=== PATIENT | male | born 1940 | race Caucasian/White ===

== ENCOUNTER → 2017-11-10 06:58 | Outpatient (CLI) | payer OTHER, SELFPAY ==
[2017-11-10 08:35] LABS: Add Manual Diff / Slide Review NO; Basophils Percent Auto 0.8 % (0-2); Eosinophils Percent Auto 2.3 % (2-4); Hematocrit 43.4 % (41-53); Hemoglobin 15.4 g/dL (13.5-17.5); Lymphocytes Percent Auto 26.2 % (25-40); Mean Corpuscular HGB Conc 35.4 % (30-36); Mean Corpuscular Hemoglobin 32.1 PG (26-34); Mean Corpuscular Volume 90.5 fL (80-100); Neutrophils Absolute Auto 2500 /uL (3000-5900); Neutrophils Percent Auto 57.7 % (50-75); Platelet Count 194 X10^3/uL (150-400); Red Cell Distribution Width 13.1 % (11.6-14.8); White Blood Cell Count 4.3 X10^3/uL (4.5-11.0)
[2017-11-10 12:23] LABS: Alanine Aminotransferase 21 IU/L (21-72); Albumin 4.2 g/dL (3.5-5.0); Albumin Globulin Ratio 1.6 (1.0-2.8); Alkaline Phosphatase 96 U/L (38-126); Aspartate Aminotransferase 25 IU/L (17-59); BUN Creatinine Ratio 25.6 (6-22); Bilirubin Total 1.6 mg/dL (0.2-1.3); Blood Urea Nitrogen 23 mg/dL (9-20); Carbon Dioxide 26 mmol/L (22-32); Chloride 105 mmol/L (98-107); Estimated Glomerular Filt Rate > 60.0 mL/min (>60); Globulin 2.7 g/dL (1.7-4.1); Glucose 97 mg/dL (80-110); HEMOLYSIS < 15 (0-50); Potassium 3.9 mmol/L (3.4-5.1); Sodium 142 mmol/L (137-145); Total Protein 6.9 g/dL (6.3-8.2)
== END ==
PROVIDERS: Family Provider Physician Assistant; PCP Physician Assistant; Visit Provider Psychiatry & Neurology Neurology
DX: T88.7XXA Unspecified adverse effect of drug or medicament, initial encounter (principal)
CPT/HCPCS: 36415; 80053; 85025

== ENCOUNTER → 2017-12-29 07:59 | Outpatient (CLI) | payer OTHER, SELFPAY ==
[2017-12-29 08:54] LABS: Add Manual Diff / Slide Review NO; Basophils Percent Auto 0.6 % (0-2); Eosinophils Percent Auto 2.4 % (2-4); Hematocrit 43.4 % (41-53); Hemoglobin 15.5 g/dL (13.5-17.5); Lymphocytes Percent Auto 24.2 % (25-40); Mean Corpuscular HGB Conc 35.7 % (30-36); Mean Corpuscular Volume 89.6 fL (80-100); Neutrophils Absolute Auto 3100 /uL (3000-5900); Neutrophils Percent Auto 58.8 % (50-75); Red Blood Cell Count 4.85 X10^6/uL (4.5-5.9); Red Cell Distribution Width 12.5 % (11.6-14.8); White Blood Cell Count 5.3 X10^3/uL (4.5-11.0)
[2017-12-29 09:40] LABS: Platelet Count 224 X10^3/uL (150-400)
== END ==
PROVIDERS: Family Provider Physician Assistant; PCP Physician Assistant; Visit Provider Physician Assistant
DX: D72.819 Decreased white blood cell count, unspecified (principal)
CPT/HCPCS: 36415; 85025

== ENCOUNTER → 2018-05-24 08:39 | Outpatient (CLI) | payer OTHER, SELFPAY ==
[2018-05-24 09:45] LABS: Alanine Aminotransferase 16 IU/L (21-72); Albumin 4.3 g/dL (3.5-5.0); Albumin Globulin Ratio 1.5 (1.0-2.8); Alkaline Phosphatase 90 U/L (38-126); Aspartate Aminotransferase 28 IU/L (17-59); BUN Creatinine Ratio 19.1 (6-22); Bilirubin Total 1.6 mg/dL (0.2-1.3); Blood Urea Nitrogen 21 mg/dL (9-20); Calcium 9.3 mg/dL (8.4-10.2); Carbon Dioxide 29 mmol/L (22-32); Chloride 102 mmol/L (98-107); Cholesterol 94 mg/dL (140-199); Estimated Glomerular Filt Rate > 60.0 mL/min (>60); Globulin 2.9 g/dL (1.7-4.1); Glucose 104 mg/dL (80-110); HDL Cholesterol 37 mg/dL (40-60); HEMOLYSIS < 15 (0-50); LDL Cholesterol Calculated 47 mg/dL (<100); Sodium 141 mmol/L (137-145); Total Protein 7.2 g/dL (6.3-8.2); Triglycerides 48 mg/dL (35-150)
== END ==
PROVIDERS: Family Provider Physician Assistant; PCP Physician Assistant; Visit Provider Internal Medicine Cardiovascular Disease
DX: E78.5 Hyperlipidemia, unspecified (principal); I10 Essential (primary) hypertension
CPT/HCPCS: 36415; 80053; 80061

== ENCOUNTER → 2018-09-30 16:35 | Outpatient (CLI) | payer OTHER, SELFPAY ==
[2018-09-30 19:53] LABS: Vitamin B12 601 pg/mL (239-931)
== END ==
PROVIDERS: PCP Physician Assistant; Visit Provider Physician Assistant
DX: E53.8 Deficiency of other specified B group vitamins (principal)
CPT/HCPCS: 36415; 82607

== ENCOUNTER 2019-05-18 14:30 | Outpatient (RCR) | payer OTHER, SELFPAY ==
--- NOTE | 2018-10-12 14:01 | ST.OPIE ---
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 Natalia Awad, [facility] Reason for Referral Parkinson's disease, hoarse voice Setting Setting Outpatient Care Patient History General Information This 78-yr-old male was diagnosed with Parkinson's disease ~2 yrs ago. He developed shuffling gait ~5 yrs ago and has experienced cognitive changes since diagnosis. He was seen for neuropsychomitric testing in March 2018 and diagnosed with mild neuro cognitive disorder. The pt continues with occasional balance and visuospatial processing problems and recently completed LSVT-Big with Physical Therapy 1 yr ago and continues with PT 1x/wk. He is interested in LSVT-Loud to improve voice/vocal loudness, as his voice has gotten softer , which is of particular impact on his . Pt denied tremor and swallow difficulties, although he reported a loss of smell and taste, which impacts his interest in food and has lessened his consumption. He does still drive limited distances and not on freeway. The pt has an extended family history of Parkinson's disease , including a brother who developed PD in his 40s and in his 60s; a sister with PD and significant dementia; a sister who was told she had PD and is now in a wheelchair, although the diagnosis is not certain. This obviously increases the pt's concern about his own developing symptoms. He also reported a brother, sister and 2 cousins who have been diagnosed with [place] Syndrome, which may be related to toxic environmental exposures. Finally, the pt has a pacemaker and is on blood thinners. He has concerns of falling, secondary to balance issues, and of potentially hitting his head and developing bleeding in his brain. He wears a helmet when engaged in any physical activity in which he may experience a fall (e.g., bike riding, walking outdoors, etc. ). His concern is exaccerbated by having had a sister who fell and from a brain hemorrhage. 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 Voice evaluation was initiated and will be completed in treatment. Pt was educated RE LSVT-Loud, as well as potential impact of Parkinson's disease on speech intelligibility, language skills, cognitive communication skills, swallow function/safety, and respiratory control and support for speech, swallow, cough, and general wellness. - Laryngeal Performance Voice Handicap Index Function Subtotal 24/40 Severe impact Physical Subtotal 17/40 Moderate impact Emotional Subtotal 15/40 Moderate-Severe impact Total Score 56/120 Moderate-Severe impact Severity Moderate (31-60) CAPE-V Overall Severity 55% Moderate Roughness 50% Moderate Loudness 39% Moderate Normal Resonance? Yes Maximum Phonation Time MPT Norms: Women (15-25) Men (25-35) Loudness (50-60 dB); Speaking Rate: Oral Reading of Sentences (190 Words Per Minute); Oral Reading of Paragraphs (160-170 WPM); Speaking Rate in Conversation (150-250 WPM) Maximum Phonation Time 42.48 sec @ avg 68 dB Maximum Phonation Time Adequate for Speech Maximum Phonation Time Comments Excellent respiratory control Pitch [place] Pitch [place] WNL Pitch [place] Comments 106-294 Hz @ avg 76 dB Breath Support Speaks on Room Air Yes Voice Pitch Range Norms: Women (100-300 Hz) Men (70-250 Hz) Fundamental Frequency Norms: Women (Mean: 225 Hz; Range: 155-334 Hz) Men ( Mean: 128 Hz; Range: 85-196 Hz) Voice Pitch Normal Limited Variation Voice Loudness Mildly Soft/Quiet Voice Phonatory-based Quality Hoarse Weak Intensity 59 dB in conversation Paradoxical Vocal Fold Movement No Indications Resonance Nasal Resonance Normal Oral Resonance Normal Therapeutic Techniques Therapy Tactics Breath Support Increase Loudness Findings Findings Moderate Impairment Observations Pt presents with 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 Pitch range is WNL; however, mild monotone voice is perceived during conversation. The pt is able to maintain phonation on single breath greater than normal limits, indicating excellent potential for using breath support and control to increase loudness and improve vocal quality. Speech is 100% intelligible. Facial expression appeared limited in today's conversation but will be further assessed with topics more conducive to facial expression use. Prognosis Rehabilitation Potential Excellent - Recommendations Treatment Recommended Yes: LSVT-Loud with use of cognitive tasks Treatment Frequency/Duration 16 visits in 4 wks Placement Recommendation Home Therapy Recommendations LSVT-Loud treatment with inclusion of cognitive exercises that require use of voice to target both vocal loudness in demanding situations and improve cognitive communication skills . Short Term Goals 1. Pt will sustain vowel phonation for 30 sec at 75 dB or greater across 3 trials to demonstrate consistent breath support for speech and improve vocal quality/stability. 2. Pt perform pitch glide exercises at avg of 65 dB or greater with min cues to increase pitch range and vocal stability at various pitches. 3. Pt will read Functional Phrases at avg of 70 dB or greater across 10 trials to increase speech intelligibility and promote carryover of vocal loudness into her functional environment. 4. Pt will read words/phrases with avg of 70 dB or greater with 90% accuracy and min cues to increase speech intelligibility. 5. Pt will maintain loudness levels between 60-65 dB in off -the-cuff remarks between structured tasks with min cues to increase speech intelligibility and promote carryover of adequate loudness in spontaneous conversation. Mechanical Shovel Operator Goals 1. Pt will produce prosodic features WFL in spontaneous conversation in 80% of opportunities to increase his ability to communicate ideas, opinions, and wants/needs. 2. Pt will produce vocal loudness in conversation WNL ( 65-75 dB) in 80% of opportunities to increase speech intelligibility in a variety of settings and with a variety of conversation partners. 3. Pt will report no more than mild impact of voice as measured by VHI (total score if patient perceptual rating). 4. Pt will exhibit vocal quality WNL as measured by CAPE-V (clinician perceptual rating). Patient/Caregiver Education Patient/Family Education Described results of evaluation Patient Understanding
--- NOTE | 2018-10-18 14:57 | ST.OPTN ---
Care Team Visit Care Team Role Provider Type Carisa Hoffmann PA-C Primary Care Provider Advanced Test Carrier Address: [address] [place] [address], [id number] Attending Provider Address: Phone: Fax: RESEARCH TECHNICIAN Treatment Note RESEARCH TECHNICIAN Treatment Note Start: 10/04/18 16:57 Freq: Status: Active Protocol: Document 10/18/18 11:14 ALEXANDRA (Rec: 10/18/18 11:30 ALEXANDRA [email or web address]) Speech Pathology Treatment Note Session Time Visit Start Time 08:30 Visit Stop Time 09:30 Total Visit Minutes 60 Visit Information Visit Number 04/01 Plan of Care Dates 10/04/18 - 12/22/18 [facility] Treatment Setting Outpatient Care Visit Type Note Type Treatment Note Next Note Type Next Note Type Treatment Note General Information General Information This 78-yr-old male was diagnosed with Parkinson's disease ~2 yrs ago. He developed shuffling gait ~5 yrs ago and has experienced cognitive changes since diagnosis. He was seen for neuropsychomitric testing in March 2018 and diagnosed with mild neuro cognitive disorder. The pt continues with occasional balance and visuospatial processing problems and recently completed LSVT-Big with Physical Therapy 1 yr ago and continues with PT 1x/wk. He is interested in LSVT-Loud to improve voice/vocal loudess, as his voice has gotten softer , which is of particular impact on his . Pt denied tremor and swallow difficulties, although he reported a loss of smell and taste, which impacts his interest in food and has lessened his consumption. He does still drive limited distances and not on freeway. The pt has an extended family history of Parkinson's disease , including a brother who developed PD in his 40s and in his 60s; a sister with PD and significant dementia; a sister who was told she had PD and is now in a wheelchair, although the diagnosis is not certain. This obviously increases the pt's concern about his own developing symptoms. He also reported a brother, sister and 2 cousins who have been diagnosed with [place] Syndrome, which may be related to toxic environmental exposures. Finally, the pt has a pacemaker and is on blood thinners. He has concerns of falling, secondary to balance issues, and of potentially hitting his head and developing bleeding in his brain. He wears a helmet when engaged in any physical activity in which he may experience a fall (e.g., bike riding, walking outdoors, etc. ). His concern is exaccerbated by having had a sister who fell and from a brain hemorrhage. Subjective Observations/Patient Presentation The pt arrived on time. He expressed concern that he may not be able to keep up with the home practice required for LSVT-Loud treatment. He requested and was provided the LSVT-Loud Homework Clinical Research Director to assist with compliance. He stated he still wished to initiate the treatment. Chief Complaint(s) Voice Additional Areas of Concern Cognition - STM Rehab Expectation/Goals: Patient Goals Increase vocal loudness to be heard by others, sandra Objective Short Term Goals 1. Pt will sustain vowel phonation for 30 sec at 75 dB or greater across 3 trials to demonstrate consistent breath support for speech and improve vocal quality/stability. 2. Pt perform pitch glide exercises at avg of 65 dB or greater with min cues to increase pitch range and vocal stability at various pitches. 3. Pt will read Functional Phrases at avg of 70 dB or greater across 10 trials to increase speech intelligibility and promote carryover of vocal loudness into her functional environment. 4. Pt will read words/phrases with avg of 70 dB or greater with 90% accuracy and min cues to increase speech intelligibility. 5. Pt will maintain loudness levels between 60-65 dB in off -the-cuff remarks between structured tasks with min cues to increase speech intelligibility and promote carryover of adequate loudness in spontaneous conversation. Manager Of Housekeeping Goals 1. Pt will produce prosodic features WFL in spontaneous conversation in 80% of opportunities to increase his ability to communicate ideas, opinions, and wants/needs. 2. Pt will produce vocal loudness in conversation WNL ( 65-75 dB) in 80% of opportunities to increase speech intelligibility in a variety of settings and with a variety of conversation partners. 3. Pt will report no more than mild impact of voice as measured by VHI (total score if patient perceptual rating). 4. Pt will exhibit vocal quality WNL as measured by CAPE-V (clinician perceptual rating). Treatment Activities Skilled education provided RE LSVT-Loud protocol and HEP. Initiated training in diaphragmatic breathing orally and with demonstration. Pt returned demonstration, exhibiting mixed diaphragmatic and clavicular breathing, resulting in increased shoulder and laryngeal tension . With guidance, he was able to increase toward diaphragmatic. Needs reinforcement. Collaborated with pt to establish Functional Phrases list. 8 statements were generated by the pt. Instructed pt to continue to build list of 10 over the next 1-2 days. Pt agreed. Initiated training of LSVT- Loud exercises: Sustained Phonation: MPT = 28. 41, dB not recorded in order to provide verbal feedback. Pt initially achieved 27.92 with avg loudness, mod-severe vocal hoarseness improved moderately with increased loudness. Pitch Range: 108-333 Hz. Avg loudness of Lows 74 dB; Highs 83 dB. Functional Phrases: Read with avg loudess of 69 dB Words & Phrases: Not targeted in this session. Will introduce in next. Conversation: Avg loudness across 7 trials: 61.6 dB; Range = 57-66 dB Assessment Patient Response to Treatment Good Rehab Potential Good Impairments Identified Cognitive-Linguistic Skills Memory - Short Term Parkinson's Disease Vocal Quality Assessment of Improvement The pt verbalized good understanding of LSVT-Loud protocol and desire to participate. He expressed some concern with HEP compliance and was appreciative of Homework Clinical Research Director to assist. He was responsive to training in diaphragmatic breathing and demonstrated initial shift from mixed (clavicular & diaphragmatic breathing) to diaphragmatic; needs reinforcement. He exhibited excellent duration of sustained phonation with moderate-severe vocal quality (hoarseness) pervasive throughout trial with loudness levels <70 dB. Vocal quality improved to intermittent hoarseness with increased loudness. The pt perceived the changed in quality with loudness levels. Loudness during reading task ( functional phrases) was near but below target levels, and loudness in conversation without prompting from Clinician often was significantly below normal/ target levels. The pt is an excellent candidate for LSVT-Loud, and prognosis is excellent if he complies with HEP. The pt did comment 2-3x over course of session on STM deficits, which will be screened and treated indirectly via speech tasks that require recall and/or other cognitive demands. Reviewed with Patient Goals Progress Being Made Home Exercise Program Patient/Caregiver Understanding Excellent Plan Therapeutic Contents Client Education Cognitive-Linguistic Training Home Exercise Program Voice Training Provided Patient/Caregiver Instruction Home Exercise Program Plan of Care Questions/Concerns Therapy Recommendations Continue with Current Program
--- NOTE | 2018-10-19 11:11 | ST.OPTN ---
Care Team Visit Care Team Role Provider Type Carisa Hoffmann PA-C Primary Care Provider Advanced Senior Designer Address: [address] [place] [address], [id number] Attending Provider Address: Phone: Fax: UPPER AND BOTTOM LACER HAND Treatment Note UPPER AND BOTTOM LACER HAND Treatment Note Start: 10/04/18 16:57 Freq: Status: Active Protocol: Document 10/19/18 10:59 ALEXANDRA (Rec: 10/19/18 11:11 ALEXANDRA [email or web address]) Speech Pathology Treatment Note Session Time Visit Start Time 08:30 Visit Stop Time 09:30 Total Visit Minutes 60 Visit Information Visit Number 05/02 Plan of Care Dates 10/04/18 - 12/22/18 [facility] Treatment Setting Outpatient Care Visit Type Note Type Treatment Note Next Note Type Next Note Type Treatment Note General Information General Information This 78-yr-old male was diagnosed with Parkinson's disease ~2 yrs ago. He developed shuffling gait ~5 yrs ago and has experienced cognitive changes since diagnosis. He was seen for neuropsychomitric testing in March 2018 and diagnosed with mild neuro cognitive disorder. The pt continues with occasional balance and visuospatial processing problems and recently completed LSVT-Big with Physical Therapy 1 yr ago and continues with PT 1x/wk. He is interested in LSVT-Loud to improve voice/vocal loudess, as his voice has gotten softer , which is of particular impact on his . Pt denied tremor and swallow difficulties, although he reported a loss of smell and taste, which impacts his interest in food and has lessened his consumption. He does still drive limited distances and not on freeway. The pt has an extended family history of Parkinson's disease , including a brother who developed PD in his 40s and in his 60s; a sister with PD and significant dementia; a sister who was told she had PD and is now in a wheelchair, although the diagnosis is not certain. This obviously increases the pt's concern about his own developing symptoms. He also reported a brother, sister and 2 cousins who have been diagnosed with [place] Syndrome, which may be related to toxic environmental exposures. Finally, the pt has a pacemaker and is on blood thinners. He has concerns of falling, secondary to balance issues, and of potentially hitting his head and developing bleeding in his brain. He wears a helmet when engaged in any physical activity in which he may experience a fall (e.g., bike riding, walking outdoors, etc. ). His concern is exaccerbated by having had a sister who fell and from a brain hemorrhage. Subjective Observations/Patient Presentation The pt arrived on time. He returned a completed homework sheet. Chief Complaint(s) Voice Additional Areas of Concern Cognition - STM Rehab Expectation/Goals: Patient Goals Increase vocal loudness to be heard by others, sandra Objective Short Term Goals 1. Pt will sustain vowel phonation for 30 sec at 75 dB or greater across 3 trials to demonstrate consistent breath support for speech and improve vocal quality/stability. 2. Pt perform pitch glide exercises at avg of 65 dB or greater with min cues to increase pitch range and vocal stability at various pitches. 3. Pt will read Functional Phrases at avg of 70 dB or greater across 10 trials to increase speech intelligibility and promote carryover of vocal loudness into her functional environment. 4. Pt will read words/phrases with avg of 70 dB or greater with 90% accuracy and min cues to increase speech intelligibility. 5. Pt will maintain loudness levels between 60-65 dB in off -the-cuff remarks between structured tasks with min cues to increase speech intelligibility and promote carryover of adequate loudness in spontaneous conversation. Director Asset Goals 1. Pt will produce prosodic features WFL in spontaneous conversation in 80% of opportunities to increase his ability to communicate ideas, opinions, and wants/needs. 2. Pt will produce vocal loudness in conversation WNL ( 65-75 dB) in 80% of opportunities to increase speech intelligibility in a variety of settings and with a variety of conversation partners. 3. Pt will report no more than mild impact of voice as measured by VHI (total score if patient perceptual rating). 4. Pt will exhibit vocal quality WNL as measured by CAPE-V (clinician perceptual rating). Treatment Activities Continued skilled education provided RE effects of PD on vocal loudness, breath support for speech, and associated goals of LSVT-Loud tx. All questions were answered. Continued collaboration with pt to establish Functional Phrases list. Pt completed LSVT-Loud exercises: Sustained Phonation: MPT = 31. 55, avg loundess 78.25 dB, mod verbal prompts, improved vocal quality with increased loudness, models and instructions to open throat and use expiratory muscles to power the voice. Excellent consistency of loudness levels over duration of each trial. Pitch Range: 83-331 Hz. Avg loudness of Lows 77.5 dB; Highs 81.5 dB. Functional Phrases: Read with avg loudness of 73.3 dB Words & Phrases: Read with avg loudness of 76.3 dB. Pt demonstrated increased self- perception of vocal loudness levels and ability to match target loudness (76 dB). Conversation: Avg loudness across 7 trials: 64 dB; Range = 60-69 dB Carryover Assignment: Conversation with Physical Therapist today. Assessment Patient Response to Treatment Good Rehab Potential Good Impairments Identified Cognitive-Linguistic Skills Memory - Short Term Parkinson's Disease Vocal Quality Assessment of Improvement The pt demonstrated and verbalized understanding of effects of PD on vocal loudness. Also demonstrated ability to increase loudness to meet target levels and to match a target x3 over reading of words and phrases tasks, indicating initial awareness of physical effort and auditory perception to meet targets. Loudness levels between tasks and in conversation tend to reduce significantly, as compared to levels in structured tasks. With verbal prompts, the pt did increase conversational loudness from low 60s dB to mid-upper 60s dB, improved from upper 50s dB yesterday. Reviewed with Patient Goals Progress Being Made Home Exercise Program Patient/Caregiver Understanding Excellent Plan Therapeutic Contents Client Education Cognitive-Linguistic Training Home Exercise Program Voice Training Provided Patient/Caregiver Instruction Home Exercise Program Plan of Care Questions/Concerns Therapy Recommendations Continue with Current Program
--- NOTE | 2018-10-20 13:03 | ST.OPTN ---
Care Team Visit Care Team Role Provider Type Carisa Hoffmann PA-C Primary Care Provider Advanced Combination Operator Address: [address] [place] [address], [id number] Attending Provider Address: Phone: Fax: INTERVENTIONAL CARDIOLOGIST Treatment Note INTERVENTIONAL CARDIOLOGIST Treatment Note Start: 10/04/18 16:57 Freq: Status: Active Protocol: Document 10/20/18 12:57 ALEXANDRA (Rec: 10/20/18 13:03 ALEXANDRA [email or web address]) Speech Pathology Treatment Note Session Time Visit Start Time 08:30 Visit Stop Time 09:30 Total Visit Minutes 60 Visit Information Visit Number 05/30 Plan of Care Dates 10/04/18 - 12/22/18 [facility] Treatment Setting Outpatient Care Visit Type Note Type Treatment Note Next Note Type Next Note Type Treatment Note General Information General Information This 78-yr-old male was diagnosed with Parkinson's disease ~2 yrs ago. He developed shuffling gait ~5 yrs ago and has experienced cognitive changes since diagnosis. He was seen for neuropsychomitric testing in March 2018 and diagnosed with mild neuro cognitive disorder. The pt continues with occasional balance and visuospatial processing problems and recently completed LSVT-Big with Physical Therapy 1 yr ago and continues with PT 1x/wk. He is interested in LSVT-Loud to improve voice/vocal loudess, as his voice has gotten softer , which is of particular impact on his . Pt denied tremor and swallow difficulties, although he reported a loss of smell and taste, which impacts his interest in food and has lessened his consumption. He does still drive limited distances and not on freeway. The pt has an extended family history of Parkinson's disease , including a brother who developed PD in his 40s and in his 60s; a sister with PD and significant dementia; a sister who was told she had PD and is now in a wheelchair, although the diagnosis is not certain. This obviously increases the pt's concern about his own developing symptoms. He also reported a brother, sister and 2 cousins who have been diagnosed with [place] Syndrome, which may be related to toxic environmental exposures. Finally, the pt has a pacemaker and is on blood thinners. He has concerns of falling, secondary to balance issues, and of potentially hitting his head and developing bleeding in his brain. He wears a helmet when engaged in any physical activity in which he may experience a fall (e.g., bike riding, walking outdoors, etc. ). His concern is exaccerbated by having had a sister who fell and from a brain hemorrhage. Subjective Observations/Patient Presentation The pt arrived on time. He returned a completed homework sheet. Chief Complaint(s) Voice Additional Areas of Concern Cognition - STM Rehab Expectation/Goals: Patient Goals Increase vocal loudness to be heard by others, sandra Objective Short Term Goals 1. Pt will sustain vowel phonation for 30 sec at 75 dB or greater across 3 trials to demonstrate consistent breath support for speech and improve vocal quality/stability. 2. Pt perform pitch glide exercises at avg of 65 dB or greater with min cues to increase pitch range and vocal stability at various pitches. 3. Pt will read Functional Phrases at avg of 70 dB or greater across 10 trials to increase speech intelligibility and promote carryover of vocal loudness into her functional environment. 4. Pt will read words/phrases with avg of 70 dB or greater with 90% accuracy and min cues to increase speech intelligibility. 5. Pt will maintain loudness levels between 60-65 dB in off -the-cuff remarks between structured tasks with min cues to increase speech intelligibility and promote carryover of adequate loudness in spontaneous conversation. Reduction Furnace Operator Goals 1. Pt will produce prosodic features WFL in spontaneous conversation in 80% of opportunities to increase his ability to communicate ideas, opinions, and wants/needs. 2. Pt will produce vocal loudness in conversation WNL ( 65-75 dB) in 80% of opportunities to increase speech intelligibility in a variety of settings and with a variety of conversation partners. 3. Pt will report no more than mild impact of voice as measured by VHI (total score if patient perceptual rating). 4. Pt will exhibit vocal quality WNL as measured by CAPE-V (clinician perceptual rating). Treatment Activities Continued skilled education provided RE effects of PD on vocal loudness, breath support for speech, and associated goals of LSVT-Loud tx. All questions were answered. Completed collaboration with pt to establish Functional Phrases list. Pt completed LSVT-Loud exercises: Sustained Phonation: MPT = 42 sec, avg loundess 83 dB, min verbal prompts, improved vocal quality with increased loudness, models and instructions to open throat and use expiratory muscles to power the voice. Excellent consistency of loudness levels over duration of each trial. Pitch Range: 88-319 Hz. Avg loudness of Lows 77.3 dB; Highs 82.7 dB. Functional Phrases: Read with avg loudness of 75.6 dB Words & Phrases: Read with avg loudness of 76 dB. Pt demonstrated increased self- perception of vocal loudness levels and ability to match target loudness (76 dB). Pt read a Bible passage (Psalm 26) with avg loudness 69 dB Conversation: Avg loudness across 7 trials: 67.8 dB; Range = 64-70 dB Carryover Assignment: Conversation with while gardening. Assessment Patient Response to Treatment Good Rehab Potential Good Impairments Identified Cognitive-Linguistic Skills Memory - Short Term Parkinson's Disease Vocal Quality Assessment of Improvement The pt demonstrated excellent improvement today in meeting target loudness levels in structured tasks and carrying over loudness into conversation with less frequent or extensive prompts required. He is demonstrating excellent understanding of tx targets, goals and purposes and is beginning to exhibit ability to estimate loudness levels. Continue tx per LSVT-Loud protocol. Reviewed with Patient Goals Progress Being Made Home Exercise Program Patient/Caregiver Understanding Excellent Plan Therapeutic Contents Client Education Cognitive-Linguistic Training Home Exercise Program Voice Training Provided Patient/Caregiver Instruction Home Exercise Program Plan of Care Questions/Concerns Therapy Recommendations Continue with Current Program
--- NOTE | 2018-10-25 16:54 | ST.OPTN ---
Care Team Visit Care Team Role Provider Type Carisa Hoffmann PA-C Primary Care Provider Advanced Gastroenterology Physician Address: [address] [place] [address], [id number] Attending Provider Address: Phone: Fax: NATURAL RESOURCES INSTRUCTOR Treatment Note NATURAL RESOURCES INSTRUCTOR Treatment Note Start: 10/04/18 16:57 Freq: Status: Active Protocol: Document 10/25/18 16:41 ALEXANDRA (Rec: 10/25/18 16:54 ALEXANDRA [email or web address]) Speech Pathology Treatment Note Session Time Visit Start Time 12:30 Visit Stop Time 13:30 Total Visit Minutes 60 Visit Information Visit Number 07/30 Plan of Care Dates 10/04/18 - 12/22/18 [facility] Treatment Setting Outpatient Care Visit Type Note Type Treatment Note Next Note Type Next Note Type Treatment Note General Information General Information This 78-yr-old male was diagnosed with Parkinson's disease ~2 yrs ago. He developed shuffling gait ~5 yrs ago and has experienced cognitive changes since diagnosis. He was seen for neuropsychomitric testing in March 2018 and diagnosed with mild neuro cognitive disorder. The pt continues with occasional balance and visuospatial processing problems and recently completed LSVT-Big with Physical Therapy 1 yr ago and continues with PT 1x/wk. He is interested in LSVT-Loud to improve voice/vocal loudess, as his voice has gotten softer , which is of particular impact on his . Pt denied tremor and swallow difficulties, although he reported a loss of smell and taste, which impacts his interest in food and has lessened his consumption. He does still drive limited distances and not on freeway. The pt has an extended family history of Parkinson's disease , including a brother who developed PD in his 40s and in his 60s; a sister with PD and significant dementia; a sister who was told she had PD and is now in a wheelchair, although the diagnosis is not certain. This obviously increases the pt's concern about his own developing symptoms. He also reported a brother, sister and 2 cousins who have been diagnosed with [place] Syndrome, which may be related to toxic environmental exposures. Finally, the pt has a pacemaker and is on blood thinners. He has concerns of falling, secondary to balance issues, and of potentially hitting his head and developing bleeding in his brain. He wears a helmet when engaged in any physical activity in which he may experience a fall (e.g., bike riding, walking outdoors, etc. ). His concern is exaccerbated by having had a sister who fell and from a brain hemorrhage. Subjective Observations/Patient Presentation The pt arrived on time. He reported not completing HEP tasks on Thursday and completing 1 set only on Sat and Sun. He verbalized understanding of protocol calling for practice x2/day but stated his schedule was too busy and/or he was too tired to complete them as recommended. Chief Complaint(s) Voice Additional Areas of Concern Cognition - STM Rehab Expectation/Goals: Patient Goals Increase vocal loudness to be heard by others, sandra Objective Short Term Goals 1. Pt will sustain vowel phonation for 30 sec at 75 dB or greater across 3 trials to demonstrate consistent breath support for speech and improve vocal quality/stability. 2. Pt perform pitch glide exercises at avg of 65 dB or greater with min cues to increase pitch range and vocal stability at various pitches. 3. Pt will read Functional Phrases at avg of 70 dB or greater across 10 trials to increase speech intelligibility and promote carryover of vocal loudness into her functional environment. 4. Pt will read words/phrases with avg of 70 dB or greater with 90% accuracy and min cues to increase speech intelligibility. 5. Pt will maintain loudness levels between 60-65 dB in off -the-cuff remarks between structured tasks with min cues to increase speech intelligibility and promote carryover of adequate loudness in spontaneous conversation. Education Technician Goals 1. Pt will produce prosodic features WFL in spontaneous conversation in 80% of opportunities to increase his ability to communicate ideas, opinions, and wants/needs. 2. Pt will produce vocal loudness in conversation WNL ( 65-75 dB) in 80% of opportunities to increase speech intelligibility in a variety of settings and with a variety of conversation partners. 3. Pt will report no more than mild impact of voice as measured by VHI (total score if patient perceptual rating). 4. Pt will exhibit vocal quality WNL as measured by CAPE-V (clinician perceptual rating). Treatment Activities Skilled education/feedback provided RE HEP tasks and schedule. Pt verbalized understanding. Instructed pt to reduce vocal loudness during structured tasks to 75- 80 dB during sustained phonation and pitch range exercises and to 70-75 dB during speech tasks in order to maintain best quality of voice and target functional levels to promote carryover. Pt completed LSVT-Loud exercises: Sustained Phonation: MPT = 37 sec, avg loundess 77.1 dB, min verbal prompts, improved vocal quality with increased loudness, models and instructions to open throat and use expiratory muscles to power the voice. Excellent consistency of loudness levels over duration of each trial. Pitch Range: 106-355 Hz. Avg loudness of Lows 78.8 dB; Highs 79.6 dB. Functional Phrases: Read with avg loudness of 75.3 dB Sentences: Read with avg loudness of 73.8 dB and generated novel sentences in picture description tasks with avg 71.3 dB. Conversation: Avg 63.9 dB; initially 59-64 at start of session, improving over course of session in response to mod -max verbal prompts. Carryover Assignment: Conversation with while working on house projects. Assessment Patient Response to Treatment Good Rehab Potential Good Impairments Identified Cognitive-Linguistic Skills Memory - Short Term Parkinson's Disease Vocal Quality Assessment of Improvement Pt continues to make progress toward goals. Reduced conversational loudness levels and increased need for verbal prompts required today vs last session, likely impact of reduced compliance with HEP recommendations over 3 days without tx sessions. The pt exhibits improving awarenss of loudness levels and excellent consistency in loudness over structured tasks; decreasing in [id number] remarks and conversation. Continue tx per LSVT-Loud protocol. Reviewed with Patient Goals Progress Being Made Home Exercise Program Patient/Caregiver Understanding Excellent Plan Therapeutic Contents Client Education Cognitive-Linguistic Training Home Exercise Program Voice Training Provided Patient/Caregiver Instruction Home Exercise Program Plan of Care Questions/Concerns Therapy Recommendations Continue with Current Program
--- NOTE | 2018-10-27 13:24 | ST.OPTN ---
Care Team Visit Care Team Role Provider Type Carisa Hoffmann PA-C Primary Care Provider Advanced Vascular Nurse Address: [address] [place] [address], [id number] Natalia Awad Attending Provider Non-Staff Address: [address] [place] [address], [id number] SUPERVISOR INSTRUMENT REPAIR Treatment Note SUPERVISOR INSTRUMENT REPAIR Treatment Note Start: 10/04/18 16:57 Freq: Status: Active Protocol: Document 10/26/18 13:14 ALEXANDRA (Rec: 10/27/18 13:23 ALEXANDRA [email or web address]) Speech Pathology Treatment Note Session Time Visit Start Time 08:30 Visit Stop Time 09:30 Total Visit Minutes 60 Visit Information Visit Number 08/30 Plan of Care Dates 10/04/18 - 12/22/18 [facility] Setting Treatment Setting Outpatient Care Visit Type Note Type Treatment Note Next Note Type Next Note Type Treatment Note General Information General Information This 78-yr-old male was diagnosed with Parkinson's disease ~2 yrs ago. He developed shuffling gait ~5 yrs ago and has experienced cognitive changes since diagnosis. He was seen for neuropsychomitric testing in March 2018 and diagnosed with mild neuro cognitive disorder. The pt continues with occasional balance and visuospatial processing problems and recently completed LSVT-Big with Physical Therapy 1 yr ago and continues with PT 1x/wk. He is interested in LSVT-Loud to improve voice/vocal loudess, as his voice has gotten softer , which is of particular impact on his . Pt denied tremor and swallow difficulties, although he reported a loss of smell and taste, which impacts his interest in food and has lessened his consumption. He does still drive limited distances and not on freeway. The pt has an extended family history of Parkinson's disease , including a brother who developed PD in his 40s and in his 60s; a sister with PD and significant dementia; a sister who was told she had PD and is now in a wheelchair, although the diagnosis is not certain. This obviously increases the pt's concern about his own developing symptoms. He also reported a brother, sister and 2 cousins who have been diagnosed with [place] Syndrome, which may be related to toxic environmental exposures. Finally, the pt has a pacemaker and is on blood thinners. He has concerns of falling, secondary to balance issues, and of potentially hitting his head and developing bleeding in his brain. He wears a helmet when engaged in any physical activity in which he may experience a fall (e.g., bike riding, walking outdoors, etc. ). His concern is exaccerbated by having had a sister who fell and from a brain hemorrhage. Subjective Observations/Patient Presentation The pt arrived on time. He completed HEP tasks last night . He had questions RE breath support for voice and strategies to reduce laryngeal tension. Chief Complaint(s) Voice Additional Areas of Concern Cognition - STM Rehab Expectation/Goals: Patient Goals Increase vocal loudness to be heard by others, sandra Objective Short Term Goals 1. Pt will sustain vowel phonation for 30 sec at 75 dB or greater across 3 trials to demonstrate consistent breath support for speech and improve vocal quality/stability. 2. Pt perform pitch glide exercises at avg of 65 dB or greater with min cues to increase pitch range and vocal stability at various pitches. 3. Pt will read Functional Phrases at avg of 70 dB or greater across 10 trials to increase speech intelligibility and promote carryover of vocal loudness into her functional environment. 4. Pt will read words/phrases with avg of 70 dB or greater with 90% accuracy and min cues to increase speech intelligibility. 5. Pt will maintain loudness levels between 60-65 dB in off -the-cuff remarks between structured tasks with min cues to increase speech intelligibility and promote carryover of adequate loudness in spontaneous conversation. Front Sight Attacher Goals 1. Pt will produce prosodic features WFL in spontaneous conversation in 80% of opportunities to increase his ability to communicate ideas, opinions, and wants/needs. 2. Pt will produce vocal loudness in conversation WNL ( 65-75 dB) in 80% of opportunities to increase speech intelligibility in a variety of settings and with a variety of conversation partners. 3. Pt will report no more than mild impact of voice as measured by VHI (total score if patient perceptual rating). 4. Pt will exhibit vocal quality WNL as measured by CAPE-V (clinician perceptual rating). Treatment Activities Skilled education/feedback provided RE pt's questions about breath support and laryngeal tension. Training provided in diaphragmatic breathing and forward resonance tasks to warm up the voice and reduce laryngeal tension. Pt returned demonstrations with improved vocal quality. Pt completed LSVT-Loud exercises: Sustained Phonation: MPT = 28. 9 sec, avg loundess 77.4 dB, min verbal prompts. Excellent consistency of loudness levels over duration of each trial. Pitch Range: 108-277 Hz. Avg loudness of Lows 77.3 dB; Highs 80.8 dB. Functional Phrases: Read with avg loudness of 73 dB Sentences: Read with avg loudness of 73 dB (task = completing verbal analogies). Conversation: Avg 60 dB mod prompts Monologue: Avg 69.3 dB min prompts Skilled feedback provided. Carryover Assignment: Conversation with while working on house projects. Assessment Patient Response to Treatment Good Rehab Potential Good Impairments Identified Cognitive-Linguistic Skills Memory - Short Term Parkinson's Disease Vocal Quality Assessment of Improvement Pt continues to make progress toward goals and demonstrating reduced conversational loudness levels, increasing with verbal prompts. The pt was responsive to education/ training RE breath support and techniques to reduce vocal strain. Vocal quality improving as pt increases ability to control and monitor voicing. Continue tx per LSVT-Loud protocol. Reviewed with Patient Goals Progress Being Made Home Exercise Program Patient/Caregiver Understanding Excellent Plan Therapeutic Contents Client Education Cognitive-Linguistic Training Home Exercise Program Voice Training Provided Patient/Caregiver Instruction Home Exercise Program Plan of Care Questions/Concerns Therapy Recommendations Continue with Current Program
--- NOTE | 2018-10-27 13:32 | ST.OPTN ---
Care Team Visit Care Team Role Provider Type Carisa Hoffmann PA-C Primary Care Provider Advanced Station Cashier Address: [address] [place] [address], [id number] Natalia Awad Attending Provider Non-Staff Address: [address] [place] [address], [id number] WASHERY ENGINEER Treatment Note WASHERY ENGINEER Treatment Note Start: 10/04/18 16:57 Freq: Status: Active Protocol: Document 10/27/18 13:24 ALEXANDRA (Rec: 10/27/18 13:32 ALEXANDRA [id number]) Speech Pathology Treatment Note Session Time Visit Start Time 08:30 Visit Stop Time 09:30 Total Visit Minutes 60 Visit Information Visit Number 09/29 Plan of Care Dates 10/04/18 - 12/22/18 Insurance Information [employer] $40 co-pay Setting Treatment Setting Outpatient Care Visit Type Note Type Treatment Note Next Note Type Next Note Type Treatment Note General Information General Information This 78-yr-old male was diagnosed with Parkinson's disease ~2 yrs ago. He developed shuffling gait ~5 yrs ago and has experienced cognitive changes since diagnosis. He was seen for neuropsychomitric testing in March 2018 and diagnosed with mild neuro cognitive disorder. The pt continues with occasional balance and visuospatial processing problems and recently completed LSVT-Big with Physical Therapy 1 yr ago and continues with PT 1x/wk. He is interested in LSVT-Loud to improve voice/vocal loudess, as his voice has gotten softer , which is of particular impact on his . Pt denied tremor and swallow difficulties, although he reported a loss of smell and taste, which impacts his interest in food and has lessened his consumption. He does still drive limited distances and not on freeway. The pt has an extended family history of Parkinson's disease , including a brother who developed PD in his 40s and in his 60s; a sister with PD and significant dementia; a sister who was told she had PD and is now in a wheelchair, although the diagnosis is not certain. This obviously increases the pt's concern about his own developing symptoms. He also reported a brother, sister and 2 cousins who have been diagnosed with [place] Syndrome, which may be related to toxic environmental exposures. Finally, the pt has a pacemaker and is on blood thinners. He has concerns of falling, secondary to balance issues, and of potentially hitting his head and developing bleeding in his brain. He wears a helmet when engaged in any physical activity in which he may experience a fall (e.g., bike riding, walking outdoors, etc. ). His concern is exaccerbated by having had a sister who fell and from a brain hemorrhage. Subjective Observations/Patient Presentation The pt arrived on time. He completed HEP tasks yesterday afternoon rather than putting it off until the last thing at night. Reported improved results with this timing. Chief Complaint(s) Voice Additional Areas of Concern Cognition - STM Rehab Expectation/Goals: Patient Goals Increase vocal loudness to be heard by others, sandra Objective Short Term Goals 1. Pt will sustain vowel phonation for 30 sec at 75 dB or greater across 3 trials to demonstrate consistent breath support for speech and improve vocal quality/stability. 2. Pt perform pitch glide exercises at avg of 65 dB or greater with min cues to increase pitch range and vocal stability at various pitches. 3. Pt will read Functional Phrases at avg of 70 dB or greater across 10 trials to increase speech intelligibility and promote carryover of vocal loudness into her functional environment. 4. Pt will read words/phrases with avg of 70 dB or greater with 90% accuracy and min cues to increase speech intelligibility. 5. Pt will maintain loudness levels between 60-65 dB in off -the-cuff remarks between structured tasks with min cues to increase speech intelligibility and promote carryover of adequate loudness in spontaneous conversation. [employer] Claims Adjuster Goals 1. Pt will produce prosodic features WFL in spontaneous conversation in 80% of opportunities to increase his ability to communicate ideas, opinions, and wants/needs. 2. Pt will produce vocal loudness in conversation WNL ( 65-75 dB) in 80% of opportunities to increase speech intelligibility in a variety of settings and with a variety of conversation partners. 3. Pt will report no more than mild impact of voice as measured by VHI (total score if patient perceptual rating). 4. Pt will exhibit vocal quality WNL as measured by CAPE-V (clinician perceptual rating). Treatment Activities Pt completed LSVT-Loud exercises: Sustained Phonation: MPT = 36. 9 sec, avg loundess 77 dB, min verbal prompts. Each trial completed at different pitch. Pt maintained consistent vocal quality and loudness across all trials and pitches. Pitch Range: 92-284 Hz. Avg loudness of Lows 80.9 dB; Highs 80.1 dB. Functional Phrases: Read with avg loudness of 73 dB Sentences: Read with avg loudness of 71.4 dB (task = stating similarities & differences) Conversation: Avg 66.3 dB mod prompts Skilled feedback provided. Carryover Assignment: Conversation with while working on house projects. Assessment Patient Response to Treatment Good Rehab Potential Good Impairments Identified Cognitive-Linguistic Skills Memory - Short Term Parkinson's Disease Vocal Quality Assessment of Improvement Pt continues to make progress toward goals and demonstrating reduced conversational loudness levels, increasing with verbal prompts. Increased frequency of cuing required with tasks of increased cognitive demand (stating similarities/differences, conversation). Pt was responsive to skilled feedback and acknowledged increased challenge of monitoring loudness while thinking about speech topics. He did, however , demonstrate self-cuing and correction of low vocal loudness for the first time, indicating increased awareness . Continue tx per LSVT-Loud protocol. Reviewed with Patient Goals Progress Being Made Home Exercise Program Patient/Caregiver Understanding Excellent Plan Therapeutic Contents Client Education Cognitive-Linguistic Training Home Exercise Program Voice Training Provided Patient/Caregiver Instruction Home Exercise Program Plan of Care Questions/Concerns Therapy Recommendations Continue with Current Program
--- NOTE | 2018-10-28 09:50 | ST.OPTN ---
Care Team Visit Care Team Role Provider Type Carisa Hoffmann PA-C Primary Care Provider Advanced Slack Cooper Address: [address] [place] [address], [id number] Natalia Awad Attending Provider Non-Staff Address: [address] [place] [address], [id number] PRIMARY CARE NURSE Treatment Note PRIMARY CARE NURSE Treatment Note Start: 10/04/18 16:57 Freq: Status: Active Protocol: Document 10/28/18 09:39 ALEXANDRA (Rec: 10/28/18 09:50 ALEXANDRA [id number]) Speech Pathology Treatment Note Session Time Visit Start Time 08:30 Visit Stop Time 09:33 Total Visit Minutes 63 Visit Information Visit Number 10/30 Plan of Care Dates 10/04/18 - 12/22/18 Insurance Information [employer] $40 co-pay Setting Treatment Setting Outpatient Care Visit Type Note Type Treatment Note Next Note Type Next Note Type Treatment Note General Information General Information This 78-yr-old male was diagnosed with Parkinson's disease ~2 yrs ago. He developed shuffling gait ~5 yrs ago and has experienced cognitive changes since diagnosis. He was seen for neuropsychomitric testing in March 2018 and diagnosed with mild neuro cognitive disorder. The pt continues with occasional balance and visuospatial processing problems and recently completed LSVT-Big with Physical Therapy 1 yr ago and continues with PT 1x/wk. He is interested in LSVT-Loud to improve voice/vocal loudess, as his voice has gotten softer , which is of particular impact on his . Pt denied tremor and swallow difficulties, although he reported a loss of smell and taste, which impacts his interest in food and has lessened his consumption. He does still drive limited distances and not on freeway. The pt has an extended family history of Parkinson's disease , including a brother who developed PD in his 40s and in his 60s; a sister with PD and significant dementia; a sister who was told she had PD and is now in a wheelchair, although the diagnosis is not certain. This obviously increases the pt's concern about his own developing symptoms. He also reported a brother, sister and 2 cousins who have been diagnosed with [place] Syndrome, which may be related to toxic environmental exposures. Finally, the pt has a pacemaker and is on blood thinners. He has concerns of falling, secondary to balance issues, and of potentially hitting his head and developing bleeding in his brain. He wears a helmet when engaged in any physical activity in which he may experience a fall (e.g., bike riding, walking outdoors, etc. ). His concern is exaccerbated by having had a sister who fell and from a brain hemorrhage. Subjective Observations/Patient Presentation The pt arrived on time. No new complaints. Chief Complaint(s) Voice Additional Areas of Concern Cognition - STM Rehab Expectation/Goals: Patient Goals Increase vocal loudness to be heard by others, sandra Objective Short Term Goals 1. Pt will sustain vowel phonation for 30 sec at 75 dB or greater across 3 trials to demonstrate consistent breath support for speech and improve vocal quality/stability. 2. Pt perform pitch glide exercises at avg of 65 dB or greater with min cues to increase pitch range and vocal stability at various pitches. 3. Pt will read Functional Phrases at avg of 70 dB or greater across 10 trials to increase speech intelligibility and promote carryover of vocal loudness into her functional environment. 4. Pt will read words/phrases with avg of 70 dB or greater with 90% accuracy and min cues to increase speech intelligibility. 5. Pt will maintain loudness levels between 60-65 dB in off -the-cuff remarks between structured tasks with min cues to increase speech intelligibility and promote carryover of adequate loudness in spontaneous conversation. Shelter Goals 1. Pt will produce prosodic features WFL in spontaneous conversation in 80% of opportunities to increase his ability to communicate ideas, opinions, and wants/needs. 2. Pt will produce vocal loudness in conversation WNL ( 65-75 dB) in 80% of opportunities to increase speech intelligibility in a variety of settings and with a variety of conversation partners. 3. Pt will report no more than mild impact of voice as measured by VHI (total score if patient perceptual rating). 4. Pt will exhibit vocal quality WNL as measured by CAPE-V (clinician perceptual rating). Treatment Activities Pt exhibited consistent diplophonia in sustained phonation and pitch exercises. Instructed pt in forward resonance tasks with cues to keep the jaw open and tongue low in your mouth. Using /m/, /mo/ chanting, and straw phonation, the pt acheived clear vocal quality and maintained it in sustained phonation and pitch glide tasks. Information/ instructions provided in writing for home practice. Pt completed LSVT-Loud exercises: Sustained Phonation: MPT = 43. 2 sec, avg loundess 78.3 dB, min verbal prompts. Pitch Range: 102-294 Hz. Avg loudness of Lows 80.8 dB; Highs 79.5 dB. Functional Phrases: Read with avg loudness of 73 dB Sentences: Read with avg loudness of 70.7 dB (task = stating similarities & differences); Background noise added to simulate different environment. Pt increased vocal loudenss and was intellgible throughout. No instrumental measurements made . Conversation: Avg 66.7 dB mod prompts Skilled feedback provided. Carryover Assignment: Conversation with family visiting. Assessment Patient Response to Treatment Good Rehab Potential Good Impairments Identified Cognitive-Linguistic Skills Memory - Short Term Parkinson's Disease Vocal Quality Assessment of Improvement Pt continues to make progress toward goals. Demonstrating consistent loudness levels throughout tasks. Continues to drop significantly in loudness in spontaneous conversation, although projecting more frequently within normal conversational loudness levels (low end of: low 60s dB). Continue tx per LSVT-Loud protocol. Reviewed with Patient Goals Progress Being Made Home Exercise Program Patient/Caregiver Understanding Excellent Plan Therapeutic Contents Client Education Cognitive-Linguistic Training Home Exercise Program Voice Training Provided Patient/Caregiver Instruction Home Exercise Program Plan of Care Questions/Concerns Therapy Recommendations Continue with Current Program
--- NOTE | 2018-11-01 16:41 | ST.OPTN ---
Care Team Visit Care Team Role Provider Type Carisa Hoffmann PA-C Primary Care Provider Advanced Clinical Appeals Reviewer Address: [address] [place] [address], [phone] Natalia Awad Attending Provider Non-Staff Address: [address] [place] [address], [id number] PATROL SUPERVISOR Treatment Note PATROL SUPERVISOR Treatment Note Start: 10/04/18 16:57 Freq: Status: Active Protocol: Document 11/01/18 16:32 ALEXANDRA (Rec: 11/01/18 16:41 ALEXANDRA [email or web address]) Speech Pathology Treatment Note Session Time Visit Start Time 08:30 Visit Stop Time 09:30 Total Visit Minutes 60 Visit Information Visit Number 11/30 Plan of Care Dates 10/04/18 - 12/22/18 Insurance Information [employer] $40 co-pay Setting Treatment Setting Outpatient Care Visit Type Note Type Treatment Note Next Note Type Next Note Type Progress Note General Information General Information This 78-yr-old male was diagnosed with Parkinson's disease ~2 yrs ago. He developed shuffling gait ~5 yrs ago and has experienced cognitive changes since diagnosis. He was seen for neuropsychomitric testing in March 2018 and diagnosed with mild neuro cognitive disorder. The pt continues with occasional balance and visuospatial processing problems and recently completed LSVT-Big with Physical Therapy 1 yr ago and continues with PT 1x/wk. He is interested in LSVT-Loud to improve voice/vocal loudess, as his voice has gotten softer , which is of particular impact on his . Pt denied tremor and swallow difficulties, although he reported a loss of smell and taste, which impacts his interest in food and has lessened his consumption. He does still drive limited distances and not on freeway. The pt has an extended family history of Parkinson's disease , including a brother who developed PD in his 40s and in his 60s; a sister with PD and significant dementia; a sister who was told she had PD and is now in a wheelchair, although the diagnosis is not certain. This obviously increases the pt's concern about his own developing symptoms. He also reported a brother, sister and 2 cousins who have been diagnosed with [place] Syndrome, which may be related to toxic environmental exposures. Finally, the pt has a pacemaker and is on blood thinners. He has concerns of falling, secondary to balance issues, and of potentially hitting his head and developing bleeding in his brain. He wears a helmet when engaged in any physical activity in which he may experience a fall (e.g., bike riding, walking outdoors, etc. ). His concern is exaccerbated by having had a sister who fell and from a brain hemorrhage. Subjective Observations/Patient Presentation The pt arrived on time. No new complaints. Chief Complaint(s) Voice Additional Areas of Concern Cognition - STM Rehab Expectation/Goals: Patient Goals Increase vocal loudness to be heard by others, sandra Objective Short Term Goals 1. Pt will sustain vowel phonation for 30 sec at 75 dB or greater across 3 trials to demonstrate consistent breath support for speech and improve vocal quality/stability. 2. Pt perform pitch glide exercises at avg of 65 dB or greater with min cues to increase pitch range and vocal stability at various pitches. 3. Pt will read Functional Phrases at avg of 70 dB or greater across 10 trials to increase speech intelligibility and promote carryover of vocal loudness into her functional environment. 4. Pt will read words/phrases with avg of 70 dB or greater with 90% accuracy and min cues to increase speech intelligibility. 5. Pt will maintain loudness levels between 60-65 dB in off -the-cuff remarks between structured tasks with min cues to increase speech intelligibility and promote carryover of adequate loudness in spontaneous conversation. [facility] Goals 1. Pt will produce prosodic features WFL in spontaneous conversation in 80% of opportunities to increase his ability to communicate ideas, opinions, and wants/needs. 2. Pt will produce vocal loudness in conversation WNL ( 65-75 dB) in 80% of opportunities to increase speech intelligibility in a variety of settings and with a variety of conversation partners. 3. Pt will report no more than mild impact of voice as measured by VHI (total score if patient perceptual rating). 4. Pt will exhibit vocal quality WNL as measured by CAPE-V (clinician perceptual rating). Treatment Activities Facilitated vocal warm-up exercises using forward phonation. Guided pt in forward resonance tasks with cues to keep the jaw open and tongue low in your mouth. Using /m/ and /mo/ chanting, the pt acheived intermittently clear vocal quality in these structured tasks. Occasional diplophonia perceived by PATROL SUPERVISOR and pt during sustained phonation and pitch glide exercises; however, pt exhibited increased control by shifting out of it once identified. Pt completed LSVT-Loud exercises: Sustained Phonation: MPT = 47. 8 sec, avg loundess 78 dB, min verbal prompts. Pitch Range: 96-281 Hz. Avg loudness of Lows 78 dB; Highs 78.6 dB. Functional Phrases: Read with avg loudness of 75 dB Monologue: Avg 66 dB Paragraphs: Read with avg loudness of 72.9 dB Conversation: Avg 68 dB mod- max prompts Skilled feedback provided. Assessment Patient Response to Treatment Good Rehab Potential Good Impairments Identified Cognitive-Linguistic Skills Memory - Short Term Parkinson's Disease Vocal Quality Assessment of Improvement Pt continues to make progress toward goals. Demonstrating consistent loudness levels throughout tasks. Continues to drop in loudness in spontaneous conversation, although projecting more frequently within normal conversational loudness levels (mid- to high 60s). Continue tx per LSVT-Loud protocol. Reviewed with Patient Goals Progress Being Made Home Exercise Program Patient/Caregiver Understanding Excellent Plan Therapeutic Contents Client Education Cognitive-Linguistic Training Home Exercise Program Voice Training Provided Patient/Caregiver Instruction Home Exercise Program Plan of Care Questions/Concerns Therapy Recommendations Continue with Current Program
--- NOTE | 2018-11-02 16:05 | ST.OPTN ---
Care Team Visit Care Team Role Provider Type Carisa Hoffmann PA-C Primary Care Provider Advanced Food Beverage Attendant Address: [address] [place] [address], [id number] Natalia Awad Attending Provider Non-Staff Address: [address] [place] [address], [id number] SALES MANAGEMENT INTERN Treatment Note SALES MANAGEMENT INTERN Treatment Note Start: 10/04/18 16:57 Freq: Status: Active Protocol: Document 11/02/18 14:28 ALEXANDRA (Rec: 11/02/18 16:05 ALEXANDRA [email or web address]) Speech Pathology Treatment Note Session Time Visit Start Time 08:30 Visit Stop Time 09:30 Total Visit Minutes 60 Visit Information Visit Number 12/30 Plan of Care Dates 10/04/18 - 12/22/18 Insurance Information [employer] $40 co-pay Setting Treatment Setting Outpatient Care Visit Type Note Type Progress Note Next Note Type Next Note Type Treatment Note General Information General Information This 78-yr-old male was diagnosed with Parkinson's disease ~2 yrs ago. He developed shuffling gait ~5 yrs ago and has experienced cognitive changes since diagnosis. He was seen for neuropsychomitric testing in March 2018 and diagnosed with mild neuro cognitive disorder. The pt continues with occasional balance and visuospatial processing problems and recently completed LSVT-Big with Physical Therapy 1 yr ago and continues with PT 1x/wk. He is interested in LSVT-Loud to improve voice/vocal loudess, as his voice has gotten softer , which is of particular impact on his . Pt denied tremor and swallow difficulties, although he reported a loss of smell and taste, which impacts his interest in food and has lessened his consumption. He does still drive limited distances and not on freeway. The pt has an extended family history of Parkinson's disease , including a brother who developed PD in his 40s and in his 60s; a sister with PD and significant dementia; a sister who was told she had PD and is now in a wheelchair, although the diagnosis is not certain. This obviously increases the pt's concern about his own developing symptoms. He also reported a brother, sister and 2 cousins who have been diagnosed with [place] Syndrome, which may be related to toxic environmental exposures. Finally, the pt has a pacemaker and is on blood thinners. He has concerns of falling, secondary to balance issues, and of potentially hitting his head and developing bleeding in his brain. He wears a helmet when engaged in any physical activity in which he may experience a fall (e.g., bike riding, walking outdoors, etc. ). His concern is exaccerbated by having had a sister who fell and from a brain hemorrhage. Subjective Observations/Patient Presentation The pt arrived on time. No new complaints. Chief Complaint(s) Voice Additional Areas of Concern Cognition - STM Rehab Expectation/Goals: Patient Goals Increase vocal loudness to be heard by others, sandra Objective Short Term Goals 1. Pt will sustain vowel phonation for 30 sec at 75 dB or greater across 3 trials to demonstrate consistent breath support for speech and improve vocal quality/stability. GOAL MET 2. Pt perform pitch glide exercises at avg of 65 dB or greater with min cues to increase pitch range and vocal stability at various pitches. GOAL MET 3. Pt will read Functional Phrases at avg of 70 dB or greater across 10 trials to increase speech intelligibility and promote carryover of vocal loudness into her functional environment. GOAL MET 4. Pt will read words and sentences with avg of 70 dB or greater with 90% accuracy and min cues to increase speech intelligibility. GOAL MET NEW GOAL: Pt will read paragraphs with avg of 70 dB or greater with 90% accuracy and min cues to increase speech intelligibility. 5. Pt will maintain loudness levels between 60-65 dB in off -the-cuff remarks between structured tasks with min cues to increase speech intelligibility and promote carryover of adequate loudness in spontaneous conversation. GOAL MET NEW GOAL: Pt will maintain loudness levels with avg of 72 dB or greater in myr-hpu-dikt remarks between structured tasks with min cues to increase speech intelligibility and promote carryover of adequate loudness in spontaneous conversation. [facility] Goals 1. Pt will produce prosodic features WFL in spontaneous conversation in 80% of opportunities to increase his ability to communicate ideas, opinions, and wants/needs. 2. Pt will produce vocal loudness in conversation WNL ( 65-75 dB) in 80% of opportunities to increase speech intelligibility in a variety of settings and with a variety of conversation partners. 3. Pt will report no more than mild impact of voice as measured by VHI (total score if patient perceptual rating). 4. Pt will exhibit vocal quality WNL as measured by CAPE-V (clinician perceptual rating). Treatment Activities Pt completed sustained phonation and pitch glides with intermittent diplophonia, self-monitored and self- correction attempted in 90% of occurrences, indicating improved awareness and control of breath support and laryngeal tension. Upon initiation of speech tasks, the pt exhibited and c/o increased hoarseness of voice. Facilitated pt production of forward focus exercises, extended /m/ tasks to sentence My mama makes muffins inially in chant, then progressing to speech intonation. Pt produced with clear voicing with exception of final word, consistently, which was perceived by SALES MANAGEMENT INTERN to represent glottal keen. Educated pt in glottal keen and trained in discrimination of clear vs glottal keen vocal quality and lifting technique to reduce/eliminate glottal keen. The pt demonstrated ability to refrain from glottal keen in ~ 75% of opportunities while reading Functional Phrases. Pt completed LSVT-Loud exercises: Sustained Phonation: MPT = 48 sec, avg loundess 76.9 dB, min verbal prompts. Pitch Range: 106-307 Hz. Avg loudness of Lows 79.8 dB; Highs 80 dB. Functional Phrases: Read with avg loudness of 73 dB Paragraphs: Read with avg loudness of 73 dB Conversation: Avg 72.3 dB mod prompts Skilled feedback provided. Assessment Patient Response to Treatment Good Rehab Potential Good Impairments Identified Cognitive-Linguistic Skills Memory - Short Term Parkinson's Disease Vocal Quality Assessment of Improvement Pt demonstrates improved self- awareness of vocal quality and ability to control diplophonia via breath support and laryngeal relaxation. Initiated education and training in controling glottal keen in response to pt questions/concerns in order to improve vocal quality in speech. The pt was responsive and exhibited initial understanding; needs reinforcement. He completed LSVT-Loud tasks with consistent loudness, meeting targets of structured tasks and demonstrating improved loudness levels in conversation with moderate v/v cues. Over the course of treatment, the pt has exhibited increasing commitment to the LSVT-Loud program and HEP, as demonstrated by improved HEP compliance and self-monitoring /correcting demonstrated in sessions. He has demonstrated improved awareness and control of vocal quality via breath support and laryngeal relaxation techniques. He reports reduced requests from others to repeat himself in conversation. He is meeting weekly goals and progressing nicely with treatment. Continue tx per LSVT-Loud protocol. Reviewed with Patient Goals Progress Being Made Home Exercise Program Patient/Caregiver Understanding Excellent Plan Comment 6 sessions in 2 wks Length of Session 60 Minutes Therapeutic Contents Client Education Cognitive-Linguistic Training Home Exercise Program Voice Training Provided Patient/Caregiver Instruction Home Exercise Program Plan of Care Questions/Concerns Therapy Recommendations Continue with Current Program
--- NOTE | 2018-11-03 10:46 | ST.OPTN ---
Care Team Visit Care Team Role Provider Type Carisa Hoffmann PA-C Primary Care Provider Advanced Latex Dipper Address: [address] [place] [address], [id number] Natalia Awad Attending Provider Non-Staff Address: [address] [place] [address], [id number] GENERATOR WORKER Treatment Note GENERATOR WORKER Treatment Note Start: 10/04/18 16:57 Freq: Status: Active Protocol: Document 11/03/18 10:12 ALEXANDRA (Rec: 11/03/18 10:46 ALEXANDRA [id number]) Speech Pathology Treatment Note Session Time Visit Start Time 08:30 Visit Stop Time 09:30 Total Visit Minutes 60 Visit Information Visit Number 04/01 Plan of Care Dates 10/04/18 - 12/22/18 Insurance Information [employer] $40 co-pay Setting Treatment Setting Outpatient Care Visit Type Note Type Progress Note Next Note Type Next Note Type Treatment Note General Information General Information This 78-yr-old male was diagnosed with Parkinson's disease ~2 yrs ago. He developed shuffling gait ~5 yrs ago and has experienced cognitive changes since diagnosis. He was seen for neuropsychomitric testing in March 2018 and diagnosed with mild neuro cognitive disorder. The pt continues with occasional balance and visuospatial processing problems and recently completed LSVT-Big with Physical Therapy 1 yr ago and continues with PT 1x/wk. He is interested in LSVT-Loud to improve voice/vocal loudess, as his voice has gotten softer , which is of particular impact on his . Pt denied tremor and swallow difficulties, although he reported a loss of smell and taste, which impacts his interest in food and has lessened his consumption. He does still drive limited distances and not on freeway. The pt has an extended family history of Parkinson's disease , including a brother who developed PD in his 40s and in his 60s; a sister with PD and significant dementia; a sister who was told she had PD and is now in a wheelchair, although the diagnosis is not certain. This obviously increases the pt's concern about his own developing symptoms. He also reported a brother, sister and 2 cousins who have been diagnosed with [place] Syndrome, which may be related to toxic environmental exposures. Finally, the pt has a pacemaker and is on blood thinners. He has concerns of falling, secondary to balance issues, and of potentially hitting his head and developing bleeding in his brain. He wears a helmet when engaged in any physical activity in which he may experience a fall (e.g., bike riding, walking outdoors, etc. ). His concern is exaccerbated by having had a sister who fell and from a brain hemorrhage. Subjective Observations/Patient Presentation The pt arrived on time. No new complaints. Chief Complaint(s) Voice Additional Areas of Concern Cognition - STM Rehab Expectation/Goals: Patient Goals Increase vocal loudness to be heard by others, sandra Objective Short Term Goals 1. Pt will read paragraphs with avg of 70 dB or greater with 90% accuracy and min cues to increase speech intelligibility. 5. Pt will maintain loudness levels with avg of 72 dB or greater in [id number] remarks between structured tasks with min cues to increase speech intelligibility and promote carryover of adequate loudness in spontaneous conversation. Nursing Home Goals 1. Pt will produce prosodic features WFL in spontaneous conversation in 80% of opportunities to increase his ability to communicate ideas, opinions, and wants/needs. 2. Pt will produce vocal loudness in conversation WNL ( 65-75 dB) in 80% of opportunities to increase speech intelligibility in a variety of settings and with a variety of conversation partners. 3. Pt will report no more than mild impact of voice as measured by VHI (total score if patient perceptual rating). 4. Pt will exhibit vocal quality WNL as measured by CAPE-V (clinician perceptual rating). Treatment Activities Pt performed fwd resonance warm-up exercises with diplophonia present x1 episode , which the pt self-corrected; then completed LSVT-Loud exercises: Sustained Phonation: MPT = 47 sec, avg loundess 79.1 dB, min verbal prompts. Pitch Range: 91-320 Hz. Avg loudness of Lows 80.6 dB; Highs 81.9 dB. Functional Phrases: Read with avg loudness of 77 dB Paragraphs: Read with avg loudness of 75 dB Conversation: Avg 70 dB mod prompts Skilled feedback provided. Assessment Patient Response to Treatment Good Rehab Potential Good Impairments Identified Cognitive-Linguistic Skills Memory - Short Term Parkinson's Disease Vocal Quality Assessment of Improvement Pt demonstrates improved self- awareness of vocal quality and ability to control diplophonia via breath support and laryngeal relaxation. He completed LSVT-Loud tasks with consistent loudness, meeting targets of structured tasks and demonstrating improved loudness levels in conversation with moderate v/v cues and increased self- monitoring and correcting. Continue tx per LSVT-Loud protocol. Reviewed with Patient Goals Progress Being Made Home Exercise Program Patient/Caregiver Understanding Excellent Plan Comment 6 sessions in 2 wks Length of Session 60 Minutes Therapeutic Contents Client Education Cognitive-Linguistic Training Home Exercise Program Voice Training Provided Patient/Caregiver Instruction Home Exercise Program Plan of Care Questions/Concerns Therapy Recommendations Continue with Current Program
--- NOTE | 2018-11-08 11:02 | ST.OPTN ---
Care Team Visit Care Team Role Provider Type Carisa Hoffmann PA-C Primary Care Provider Advanced Filament Tester Address: [address] [place] [address], [id number] Natalia Awad Attending Provider Non-Staff Address: [address] [place] [address], [id number] CLIENT SERVICES VICE PRESIDENT Treatment Note CLIENT SERVICES VICE PRESIDENT Treatment Note Start: 10/04/18 16:57 Freq: Status: Active Protocol: Document 11/08/18 10:52 ALEXANDRA (Rec: 11/08/18 11:02 ALEXANDRA [email or web address]) Speech Pathology Treatment Note Session Time Visit Start Time 08:30 Visit Stop Time 09:30 Total Visit Minutes 60 Visit Information Visit Number 05/02 Plan of Care Dates 10/04/18 - 12/22/18 Insurance Information [employer] $40 co-pay Setting Treatment Setting Outpatient Care Visit Type Note Type Treatment Note Next Note Type Next Note Type Treatment Note General Information General Information This 78-yr-old male was diagnosed with Parkinson's disease ~2 yrs ago. He developed shuffling gait ~5 yrs ago and has experienced cognitive changes since diagnosis. He was seen for neuropsychomitric testing in March 2018 and diagnosed with mild neuro cognitive disorder. The pt continues with occasional balance and visuospatial processing problems and recently completed LSVT-Big with Physical Therapy 1 yr ago and continues with PT 1x/wk. He is interested in LSVT-Loud to improve voice/vocal loudess, as his voice has gotten softer , which is of particular impact on his . Pt denied tremor and swallow difficulties, although he reported a loss of smell and taste, which impacts his interest in food and has lessened his consumption. He does still drive limited distances and not on freeway. The pt has an extended family history of Parkinson's disease , including a brother who developed PD in his 40s and in his 60s; a sister with PD and significant dementia; a sister who was told she had PD and is now in a wheelchair, although the diagnosis is not certain. This obviously increases the pt's concern about his own developing symptoms. He also reported a brother, sister and 2 cousins who have been diagnosed with [place] Syndrome, which may be related to toxic environmental exposures. Finally, the pt has a pacemaker and is on blood thinners. He has concerns of falling, secondary to balance issues, and of potentially hitting his head and developing bleeding in his brain. He wears a helmet when engaged in any physical activity in which he may experience a fall (e.g., bike riding, walking outdoors, etc. ). His concern is exaccerbated by having had a sister who fell and from a brain hemorrhage. Subjective Observations/Patient Presentation The pt arrived on time. No new complaints. Completed HEP over weekend as instructed. Reported noticing improvement in loudness levels in functional conversation and fewer requests for repetition from his . Chief Complaint(s) Voice Additional Areas of Concern Cognition - STM Rehab Expectation/Goals: Patient Goals Increase vocal loudness to be heard by others, sandra Objective Short Term Goals 1. Pt will read paragraphs with avg of 70 dB or greater with 90% accuracy and min cues to increase speech intelligibility. 5. Pt will maintain loudness levels with avg of 72 dB or greater in [id number] remarks between structured tasks with min cues to increase speech intelligibility and promote carryover of adequate loudness in spontaneous conversation. [facility] Goals 1. Pt will produce prosodic features WFL in spontaneous conversation in 80% of opportunities to increase his ability to communicate ideas, opinions, and wants/needs. 2. Pt will produce vocal loudness in conversation WNL ( 65-75 dB) in 80% of opportunities to increase speech intelligibility in a variety of settings and with a variety of conversation partners. 3. Pt will report no more than mild impact of voice as measured by VHI (total score if patient perceptual rating). 4. Pt will exhibit vocal quality WNL as measured by CAPE-V (clinician perceptual rating). Treatment Activities Pt completed LSVT-Loud exercises: Sustained Phonation: MPT = 40. 9 sec, avg loundess 76 dB, min verbal prompts. Pitch Range: 82-276 Hz. Avg loudness of Lows 77.5 dB; Highs 78.2 dB. Functional Phrases: Read with avg loudness of 74 dB [id number] Remarks: 68 dB avg loudness Conversation: Avg 71 dB independently in quiet tx room . Conversation took place in various other public environments around the facility. The pt was 100% intelligible in all settings, including cafeteria with >60 dB background noise. Pt self- monitored and corrected independently. Skilled feedback provided. Assessment Patient Response to Treatment Good Rehab Potential Good Impairments Identified Cognitive-Linguistic Skills Memory - Short Term Parkinson's Disease Vocal Quality Progress Towards Goals Excellent Progress Assessment of Overall Progress Improving Assessment of Improvement Pt demonstrates improved self- awareness of vocal quality and ability to control diplophonia via breath support and laryngeal relaxation. He completed LSVT-Loud tasks with consistent loudness, improved vocal stability, meeting targets of structured tasks. He demonstrated improved loudness levels and 100% intelligibility in conversation in a variety of environmental settings. Improved loudness also noted with [id number] remarks. Continue tx per LSVT-Loud protocol. Reviewed with Patient Goals Progress Being Made Home Exercise Program Patient/Caregiver Understanding Excellent Plan Comment 6 sessions in 2 wks Length of Session 60 Minutes Therapeutic Contents Client Education Cognitive-Linguistic Training Home Exercise Program Voice Training Provided Patient/Caregiver Instruction Home Exercise Program Plan of Care Questions/Concerns Therapy Recommendations Continue with Current Program
--- NOTE | 2018-11-08 17:03 | ST.OPTN ---
Care Team Visit Care Team Role Provider Type Carisa Hoffmann PA-C Primary Care Provider Advanced Worm Grower Address: [address] [place] [address], [id number] Natalia Awad Attending Provider Non-Staff Address: [address] [place] [address], [id number] WEB USER EXPERIENCE STRATEGIST Treatment Note WEB USER EXPERIENCE STRATEGIST Treatment Note Start: 10/04/18 16:57 Freq: Status: Active Protocol: Document 11/08/18 10:52 ALEXANDRA (Rec: 11/08/18 11:02 ALEXANDRA [email or web address]) Speech Pathology Treatment Note Session Time Visit Start Time 08:30 Visit Stop Time 09:30 Total Visit Minutes 60 Visit Information Visit Number 05/30 Plan of Care Dates 10/04/18 - 12/22/18 Insurance Information [employer] $40 co-pay Setting Treatment Setting Outpatient Care Visit Type Note Type Treatment Note Next Note Type Next Note Type Treatment Note General Information General Information This 78-yr-old male was diagnosed with Parkinson's disease ~2 yrs ago. He developed shuffling gait ~5 yrs ago and has experienced cognitive changes since diagnosis. He was seen for neuropsychomitric testing in March 2018 and diagnosed with mild neuro cognitive disorder. The pt continues with occasional balance and visuospatial processing problems and recently completed LSVT-Big with Physical Therapy 1 yr ago and continues with PT 1x/wk. He is interested in LSVT-Loud to improve voice/vocal loudess, as his voice has gotten softer , which is of particular impact on his . Pt denied tremor and swallow difficulties, although he reported a loss of smell and taste, which impacts his interest in food and has lessened his consumption. He does still drive limited distances and not on freeway. The pt has an extended family history of Parkinson's disease , including a brother who developed PD in his 40s and in his 60s; a sister with PD and significant dementia; a sister who was told she had PD and is now in a wheelchair, although the diagnosis is not certain. This obviously increases the pt's concern about his own developing symptoms. He also reported a brother, sister and 2 cousins who have been diagnosed with [place] Syndrome, which may be related to toxic environmental exposures. Finally, the pt has a pacemaker and is on blood thinners. He has concerns of falling, secondary to balance issues, and of potentially hitting his head and developing bleeding in his brain. He wears a helmet when engaged in any physical activity in which he may experience a fall (e.g., bike riding, walking outdoors, etc. ). His concern is exaccerbated by having had a sister who fell and from a brain hemorrhage. Subjective Observations/Patient Presentation The pt arrived on time. No new complaints. Completed HEP over weekend as instructed. Reported noticing improvement in loudness levels in functional conversation and fewer requests for repetition from his . Chief Complaint(s) Voice Additional Areas of Concern Cognition - STM Rehab Expectation/Goals: Patient Goals Increase vocal loudness to be heard by others, sandra Objective Short Term Goals 1. Pt will read paragraphs with avg of 70 dB or greater with 90% accuracy and min cues to increase speech intelligibility. 5. Pt will maintain loudness levels with avg of 72 dB or greater in ded-xgc-zney remarks between structured tasks with min cues to increase speech intelligibility and promote carryover of adequate loudness in spontaneous conversation. Fpc Goals 1. Pt will produce prosodic features WFL in spontaneous conversation in 80% of opportunities to increase his ability to communicate ideas, opinions, and wants/needs. 2. Pt will produce vocal loudness in conversation WNL ( 65-75 dB) in 80% of opportunities to increase speech intelligibility in a variety of settings and with a variety of conversation partners. 3. Pt will report no more than mild impact of voice as measured by VHI (total score if patient perceptual rating). 4. Pt will exhibit vocal quality WNL as measured by CAPE-V (clinician perceptual rating). Treatment Activities Pt completed LSVT-Loud exercises: Sustained Phonation: MPT = 40. 9 sec, avg loundess 76 dB, min verbal prompts. Pitch Range: 82-276 Hz. Avg loudness of Lows 77.5 dB; Highs 78.2 dB. Functional Phrases: Read with avg loudness of 74 dB [id number]-[id number] Remarks: 68 dB avg loudness Conversation: Avg 71 dB independently in quiet tx room . Conversation took place in various other public environments around the facility. The pt was 100% intelligible in all settings, including cafeteria with >60 dB background noise. Pt self- monitored and corrected independently. Skilled feedback provided. Assessment Patient Response to Treatment Good Rehab Potential Good Impairments Identified Cognitive-Linguistic Skills Memory - Short Term Parkinson's Disease Vocal Quality Progress Towards Goals Excellent Progress Assessment of Overall Progress Improving Assessment of Improvement Pt demonstrates improved self- awareness of vocal quality and ability to control diplophonia via breath support and laryngeal relaxation. He completed LSVT-Loud tasks with consistent loudness, improved vocal stability, meeting targets of structured tasks. He demonstrated improved loudness levels and 100% intelligibility in conversation in a variety of environmental settings. Improved loudness also noted with hmk-stm-eydy remarks. Continue tx per LSVT-Loud protocol. Reviewed with Patient Goals Progress Being Made Home Exercise Program Patient/Caregiver Understanding Excellent Plan Comment 6 sessions in 2 wks Length of Session 60 Minutes Therapeutic Contents Client Education Cognitive-Linguistic Training Home Exercise Program Voice Training Provided Patient/Caregiver Instruction Home Exercise Program Plan of Care Questions/Concerns Therapy Recommendations Continue with Current Program
--- NOTE | 2018-11-09 11:04 | ST.OPTN ---
Care Team Visit Care Team Role Provider Type Carisa Hoffmann PA-C Primary Care Provider Advanced Director Emergency Address: [address] [place] [address], [id number] Natalia Awad Attending Provider Non-Staff Address: [address] [place] [address], [id number] SEAMER ELASTIC BAND Treatment Note SEAMER ELASTIC BAND Treatment Note Start: 10/04/18 16:57 Freq: Status: Active Protocol: Document 11/09/18 10:54 ALEXANDRA (Rec: 11/09/18 11:04 ALEXANDRA [email or web address]) Speech Pathology Treatment Note Session Time Visit Start Time 08:30 Visit Stop Time 09:30 Total Visit Minutes 60 Visit Information Visit Number 06/30 Plan of Care Dates 10/04/18 - 12/22/18 Insurance Information [employer] $40 co-pay Setting Treatment Setting Outpatient Care Visit Type Note Type Treatment Note Next Note Type Next Note Type Treatment Note General Information General Information This 78-yr-old male was diagnosed with Parkinson's disease ~2 yrs ago. He developed shuffling gait ~5 yrs ago and has experienced cognitive changes since diagnosis. He was seen for neuropsychomitric testing in March 2018 and diagnosed with mild neuro cognitive disorder. The pt continues with occasional balance and visuospatial processing problems and recently completed LSVT-Big with Physical Therapy 1 yr ago and continues with PT 1x/wk. He is interested in LSVT-Loud to improve voice/vocal loudess, as his voice has gotten softer , which is of particular impact on his . Pt denied tremor and swallow difficulties, although he reported a loss of smell and taste, which impacts his interest in food and has lessened his consumption. He does still drive limited distances and not on freeway. The pt has an extended family history of Parkinson's disease , including a brother who developed PD in his 40s and in his 60s; a sister with PD and significant dementia; a sister who was told she had PD and is now in a wheelchair, although the diagnosis is not certain. This obviously increases the pt's concern about his own developing symptoms. He also reported a brother, sister and 2 cousins who have been diagnosed with [place] Syndrome, which may be related to toxic environmental exposures. Finally, the pt has a pacemaker and is on blood thinners. He has concerns of falling, secondary to balance issues, and of potentially hitting his head and developing bleeding in his brain. He wears a helmet when engaged in any physical activity in which he may experience a fall (e.g., bike riding, walking outdoors, etc. ). His concern is exaccerbated by having had a sister who fell and from a brain hemorrhage. Subjective Observations/Patient Presentation The pt arrived on time. No new complaints. Pt informed , Sonia, would like to attend tomorrow's session. SEAMER ELASTIC BAND agreeable to this. Chief Complaint(s) Voice Additional Areas of Concern Cognition - STM Rehab Expectation/Goals: Patient Goals Increase vocal loudness to be heard by others, sandra Objective Short Term Goals 1. Pt will read paragraphs with avg of 70 dB or greater with 90% accuracy and min cues to increase speech intelligibility. GOAL MET] 5. Pt will maintain loudness levels with avg of 72 dB or greater in [id number]-tdh-hxcp remarks between structured tasks with min cues to increase speech intelligibility and promote carryover of adequate loudness in spontaneous conversation. Intermediate Goals 1. Pt will produce prosodic features WFL in spontaneous conversation in 80% of opportunities to increase his ability to communicate ideas, opinions, and wants/needs. 2. Pt will produce vocal loudness in conversation WNL ( 65-75 dB) in 80% of opportunities to increase speech intelligibility in a variety of settings and with a variety of conversation partners. 3. Pt will report no more than mild impact of voice as measured by VHI (total score if patient perceptual rating). 4. Pt will exhibit vocal quality WNL as measured by CAPE-V (clinician perceptual rating). Treatment Activities Pt completed LSVT-Loud exercises: Sustained Phonation: MPT = 43 sec, avg loundess 79.1 dB independently. Pitch Range: 101-309 Hz. Avg loudness of Lows 78.8 dB; Highs 77.8 dB. Functional Phrases: Read with avg loudness of 75.7 dB Qnu-gyf-gjie Remarks: not measured Conversation: Avg 65 dB independently in quiet tx room . Conversation took place in various other public environments around the facility. The pt was 100% intelligible in all settings, including cafeteria with ~69 dB background noise; however, increased attention/effort from conversation partner required in latter environment . Reduced self-monitoring and correcting noted. Pt informed of concern of conversation being overheard by others in this public setting. Skilled feedback provided. Assessment Patient Response to Treatment Good Rehab Potential Good Impairments Identified Cognitive-Linguistic Skills Memory - Short Term Parkinson's Disease Vocal Quality Progress Towards Goals Excellent Progress Assessment of Overall Progress Improving Assessment of Improvement Pt continues to make progress. Mildly reduced vocal loudness in conversation today, including in public environment with extensive background noise, requiring increased effort from conversation partner. Pt remained 100% intelligible, however, and concern of being overheard by others appears to have impacted his choice in controling loudness levels. Continue tx per LSVT-Loud protocol. Reviewed with Patient Goals Progress Being Made Home Exercise Program Patient/Caregiver Understanding Excellent Plan Comment 6 sessions in 2 wks Length of Session 60 Minutes Therapeutic Contents Client Education Cognitive-Linguistic Training Home Exercise Program Voice Training Provided Patient/Caregiver Instruction Home Exercise Program Plan of Care Questions/Concerns Therapy Recommendations Continue with Current Program
--- NOTE | 2018-11-10 16:34 | ST.OPTN ---
Care Team Visit Care Team Role Provider Type Carisa Hoffmann PA-C Primary Care Provider Advanced Benefits Specialist Address: [address] [place] [address], [address], [place], [address] Natalia Awad Attending Provider Non-Staff Address: [address] [place] [address], [place], [address] CHIN STRAP SEWER Treatment Note CHIN STRAP SEWER Treatment Note Start: 10/04/18 16:57 Freq: Status: Active Protocol: Document 11/10/18 16:22 ALEXANDRA (Rec: 11/10/18 16:34 ALEXANDRA [email or web address]) Speech Pathology Treatment Note Session Time Visit Start Time 08:30 Visit Stop Time 09:30 Total Visit Minutes 60 Visit Information Visit Number 07/30 Plan of Care Dates 10/04/18 - 12/22/18 Insurance Information [employer] $40 co-pay Setting Treatment Setting Outpatient Care Visit Type Note Type Treatment Note Next Note Type Next Note Type Treatment Note General Information General Information This 78-yr-old male was diagnosed with Parkinson's disease ~2 yrs ago. He developed shuffling gait ~5 yrs ago and has experienced cognitive changes since diagnosis. He was seen for neuropsychomitric testing in March 2018 and diagnosed with mild neuro cognitive disorder. The pt continues with occasional balance and visuospatial processing problems and recently completed LSVT-Big with Physical Therapy 1 yr ago and continues with PT 1x/wk. He is interested in LSVT-Loud to improve voice/vocal loudess, as his voice has gotten softer , which is of particular impact on his . Pt denied tremor and swallow difficulties, although he reported a loss of smell and taste, which impacts his interest in food and has lessened his consumption. He does still drive limited distances and not on freeway. The pt has an extended family history of Parkinson's disease , including a brother who developed PD in his 40s and in his 60s; a sister with PD and significant dementia; a sister who was told she had PD and is now in a wheelchair, although the diagnosis is not certain. This obviously increases the pt's concern about his own developing symptoms. He also reported a brother, sister and 2 cousins who have been diagnosed with [place] Syndrome, which may be related to toxic environmental exposures. Finally, the pt has a pacemaker and is on blood thinners. He has concerns of falling, secondary to balance issues, and of potentially hitting his head and developing bleeding in his brain. He wears a helmet when engaged in any physical activity in which he may experience a fall (e.g., bike riding, walking outdoors, etc. ). His concern is exaccerbated by having had a sister who fell and from a brain hemorrhage. Subjective Observations/Patient Presentation The pt arrived on time with his , Sonia, who was present throughout the session . The pt had no new complaints . Pt's reported observing improved loudness levels from the pt. Chief Complaint(s) Voice Additional Areas of Concern Cognition - STM Rehab Expectation/Goals: Patient Goals Increase vocal loudness to be heard by others, sandra Objective Short Term Goals 1. Pt will read paragraphs with avg of 70 dB or greater with 90% accuracy and min cues to increase speech intelligibility. GOAL MET] 5. Pt will maintain loudness levels with avg of 72 dB or greater in [id number]-ugc-utuz remarks between structured tasks with min cues to increase speech intelligibility and promote carryover of adequate loudness in spontaneous conversation. Correction Goals 1. Pt will produce prosodic features WFL in spontaneous conversation in 80% of opportunities to increase his ability to communicate ideas, opinions, and wants/needs. 2. Pt will produce vocal loudness in conversation WNL ( 65-75 dB) in 80% of opportunities to increase speech intelligibility in a variety of settings and with a variety of conversation partners. 3. Pt will report no more than mild impact of voice as measured by VHI (total score if patient perceptual rating). 4. Pt will exhibit vocal quality WNL as measured by CAPE-V (clinician perceptual rating). Treatment Activities Pt completed LSVT-Loud exercises: Sustained Phonation: MPT = 44. 8 sec, avg loundess 77.8 dB independently. Pitch Range: 89-336 Hz. Avg loudness of Lows 76.5 dB; Highs 79.5 dB. Functional Phrases: Read with avg loudness of 75 dB Conversation: Avg 64.5 dB independently in quiet tx room . Conversation took place in various other public environments around the facility. The pt was 100% intelligible in all settings to both this CHIN STRAP SEWER and pt's , including in cafeteria with ~69 dB background noise. Skilled feedback provided. Education also provided to pt/ spouse RE ST services targeting cognitive communication skills, particularly memory, as the pt has frequently expressed concern about increasing memory difficulties. Both the pt and his expressed interest in this. Will discuss further at tomorrow's session . Assessment Patient Response to Treatment Good Rehab Potential Good Impairments Identified Cognitive-Linguistic Skills Memory - Short Term Parkinson's Disease Vocal Quality Progress Towards Goals Excellent Progress Assessment of Overall Progress Improving Assessment of Improvement Pt exhibited consistent vocal loudness in structured tasks. Control of vocal quality continues to improve. The pt is adapting his loudness levels appropriately in different environments. Although 100% intelligible in a quiet environment, he tends to talk below target levels with some frequency. His expressed being able to hear him and asked for no repetitions from him throughout the session, including in a loud environment. Given the pt's complaints of memory deficits, which were confirmed by his , ongoing ST services targeting cognitive communication skills may be warranted. Continue tx per LSVT-Loud protocol; discuss recommendation for cog comm therapy. Reviewed with Patient Goals Progress Being Made Home Exercise Program Patient/Caregiver Understanding Excellent Plan Comment 6 sessions in 2 wks Length of Session 60 Minutes Therapeutic Contents Client Education Cognitive-Linguistic Training Home Exercise Program Voice Training Provided Patient/Caregiver Instruction Home Exercise Program Plan of Care Questions/Concerns Therapy Recommendations Continue with Current Program
--- NOTE | 2018-11-11 10:28 | ST.OPTN ---
Care Team Visit Care Team Role Provider Type Carisa Hoffmann PA-C Primary Care Provider Advanced Reinforced Ironworker Address: [address] [place] [address], [address], [place], [address] Natalia Awad Attending Provider Non-Staff Address: [address] [place] [address], [place], [address] DISK OPERATOR Treatment Note DISK OPERATOR Treatment Note Start: 10/04/18 16:57 Freq: Status: Active Protocol: Document 11/11/18 09:41 ALEXANDRA (Rec: 11/11/18 10:26 ALEXANDRA [id number]) Speech Pathology Treatment Note Session Time Visit Start Time 08:30 Visit Stop Time 09:35 Total Visit Minutes 65 Visit Information Visit Number 08/30 Plan of Care Dates 10/04/18 - 12/22/18 Insurance Information [employer] $40 co-pay Setting Treatment Setting Outpatient Care Visit Type Note Type Progress Note Next Note Type Next Note Type Treatment Note General Information General Information This 78-yr-old male was diagnosed with Parkinson's disease ~2 yrs ago. He developed shuffling gait ~5 yrs ago and has experienced cognitive changes since diagnosis. He was seen for neuropsychomitric testing in March 2018 and diagnosed with mild neuro cognitive disorder. The pt continues with occasional balance and visuospatial processing problems and recently completed LSVT-Big with Physical Therapy 1 yr ago and continues with PT 1x/wk. He is interested in LSVT-Loud to improve voice/vocal loudess, as his voice has gotten softer , which is of particular impact on his . Pt denied tremor and swallow difficulties, although he reported a loss of smell and taste, which impacts his interest in food and has lessened his consumption. He does still drive limited distances and not on freeway. The pt has an extended family history of Parkinson's disease , including a brother who developed PD in his 40s and in his 60s; a sister with PD and significant dementia; a sister who was told she had PD and is now in a wheelchair, although the diagnosis is not certain. This obviously increases the pt's concern about his own developing symptoms. He also reported a brother, sister and 2 cousins who have been diagnosed with [place] Syndrome, which may be related to toxic environmental exposures. Finally, the pt has a pacemaker and is on blood thinners. He has concerns of falling, secondary to balance issues, and of potentially hitting his head and developing bleeding in his brain. He wears a helmet when engaged in any physical activity in which he may experience a fall (e.g., bike riding, walking outdoors, etc. ). His concern is exacerbated by having had a sister who fell and from a brain hemorrhage. Subjective Observations/Patient Presentation The pt arrived on time. No new voice complaints. In reflection of the LSVT-Loud treatment, he stated, This has been fun. I think it's help been helpful. I was skeptical at the beginning. He did express a desire to continue Speech Therapy targeting cognitive communication, specifically memory skills. Chief Complaint(s) Voice Additional Areas of Concern Improve short-term and working memory Rehab Expectation/Goals: Patient Goals Increase vocal loudness to be heard by others, sandra ; Improve memory Objective Short Term Goals 1. Pt will read paragraphs with avg of 70 dB or greater with 90% accuracy and min cues to increase speech intelligibility. GOAL MET 5. Pt will maintain loudness levels with avg of 72 dB or greater in [id number] remarks between structured tasks with min cues to increase speech intelligibility and promote carryover of adequate loudness in spontaneous conversation. GOAL NOT MET; INCONSISTENT PROGRESS Correction Goals 1. Pt will produce prosodic features WFL in spontaneous conversation in 80% of opportunities to increase his ability to communicate ideas, opinions, and wants/needs. GOAL MET 2. Pt will produce vocal loudness in conversation WNL ( 65-75 dB) in 80% of opportunities to increase speech intelligibility in a variety of settings and with a variety of conversation partners. GOAL MET 3. Pt will report no more than mild impact of voice as measured by VHI (total score if patient perceptual rating). GOAL NOT MET 4. Pt will exhibit vocal quality WNL as measured by CAPE-V (clinician perceptual rating).GOAL NOT MET Treatment Activities Pt completed LSVT-Loud exercises: Sustained Phonation: MPT = 44. 32 sec, avg loundess 79 dB independently. Pitch Range: 95-318 Hz. Avg loudness of Lows 74.6 dB; Highs 78.8 dB. Functional Phrases: Read with avg loudness of 74.3 dB Conversation: Avg 67 dB independently in quiet tx room . Pt completed VHI perceptual rating form: Overall Mod- Severe (58; increased from 56 at SOC); Functional Subscale 23 (severe; decreased from 24 at SOC); Physical Subscale 17 (moderate; unchanged from SOC) ; Emotional Subscale 18 (mod- severe; increased from 15 at SOC). CAPE-V Perceptual rating form completed by DISK OPERATOR: Overall Mild Severity (21%; improved from 55% at SOC); Roughness 13% ( mild; improved from 50% at SOC ; Strain 2% WNL (0% [WNL] at SOC); Pitch 0% WNL (unchanged from SOC); Loudness 14% (mild- mod; improved from 39% at SOC) ; Other features: Diplophonia and keen occasionally observed but improved significantly ( particularly diplophonia) since SOC. Vocal Stability: Fundamental Frequency (141 Hz), Jitter (0. 18%), and Shimmer (1.72%) all WNL. Skilled feedback provided RE progress over course of treatment and recommendations for HEP and continued efforts to maintain or even improve progress made to date. Pt verbalized understanding. Education also provided to pt RE ST services targeting cognitive communication skills , particularly memory, as the pt has frequently expressed concern about increasing memory difficulties. The pt requested continuing Speech Therapy targeting this skill, and DISK OPERATOR is in agreement. Will perform evaluation at next session. Assessment Patient Response to Treatment Excellent Rehab Potential Good Impairments Identified Cognitive-Linguistic Skills Memory - Short Term Parkinson's Disease Vocal Quality Progress Towards Goals Excellent Progress Assessment of Overall Progress Improving Assessment of Improvement The pt has successfully completed LSVT-Loud treatment. Over the course of treatment, the pt has made significant improvements in awareness of vocal loudness and quality in relation to various settings, tasks, and conversation partners. He has met all goals within structured tasks. Inconsistent production of conversational loudness levels has been observed, and while not meeting the goal of a consistent average of 72 dB in conversation, the pt has improved levels to WNL (65-75 dB) in 80% or more of opportunities. He has demonstrated excellent improvement in reducing strain and subsequent diplophonia in voice during structured tasks, as demonstrated by CAPE-V, jitter and shimmer results, which is important for overall VF health. Although positive objective data in VHI scores (pt's perceptual evaluation)have not been achieved, it is not uncommon in this DISK OPERATOR's clinical experience for such results to reflect positive increased awareness and understanding of effort required to produced voicing WNL, as well as the impact of voice on others and functional communication tasks . Nevertheless, scores of moderate to severe indicate ongoing significant impact of the pt's voice on aspects of his life. Follow-up voice therapy in 6 months is recommended for this patient. The pt has been a pleasure to work with. It has been encouraging to observe him become more invested in the treatment program over the course of 4 weeks and make subsequent improvements as a result of his hard work. Plan to continue working with this pt in areas of short-term and working memory skills. See change in treatment frequency and duration below. Reviewed with Patient Goals Progress Being Made Home Exercise Program Patient/Caregiver Understanding Excellent Plan Amount of Therapy Recommended 1-2 Months Frequency of Treatment Once a Week Length of Session 45 Minutes Treatment Emphasis Next Session Cognitive communication skills ; STM Therapeutic Contents Client Education Cognitive-Linguistic Training Home Exercise Program Voice Training Provided Patient/Caregiver Instruction Home Exercise Program Plan of Care Questions/Concerns Therapy Recommendations Decrease Frequency of Rehabilitation Comment LSVT-Loud completed. Updated POC to include cognitive communication.
--- NOTE | 2018-11-16 16:01 | ST.OPTN ---
Care Team Visit Care Team Role Provider Type Carisa Hoffmann PA-C Primary Care Provider Advanced Dairy Helper Address: [address] [place] [address], [address], [place], [address] Natalia Awad Attending Provider Non-Staff Address: [address] [place] [address], [place], [address] QUALITATIVE EXECUTIVE RESEARCHER Treatment Note QUALITATIVE EXECUTIVE RESEARCHER Treatment Note Start: 10/04/18 16:57 Freq: Status: Active Protocol: Document 11/16/18 14:29 ALEXANDRA (Rec: 11/16/18 14:36 ALEXANDRA [email or web address]) Speech Pathology Treatment Note Session Time Visit Start Time 09:30 Visit Stop Time 10:18 Total Visit Minutes 48 Visit Information Visit Number 09/29 Plan of Care Dates 10/04/18 - 12/22/18 Insurance Information [facility] $40 co-pay Setting Treatment Setting Outpatient Care Visit Type Note Type Progress Note Next Note Type Next Note Type Treatment Note General Information General Information This 78-yr-old male was diagnosed with Parkinson's disease ~2 yrs ago. He developed shuffling gait ~5 yrs ago and has experienced cognitive changes since diagnosis. He was seen for neuropsychomitric testing in March 2018 and diagnosed with mild neuro cognitive disorder. The pt continues with occasional balance and visuospatial processing problems and recently completed LSVT-Big with Physical Therapy 1 yr ago and continues with PT 1x/wk. The pt has now successfully completed LSVT-Loud to improve voice/vocal loudess, as his voice had gotten softer over time, which had been of particular impact on his . Pt continues to deny tremor and swallow difficulties. He endorses loss of smell and taste, which impacts his interest in food and has lessened his consumption, and both he and his report decline in memory skills. The pt underwent Psychological Testing administered by Dr. Johnson of [facility] on 04/05/18 which indicated no major neurological dysfunction but more likely normal changes consistent with aging. Scores of Low Average or Extremely Low occurred in areas of memory on CLVT, WMS-IV, and CVLT-2 tests. It is possible that some of his scores, while falling within the average range, represent declines from his baseline and this would likely be due to his movement disorder. In his case there is the possiblity of high cognitive reserves obscuring true declines. There are no consistent indications of the frontosubcortical cognitive profile of person with Parkinson's disease or other movement disorders. The pt has an extended family history of Parkinson's disease , including a brother who developed PD in his 40s and in his 60s; a sister with PD and significant dementia; a sister who was told she had PD and is now in a wheelchair, although the diagnosis is not certain. This obviously increases the pt's concern about his own developing symptoms. He also reported a brother, sister and 2 cousins who have been diagnosed with [place] Syndrome, which may be related to toxic environmental exposures. Finally, the pt has a pacemaker and is on blood thinners. He has concerns of falling, secondary to balance issues, and of potentially hitting his head and developing bleeding in his brain. He wears a helmet when engaged in any physical activity in which he may experience a fall (e.g., bike riding, walking outdoors, etc. ). His concern is exaccerbated by having had a sister who fell and from a brain hemorrhage. Subjective Observations/Patient Presentation The pt arrived on time. No new voice complaints. He brought with him a Report of Psychological Testing, findings of which have been documented above. He expressed being most frustrated with changes in ability to recall names, phone numbers, and tracking his place in tasks such as following a recipe. He stated that he often has to think about what day of the week it is, but that this does not concern him as he is retired and refers to his calendar as needed. He also reported reliance on lists, such as grocery or [employer] lists, but this also does not bother him. Chief Complaint(s) Cognitive Voice Additional Areas of Concern Improve short-term and working memory Rehab Expectation/Goals: Patient Goals Increase vocal loudness to be heard by others, sandra ; Improve memory Objective Short Term Goals 1. The pt will identify memory strategies (e.g., visualization techniques, increasing awareness, etc.) in structured tasks to assist in recalling names, lists of up to 5 items, etc., necessary for functional activities. 2. Using memory strategies, the pt will recall names and lists of up to 5 items after a 3-minute or greater delay with 80% accuracy to increase functional memory skills. Prison Goals 1. Pt will maintain loudness levels with avg of 70 dB or greater in spontaneous conversation in 75% of opportunities. 2. Using memory strategies as needed, the pt will demonstrate delayed recall (>5 min) of 7-digit number sequences with 80% accuracy. 3. Given pictures or descriptions of persons in the pt's functional life, he will recall names with 80% accuracy to improve memory skills and maintain relationships. 4. The pt will report memory skills WFL, with use of internal/external strategies as needed. Treatment Activities Administered SLUMS cognitive test. Score: , consistent with mild neurocognitive disorder. Education was provided RE external memory tools. The pt is already effectively employing calendar use and written lists to recall daily appointments/events, grocery lists (for example), and names of people he meets. Skilled feedback was provided. Initiated training of internal strategies by educating pt on importance of attention on memory skills and providing examples of ways in which he can incorporate more senses to increase attention and subsequently memory (e.g., stating targets aloud). Education also provided RE association strategies. The pt was receptive and in agreement with recommendations , which require reinforcement. Assessment Patient Response to Treatment Excellent Rehab Potential Good Impairments Identified Cognitive-Linguistic Skills Memory - Short Term Parkinson's Disease Vocal Quality Progress Towards Goals Excellent Progress Assessment of Overall Progress Improving Assessment of Improvement The pt demonstrates good awareness of deficits and is effectively employing external memory strategies to assist in completing daily tasks. He was receptive to education and initial training. Needs reinforcement. Reviewed with Patient Goals Progress Being Made Home Exercise Program Patient/Caregiver Understanding Excellent Plan Amount of Therapy Recommended 1-2 Months Frequency of Treatment Once a Week Length of Session 45 Minutes Treatment Emphasis Next Session Cognitive communication skills ; STM Therapeutic Contents Client Education Cognitive-Linguistic Training Home Exercise Program Voice Training Provided Patient/Caregiver Instruction Home Exercise Program Plan of Care Questions/Concerns Therapy Recommendations Decrease Frequency of Rehabilitation Other Comment LSVT-Loud completed. Updated POC to include cognitive communication
--- NOTE | 2018-11-24 15:54 | ST.OPTN ---
Visit Care Team Role Provider Type Carisa Hoffmann PA-C Primary Care Provider Advanced Administrative Law Judge Address: [address] [place] [address], [address], [place], [address] Natalia Awad Attending Provider Non-Staff Address: [address] [place] [address], [place], [address] BOOM SUPERVISOR Treatment Note BOOM SUPERVISOR Treatment Note Start: 10/04/18 16:57 Freq: Status: Active Protocol: Document 11/24/18 15:45 ALEXANDRA (Rec: 11/24/18 15:54 ALEXANDRA [id number]) Speech Pathology Treatment Note Session Time Visit Start Time 10:32 Visit Stop Time 11:17 Total Visit Minutes 45 Visit Information Visit Number 09/29 Plan of Care Dates 10/04/18 - 12/22/18 Insurance Information [facility] $40 co-pay Setting Treatment Setting Outpatient Care Visit Type Note Type Progress Note Next Note Type Next Note Type Treatment Note General Information General Information This 78-yr-old male was diagnosed with Parkinson's disease ~2 yrs ago. He developed shuffling gait ~5 yrs ago and has experienced cognitive changes since diagnosis. He was seen for neuropsychomitric testing in March 2018 and diagnosed with mild neuro cognitive disorder. The pt continues with occasional balance and visuospatial processing problems and recently completed LSVT-Big with Physical Therapy 1 yr ago and continues with PT 1x/wk. The pt has now successfully completed LSVT-Loud to improve voice/vocal loudess, as his voice had gotten softer over time, which had been of particular impact on his . Pt continues to deny tremor and swallow difficulties. He endorses loss of smell and taste, which impacts his interest in food and has lessened his consumption, and both he and his report decline in memory skills. The pt underwent Psychological Testing administered by Dr. Johnson of [facility] on 04/05/18 which indicated no major neurological dysfunction but more likely normal changes consistent with aging. Scores of Low Average or Extremely Low occurred in areas of memory on CLVT, WMS-IV, and CVLT-2 tests. It is possible that some of his scores, while falling within the average range, represent declines from his baseline and this would likely be due to his movement disorder. In his case there is the possiblity of high cognitive reserves obscuring true declines. There are no consistent indications of the frontosubcortical cognitive profile of person with Parkinson's disease or other movement disorders. The pt has an extended family history of Parkinson's disease , including a brother who developed PD in his 40s and in his 60s; a sister with PD and significant dementia; a sister who was told she had PD and is now in a wheelchair, although the diagnosis is not certain. This obviously increases the pt's concern about his own developing symptoms. He also reported a brother, sister and 2 cousins who have been diagnosed with [place] Syndrome, which may be related to toxic environmental exposures. Finally, the pt has a pacemaker and is on blood thinners. He has concerns of falling, secondary to balance issues, and of potentially hitting his head and developing bleeding in his brain. He wears a helmet when engaged in any physical activity in which he may experience a fall (e.g., bike riding, walking outdoors, etc. ). His concern is exaccerbated by having had a sister who fell and from a brain hemorrhage. Subjective Observations/Patient Presentation The pt arrived on time. Reported not feeling quite myself; questioned if he may be coming down with a cold. He was feeling well enough to participate in treatment. Chief Complaint(s) Cognitive,Voice Additional Areas of Concern Improve short-term and working memory Rehab Expectation/Goals: Patient Goals Increase vocal loudness to be heard by others, sandra ; Improve memory Objective Short Term Goals 1. The pt will identify memory strategies (e.g., visualization techniques, increasing awareness, etc.) in structured tasks to assist in recalling names, lists of up to 5 items, etc., necessary for functional activities. 2. Using memory strategies, the pt will recall names and lists of up to 5 items after a 3-minute or greater delay with 80% accuracy to increase functional memory skills. Assisted Goals 1. Pt will maintain loudness levels with avg of 70 dB or greater in spontaneous conversation in 75% of opportunities. 2. Using memory strategies as needed, the pt will demonstrate delayed recall (>5 min) of 7-digit number sequences with 80% accuracy. 3. Given pictures or descriptions of persons in the pt's functional life, he will recall names with 80% accuracy to improve memory skills and maintain relationships. 4. The pt will report memory skills WFL, with use of internal/external strategies as needed. Treatment Activities Trained pt in memory strategies including associations, mnemonics, visualization, and repetition. Given word lists of 4 related items, the clinician demonstrated application of various memory strategies. Using strategies, the pt exhibited immediate recall with 100% accuracy x2 lists, and delayed recall with 88% accuracy (4/4 items in one list, 3/4 items in the other). With verbal prompts, the pt recalled the missing item and with further prompting he was able to order correctly. The pt expressed feelings of discouragement and questioned what happened to make it so hard? Skilled feedback, education and words of encouragement were provided, particularly regarding natural age-related memory changes. Needs reinforcement. Assessment Patient Response to Treatment Excellent Rehab Potential Good Impairments Identified Cognitive-Linguistic Skills, Memory - Short Term,Parkinson' s Disease,Vocal Quality Progress Towards Goals Excellent Progress Assessment of Overall Progress Improving Assessment of Improvement The pt was moderately responsive to initial training of memory strategies. He was encouraged to challenge himself to recall lists of 3-4 items in his functional tasks throughout the week to further discover which strategies come most naturally for him. Needs reinforcement. Reviewed with Patient Goals,Progress Being Made,Home Exercise Program Patient/Caregiver Understanding Excellent Plan Amount of Therapy Recommended 1-2 Months Frequency of Treatment Once a Week Length of Session 45 Minutes Treatment Emphasis Next Session Cognitive communication skills ; STM Therapeutic Contents Client Education,Cognitive- Linguistic Training,Home Exercise Program,Voice Training Provided Patient/Caregiver Instruction Home Exercise Program,Plan of Care,Questions/Concerns Therapy Recommendations Decrease Frequency of Rehabilitation,Other Comment LSVT-Loud completed. Updated POC to include cognitive communication
--- NOTE | 2018-12-13 09:27 | ST.OPTN ---
Visit Care Team Role Provider Type Carisa Hoffmann PA-C Primary Care Provider Advanced Diesel Locomotive Engineer Address: [address] [place] [address], [address], [place], [address] Natalia Awad Attending Provider Non-Staff Address: [address] [place] [address], [place], [address] GARDEN TRACTOR MECHANIC Treatment Note GARDEN TRACTOR MECHANIC Treatment Note Start: 10/04/18 16:57 Freq: Status: Active Protocol: Document 12/13/18 09:23 ALEXANDRA (Rec: 12/13/18 09:27 ALEXANDRA [id number]) Speech Pathology Treatment Note Session Time Visit Start Time 08:30 Visit Stop Time 09:20 Total Visit Minutes 50 Visit Information Visit Number 10/30 Plan of Care Dates 10/04/18 - 12/22/18 Insurance Information [employer] $40 co-pay Setting Treatment Setting Outpatient Care Visit Type Note Type Progress Note Next Note Type Next Note Type Treatment Note General Information General Information This 78-yr-old male was diagnosed with Parkinson's disease ~2 yrs ago. He developed shuffling gait ~5 yrs ago and has experienced cognitive changes since diagnosis. He was seen for neuropsychomitric testing in March 2018 and diagnosed with mild neuro cognitive disorder. The pt continues with occasional balance and visuospatial processing problems and recently completed LSVT-Big with Physical Therapy 1 yr ago and continues with PT 1x/wk. The pt has now successfully completed LSVT-Loud to improve voice/vocal loudess, as his voice had gotten softer over time, which had been of particular impact on his . Pt continues to deny tremor and swallow difficulties. He endorses loss of smell and taste, which impacts his interest in food and has lessened his consumption, and both he and his report decline in memory skills. The pt underwent Psychological Testing administered by Dr. Johnson of [facility] on 04/05/18 which indicated no major neurological dysfunction but more likely normal changes consistent with aging. Scores of Low Average or Extremely Low occurred in areas of memory on CLVT, WMS-IV, and CVLT-2 tests. It is possible that some of his scores, while falling within the average range, represent declines from his baseline and this would likely be due to his movement disorder. In his case there is the possiblity of high cognitive reserves obscuring true declines. There are no consistent indications of the frontosubcortical cognitive profile of person with Parkinson's disease or other movement disorders. The pt has an extended family history of Parkinson's disease , including a brother who developed PD in his 40s and in his 60s; a sister with PD and significant dementia; a sister who was told she had PD and is now in a wheelchair, although the diagnosis is not certain. This obviously increases the pt's concern about his own developing symptoms. He also reported a brother, sister and 2 cousins who have been diagnosed with [place] Syndrome, which may be related to toxic environmental exposures. Finally, the pt has a pacemaker and is on blood thinners. He has concerns of falling, secondary to balance issues, and of potentially hitting his head and developing bleeding in his brain. He wears a helmet when engaged in any physical activity in which he may experience a fall (e.g., bike riding, walking outdoors, etc. ). His concern is exaccerbated by having had a sister who fell and from a brain hemorrhage. Subjective Observations/Patient Presentation The pt arrived on time. No new complaints. Chief Complaint(s) Cognitive,Voice Additional Areas of Concern Improve short-term and working memory Rehab Expectation/Goals: Patient Goals Increase vocal loudness to be heard by others, sandra ; Improve memory Objective Short Term Goals 1. The pt will identify memory strategies (e.g., visualization techniques, increasing awareness, etc.) in structured tasks to assist in recalling names, lists of up to 5 items, etc., necessary for functional activities. 2. Using memory strategies, the pt will recall names and lists of up to 5 items after a 3-minute or greater delay with 80% accuracy to increase functional memory skills. Skilled Nursing Goals 1. Pt will maintain loudness levels with avg of 70 dB or greater in spontaneous conversation in 75% of opportunities. 2. Using memory strategies as needed, the pt will demonstrate delayed recall (>5 min) of 7-digit number sequences with 80% accuracy. 3. Given pictures or descriptions of persons in the pt's functional life, he will recall names with 80% accuracy to improve memory skills and maintain relationships. 4. The pt will report memory skills WFL, with use of internal/external strategies as needed. Treatment Activities Trained pt in memory strategies to recall names, including facial feature identification, name association, repetition, and keeping a name journal. Given 3 unfamiliar faces/names and using these strategies, the pt recalled 2/3 names after a delay of ~8 min. Skilled feedback provided. Pt identified difficulty with 3rd name and created a different association. Will f/u in next session to assess memory of these names. Assessment Patient Response to Treatment Excellent Rehab Potential Good Impairments Identified Cognitive-Linguistic Skills, Memory - Short Term,Parkinson' s Disease,Vocal Quality Progress Towards Goals Excellent Progress Assessment of Overall Progress Improving Assessment of Improvement The pt was receptive and responsive to strategies to remembering names. Able to identify appropriate facial features and create associations with names with moderate prompting. Needs reinforcement. Reviewed with Patient Goals,Progress Being Made,Home Exercise Program Patient/Caregiver Understanding Excellent Plan Amount of Therapy Recommended 1-2 Months Frequency of Treatment Once a Week Length of Session 45 Minutes Treatment Emphasis Next Session Cognitive communication skills ; STM Therapeutic Contents Client Education,Cognitive- Linguistic Training,Home Exercise Program,Voice Training Provided Patient/Caregiver Instruction Home Exercise Program,Plan of Care,Questions/Concerns Therapy Recommendations Decrease Frequency of Rehabilitation,Other Comment LSVT-Loud completed. Updated POC to include cognitive communication
--- NOTE | 2019-02-07 15:33 | ST.OPTN ---
Visit Care Team Role Provider Type Carisa Hoffmann PA-C Primary Care Provider Advanced Marble Installer Supervisor Address: [address] [place] [address], [address], [place], [address] Natalia Awad Attending Provider Non-Staff Address: [address] [place] [address], [place], [address] ADMITTING COORDINATOR Treatment Note ADMITTING COORDINATOR Treatment Note Start: 10/04/18 16:57 Freq: Status: Active Protocol: Document 02/07/19 14:15 ALEXANDRA (Rec: 02/07/19 14:30 ALEXANDRA [email or web address]) Speech Pathology Treatment Note Session Time Visit Start Time 08:40 Visit Stop Time 09:25 Total Visit Minutes 45 Visit Information Visit Number 04/01 Plan of Care Dates 10/04/18 - 12/22/18 Insurance Information [employer] $40 co-pay Setting Treatment Setting Outpatient Care Visit Type Note Type Re-Evaluation Next Note Type Next Note Type Treatment Note General Information General Information This 78-yr-old male was diagnosed with Parkinson's disease ~2 yrs ago. He developed shuffling gait ~5 yrs ago and has experienced cognitive changes since diagnosis. He was seen for neuropsychomitric testing in March 2018 and diagnosed with mild neuro cognitive disorder. The pt continues with occasional balance and visuospatial processing problems and recently completed LSVT-Big with Physical Therapy 1 yr ago and continues with PT 1x/wk. The pt has now successfully completed LSVT-Loud to improve voice/vocal loudess, as his voice had gotten softer over time, which had been of particular impact on his . Pt continues to deny tremor and swallow difficulties. He endorses loss of smell and taste, which impacts his interest in food and has lessened his consumption, and both he and his report decline in memory skills. The pt underwent Psychological Testing administered by Dr. Johnson of [facility] on 04/05/18 which indicated no major neurological dysfunction but more likely normal changes consistent with aging. Scores of Low Average or Extremely Low occurred in areas of memory on CLVT, WMS-IV, and CVLT-2 tests. It is possible that some of his scores, while falling within the average range, represent declines from his baseline and this would likely be due to his movement disorder. In his case there is the possiblity of high cognitive reserves obscuring true declines. There are no consistent indications of the frontosubcortical cognitive profile of person with Parkinson's disease or other movement disorders. The pt has an extended family history of Parkinson's disease , including a brother who developed PD in his 40s and in his 60s; a sister with PD and significant dementia; a sister who was told she had PD and is now in a wheelchair, although the diagnosis is not certain. This obviously increases the pt's concern about his own developing symptoms. He also reported a brother, sister and 2 cousins who have been diagnosed with [place] Syndrome, which may be related to toxic environmental exposures. Finally, the pt has a pacemaker and is on blood thinners. He has concerns of falling, secondary to balance issues, and of potentially hitting his head and developing bleeding in his brain. He wears a helmet when engaged in any physical activity in which he may experience a fall (e.g., bike riding, walking outdoors, etc. ). His concern is exaccerbated by having had a sister who fell and from a brain hemorrhage. Subjective Observations/Patient Presentation The pt returns after a delayed absence. He was scheduled for a 9:30 appt but arrived at 8: 30 and was able to be seen by the therapist at that time. The pt reports poor carryover with LSVT-Loud HEP tasks and complaints from his that he again is difficult to hear and understand. He also reports ongoing memory difficulties and would like to address both vocal loudness and cognitive-communication skills with ongoing ST services. He asked to increase frequency in order to assist in improving function more quickly and to increase HEP compliance with such accountability. Therapist was in agreement with these requests and suggested the pt keep an exercise journal, which he agreed would be helpful. Chief Complaint(s) Cognitive,Voice Additional Areas of Concern Improve short-term and working memory Rehab Expectation/Goals: Patient Goals Increase vocal loudness to be heard by others, sandra ; Improve memory Patient Knowledge/Awareness of ADMITTING COORDINATOR Role Excellent in Treatment Objective Short Term Goals 1. The pt will identify memory strategies (e.g., visualization techniques, increasing awareness, etc.) in structured tasks to assist in recalling names, lists of up to 5 items, etc., necessary for functional activities. 2. Using memory strategies, the pt will recall names and lists of up to 5 items after a 3-minute or greater delay with 80% accuracy to increase functional memory skills. 3. Pt will complete LSVT-Loud voice exercises with avg loudness levels within normal conversational limits (65-75dB ) in 90% of opportunities. 4. Pt will perform LSVT-Loud HEP tasks no less than 5x/wk across 3 wks to promote long- term carryover and independence with meeting/ maintaining vocal loudness targets, as demonstrated by exercise journal completed by pt. [facility] Goals 1. Pt will maintain loudness levels with avg of 70 dB or greater in spontaneous conversation in 75% of opportunities. 2. Using memory strategies as needed, the pt will demonstrate delayed recall (>5 min) of 7-digit number sequences with 80% accuracy. 3. Given pictures or descriptions of persons in the pt's functional life, he will recall names with 80% accuracy to improve memory skills and maintain relationships. 4. The pt will report memory skills WFL, with use of internal/external strategies as needed. Treatment Activities Consulted with pt RE HEP compliance, changes in skills since last seen. Established an exercise journal targeting LSVT-Loud exercises. Educated pt on importance of consistent practice based on research and neuroplasticity principles . Pt verbalized understanding and agreement, and acknowledged he remains at least in part in denial of his PD dx. Provided the pt with a book containing a collection of writings from PD pts and family members of pts in hopes the pt will find some inspiration and motivation in these stories. He was appreciative of and agreeable to borrowing the book. Assessed pt's current function with LSVT-Loud tasks. MPT = 27.96 sec at 73 dB avg loudness. Pt attempted sustained phonation x3 after this trial and maintained up to 12 seconds, possibly indicating fatigue or otherwise reduced endurance. Pitch Glides: 111-333 Hz, avg loudness 80 dB for both up and down the scale (highs and lows respectively). Pt participated in developing 5 new functional phrases. Agreed to expand list to 10. He read phrases with avg loudness of 74 dB. Loudness in conversation averaged 63 dB without prompting to 69 dB with ADMITTING COORDINATOR's prompting. Pt was > 95% intelligible to this familiar listener in a quiet and small environment; however , listener effort was required . Assessment Patient Response to Treatment Excellent Rehab Potential Good Impairments Identified Cognitive-Linguistic Skills, Memory - Short Term,Parkinson' s Disease,Vocal Quality Progress Towards Goals Excellent Progress Assessment of Overall Progress Improving Assessment of Improvement The pt presents with significant decline in vocal loudness in spontaneous conversation since completing LSVT-Loud program Nov 11. He is able to produce loudness within or above normal conversational levels in structured tasks, demonstrating adequate breath support and vocal quality for normal levels. Inconsistent performance in sustained phonation across 3 trials ( significant decline in duration after first trial) may indicate vocal and/or respiratory fatigue factor. Will resume treatment 2x/wk for 4 wks with possible tapering thereafter, focusing on increasing and then maintaining vocal loudness, consistency with HEP, and exercises and strategies to manage and improve memory skills. Reviewed with Patient Goals,Progress Being Made,Home Exercise Program Patient/Caregiver Understanding Excellent Plan Amount of Therapy Recommended 2-3 Months Frequency of Treatment Twice a Week Comment 2x/wk for 4 wks, taper thereafter Length of Session 45 Minutes Treatment Emphasis Next Session Cognitive communication skills ; STM Therapeutic Contents Client Education,Cognitive- Linguistic Training,Home Exercise Program,Voice Training Provided Patient/Caregiver Instruction Home Exercise Program,Plan of Care,Questions/Concerns Therapy Recommendations Decrease Frequency of Rehabilitation,Other Comment LSVT-Loud completed. Updated POC to include cognitive communication
--- NOTE | 2019-02-09 11:23 | ST.OPTN ---
Visit Care Team Role Provider Type Carisa Hoffmann PA-C Primary Care Provider Advanced Shake Backboard Notcher Address: [address] [place] [address], [address], [place], [address] Natalia Awad Attending Provider Non-Staff Address: [address] [place] [address], [place], [address] MILLWRIGHT Treatment Note MILLWRIGHT Treatment Note Start: 10/04/18 16:57 Freq: Status: Active Protocol: Document 02/09/19 10:18 ALEXANDRA (Rec: 02/09/19 10:28 ALEXANDRA [email or web address]) Speech Pathology Treatment Note Session Time Visit Start Time 09:30 Visit Stop Time 10:15 Total Visit Minutes 45 Visit Information Visit Number 05/02 Plan of Care Dates 10/04/18 - 12/22/18 Insurance Information [employer] $40 co-pay Setting Treatment Setting Outpatient Care Visit Type Note Type Re-Evaluation Next Note Type Next Note Type Treatment Note General Information General Information This 78-yr-old male was diagnosed with Parkinson's disease ~2 yrs ago. He developed shuffling gait ~5 yrs ago and has experienced cognitive changes since diagnosis. He was seen for neuropsychomitric testing in March 2018 and diagnosed with mild neuro cognitive disorder. The pt continues with occasional balance and visuospatial processing problems and recently completed LSVT-Big with Physical Therapy 1 yr ago and continues with PT 1x/wk. The pt has now successfully completed LSVT-Loud to improve voice/vocal loudess, as his voice had gotten softer over time, which had been of particular impact on his . Pt continues to deny tremor and swallow difficulties. He endorses loss of smell and taste, which impacts his interest in food and has lessened his consumption, and both he and his report decline in memory skills. The pt underwent Psychological Testing administered by Dr. Johnson of [facility] on 04/05/18 which indicated no major neurological dysfunction but more likely normal changes consistent with aging. Scores of Low Average or Extremely Low occurred in areas of memory on CLVT, WMS-IV, and CVLT-2 tests. It is possible that some of his scores, while falling within the average range, represent declines from his baseline and this would likely be due to his movement disorder. In his case there is the possiblity of high cognitive reserves obscuring true declines. There are no consistent indications of the frontosubcortical cognitive profile of person with Parkinson's disease or other movement disorders. The pt has an extended family history of Parkinson's disease , including a brother who developed PD in his 40s and in his 60s; a sister with PD and significant dementia; a sister who was told she had PD and is now in a wheelchair, although the diagnosis is not certain. This obviously increases the pt's concern about his own developing symptoms. He also reported a brother, sister and 2 cousins who have been diagnosed with [place] Syndrome, which may be related to toxic environmental exposures. Finally, the pt has a pacemaker and is on blood thinners. He has concerns of falling, secondary to balance issues, and of potentially hitting his head and developing bleeding in his brain. He wears a helmet when engaged in any physical activity in which he may experience a fall (e.g., bike riding, walking outdoors, etc. ). His concern is exaccerbated by having had a sister who fell and from a brain hemorrhage. Subjective Observations/Patient Presentation Pt arrived on time with exercise journal. He practiced LSVT-Loud exercises x2 yesterday, as prescribed. Chief Complaint(s) Cognitive,Voice Additional Areas of Concern Improve short-term and working memory Rehab Expectation/Goals: Patient Goals Increase vocal loudness to be heard by others, sandra ; Improve memory Patient Knowledge/Awareness of MILLWRIGHT Role Excellent in Treatment Objective Short Term Goals 1. The pt will identify memory strategies (e.g., visualization techniques, increasing awareness, etc.) in structured tasks to assist in recalling names, lists of up to 5 items, etc., necessary for functional activities. 2. Using memory strategies, the pt will recall names and lists of up to 5 items after a 3-minute or greater delay with 80% accuracy to increase functional memory skills. 3. Pt will complete LSVT-Loud voice exercises with avg loudness levels within normal conversational limits (65-75dB ) in 90% of opportunities. 4. Pt will perform LSVT-Loud HEP tasks no less than 5x/wk across 3 wks to promote long- term carryover and independence with meeting/ maintaining vocal loudness targets, as demonstrated by exercise journal completed by pt. Nursing Home Goals 1. Pt will maintain loudness levels with avg of 70 dB or greater in spontaneous conversation in 75% of opportunities. 2. Using memory strategies as needed, the pt will demonstrate delayed recall (>5 min) of 7-digit number sequences with 80% accuracy. 3. Given pictures or descriptions of persons in the pt's functional life, he will recall names with 80% accuracy to improve memory skills and maintain relationships. 4. The pt will report memory skills WFL, with use of internal/external strategies as needed. Treatment Activities Pt had questions about frequency of tx. Questions answered with discussion of POC. Pt in agreement with 2x/ wk for 4 wks, taper thereafter . Trained pt in external and internal memory strategies. Pt reported difficulty remembering to speak loudly, as well as other information such as names, appts, details of conversations. Educated pt on use of external memory strategies and suggested wearing a rubber band on wrist as reminder to speak loudly. The pt was agreeable to this, and a rubber band was provided to him. Using 3-item list of unassociated words, trained pt in internal memory strategies . Pt identified association between 2 of the words. MILLWRIGHT suggested other association for 3rd word. Pt recalled the list after a delay of ~15 min during which other activities were performed. Voice: Pt performed sustained phonation with MPT of 32 sec ( 3rd of 3 trials) and range of 26-32 sec. Avg loudness was 78 dB across the 3 trials. Pt performed pitch glides with range of 104-316 Hz with good vocal quality, avg loudness of highs was 78 dB and of lows was 78.5 dB. Average loudness in conversation was initially 64 dB at start of session, improving after prompts to 68 dB. Assessment Patient Response to Treatment Excellent Rehab Potential Good Impairments Identified Cognitive-Linguistic Skills, Memory - Short Term,Parkinson' s Disease,Vocal Quality Progress Towards Goals Excellent Progress Assessment of Overall Progress Improving Assessment of Improvement Mildly improved vocal loudness in conversation today vs Thursday. Pt was able to sustain phonation for >25 sec across 3 consecutive trials at target loudness levels, demonstrating good vocal stamina. He was responsive to training of external and internal memory strategies and able to recall a 3-item list of unassociated words after a delay and other activities. Will continue training in recall of words, numbers, and names using similar strategies to increase processing speeds for functional situations. At this point it is important to train the pt in strategic thinking processes. Once improved and able to use strategies quickly, will challenge the pt to recall increased numbers and varieties of items. Reviewed with Patient Goals,Progress Being Made,Home Exercise Program Patient/Caregiver Understanding Excellent Plan Amount of Therapy Recommended 2-3 Months Frequency of Treatment Twice a Week Comment 2x/wk for 4 wks, taper thereafter Length of Session 45 Minutes Treatment Emphasis Next Session Pattern & association recognition with numbers & names Therapeutic Contents Client Education,Cognitive- Linguistic Training,Home Exercise Program,Voice Training Provided Patient/Caregiver Instruction Home Exercise Program,Plan of Care,Questions/Concerns Therapy Recommendations Decrease Frequency of Rehabilitation,Other Comment LSVT-Loud completed. Updated POC to include cognitive communication
--- NOTE | 2019-02-14 16:35 | ST.OPTN ---
Visit Care Team Role Provider Type Carisa Hoffmann PA-C Primary Care Provider Advanced Funeral Limousine Driver Address: [address] [place] [address], [address], [place], [address] Natalia Awad Attending Provider Non-Staff Address: [address] [place] [address], [place], [address] HEEL SCORER Treatment Note HEEL SCORER Treatment Note Start: 10/04/18 16:57 Freq: Status: Active Protocol: Document 02/14/19 16:23 ALEXANDRA (Rec: 02/14/19 16:35 ALEXANDRA [id number]) Speech Pathology Treatment Note Session Time Visit Start Time 15:30 Visit Stop Time 16:23 Total Visit Minutes 53 Visit Information Visit Number 05/30 Plan of Care Dates 10/04/18 - 12/22/18 Insurance Information [employer] $40 co-pay Setting Treatment Setting Outpatient Care Visit Type Note Type Re-Evaluation Next Note Type Next Note Type Treatment Note General Information General Information This 78-yr-old male was diagnosed with Parkinson's disease ~2 yrs ago. He developed shuffling gait ~5 yrs ago and has experienced cognitive changes since diagnosis. He was seen for neuropsychomitric testing in March 2018 and diagnosed with mild neuro cognitive disorder. The pt continues with occasional balance and visuospatial processing problems and recently completed LSVT-Big with Physical Therapy 1 yr ago and continues with PT 1x/wk. The pt has now successfully completed LSVT-Loud to improve voice/vocal loudess, as his voice had gotten softer over time, which had been of particular impact on his . Pt continues to deny tremor and swallow difficulties. He endorses loss of smell and taste, which impacts his interest in food and has lessened his consumption, and both he and his report decline in memory skills. The pt underwent Psychological Testing administered by Dr. Johnson of [facility] on 04/05/18 which indicated no major neurological dysfunction but more likely normal changes consistent with aging. Scores of Low Average or Extremely Low occurred in areas of memory on CLVT, WMS-IV, and CVLT-2 tests. It is possible that some of his scores, while falling within the average range, represent declines from his baseline and this would likely be due to his movement disorder. In his case there is the possiblity of high cognitive reserves obscuring true declines. There are no consistent indications of the frontosubcortical cognitive profile of person with Parkinson's disease or other movement disorders. The pt has an extended family history of Parkinson's disease , including a brother who developed PD in his 40s and in his 60s; a sister with PD and significant dementia; a sister who was told she had PD and is now in a wheelchair, although the diagnosis is not certain. This obviously increases the pt's concern about his own developing symptoms. He also reported a brother, sister and 2 cousins who have been diagnosed with [place] Syndrome, which may be related to toxic environmental exposures. Finally, the pt has a pacemaker and is on blood thinners. He has concerns of falling, secondary to balance issues, and of potentially hitting his head and developing bleeding in his brain. He wears a helmet when engaged in any physical activity in which he may experience a fall (e.g., bike riding, walking outdoors, etc. ). His concern is exaccerbated by having had a sister who fell and from a brain hemorrhage. Subjective Observations/Patient Presentation Pt arrived on time with exercise journal. He practiced LSVT-Loud exercises x1 since last session. He reported having an ongoing cold and felt his voice was raspier than normal, as was perceived by the clinician as well. Chief Complaint(s) Cognitive,Voice Additional Areas of Concern Improve short-term and working memory Rehab Expectation/Goals: Patient Goals Increase vocal loudness to be heard by others, sandra ; Improve memory Patient Knowledge/Awareness of HEEL SCORER Role Excellent in Treatment Objective Short Term Goals 1. The pt will identify memory strategies (e.g., visualization techniques, increasing awareness, etc.) in structured tasks to assist in recalling names, lists of up to 5 items, etc., necessary for functional activities. 2. Using memory strategies, the pt will recall names and lists of up to 5 items after a 3-minute or greater delay with 80% accuracy to increase functional memory skills. 3. Pt will complete LSVT-Loud voice exercises with avg loudness levels within normal conversational limits (65-75dB ) in 90% of opportunities. 4. Pt will perform LSVT-Loud HEP tasks no less than 5x/wk across 3 wks to promote long- term carryover and independence with meeting/ maintaining vocal loudness targets, as demonstrated by exercise journal completed by pt. Intermediate Goals 1. Pt will maintain loudness levels with avg of 70 dB or greater in spontaneous conversation in 75% of opportunities. 2. Using memory strategies as needed, the pt will demonstrate delayed recall (>5 min) of 7-digit number sequences with 80% accuracy. 3. Given pictures or descriptions of persons in the pt's functional life, he will recall names with 80% accuracy to improve memory skills and maintain relationships. 4. The pt will report memory skills WFL, with use of internal/external strategies as needed. Treatment Activities Voice: Educated pt on vocal hygiene and forward resonance to reduce vocal strain or overuse while recovering from his cold. The pt informed of an interest in chanting and opportunity through his anabaptism to engage in chanting. Skilled feedback provided on using chanting as vocal exercise. Pt was receptive. Will f/u in future sessions. In spontaneous conversation, the pt maintained avg loudness levels between 67-69 dB through much of the session, fading to ~64 by end of session. Memory: Continued education orally and in writing on internal memory strategies, particularly when recalling numbers and names. Recommended pt state others' names periodically (at least 3 times ) in conversation to train himself to be intentional in this way and in the process increasing use of this memory strategy. The pt also identified associations with 3 individuals known to him, demonstrating understanding of association strategies. Needs reinforcement. Assessment Patient Response to Treatment Excellent Rehab Potential Good Impairments Identified Cognitive-Linguistic Skills, Memory - Short Term,Parkinson' s Disease,Vocal Quality Progress Towards Goals Excellent Progress Assessment of Overall Progress Improving Assessment of Improvement Mildly improved vocal loudness in conversation observed through most of the session, fading near the end. Minimal compliance with HEP tasks in last week. The pt verbalized understanding of purpose and importance of home practice. He was receptive to ongoing training in internal memory skills, which need reinforcement. Reviewed with Patient Goals,Progress Being Made,Home Exercise Program Patient/Caregiver Understanding Excellent Plan Amount of Therapy Recommended 2-3 Months Frequency of Treatment Twice a Week Comment 2x/wk for 4 wks, taper thereafter Length of Session 45 Minutes Treatment Emphasis Next Session Pattern & association recognition with numbers & names Therapeutic Contents Client Education,Cognitive- Linguistic Training,Home Exercise Program,Voice Training Provided Patient/Caregiver Instruction Home Exercise Program,Plan of Care,Questions/Concerns Therapy Recommendations Continue with Current Program
--- NOTE | 2019-02-16 17:05 | ST.OPTN ---
Visit Care Team Role Provider Type Carisa Hoffmann PA-C Primary Care Provider Advanced Software Implementation Project Manager Address: [address] [place] [address], [address], [place], [address] Natalia Awad Attending Provider Non-Staff Address: [address] [place] [address], [place], [address] CASTING TECHNICIAN Treatment Note CASTING TECHNICIAN Treatment Note Start: 10/04/18 16:57 Freq: Status: Active Protocol: Document 02/16/19 16:34 ALEXANDRA (Rec: 02/16/19 17:05 ALEXANDRA [id number]) Speech Pathology Treatment Note Session Time Visit Start Time 09:30 Visit Stop Time 10:15 Total Visit Minutes 45 Visit Information Visit Number 06/30 Plan of Care Dates 10/04/18 - 12/22/18 Insurance Information [facility] $40 co-pay Setting Treatment Setting Outpatient Care Visit Type Note Type Re-Evaluation Next Note Type Next Note Type Treatment Note General Information General Information This 78-yr-old male was diagnosed with Parkinson's disease ~2 yrs ago. He developed shuffling gait ~5 yrs ago and has experienced cognitive changes since diagnosis. He was seen for neuropsychomitric testing in March 2018 and diagnosed with mild neuro cognitive disorder. The pt continues with occasional balance and visuospatial processing problems and recently completed LSVT-Big with Physical Therapy 1 yr ago and continues with PT 1x/wk. The pt has now successfully completed LSVT-Loud to improve voice/vocal loudess, as his voice had gotten softer over time, which had been of particular impact on his . Pt continues to deny tremor and swallow difficulties. He endorses loss of smell and taste, which impacts his interest in food and has lessened his consumption, and both he and his report decline in memory skills. The pt underwent Psychological Testing administered by Dr. Johnson of [facility] on 04/05/18 which indicated no major neurological dysfunction but more likely normal changes consistent with aging. Scores of Low Average or Extremely Low occurred in areas of memory on CLVT, WMS-IV, and CVLT-2 tests. It is possible that some of his scores, while falling within the average range, represent declines from his baseline and this would likely be due to his movement disorder. In his case there is the possiblity of high cognitive reserves obscuring true declines. There are no consistent indications of the frontosubcortical cognitive profile of person with Parkinson's disease or other movement disorders. The pt has an extended family history of Parkinson's disease , including a brother who developed PD in his 40s and in his 60s; a sister with PD and significant dementia; a sister who was told she had PD and is now in a wheelchair, although the diagnosis is not certain. This obviously increases the pt's concern about his own developing symptoms. He also reported a brother, sister and 2 cousins who have been diagnosed with [place] Syndrome, which may be related to toxic environmental exposures. Finally, the pt has a pacemaker and is on blood thinners. He has concerns of falling, secondary to balance issues, and of potentially hitting his head and developing bleeding in his brain. He wears a helmet when engaged in any physical activity in which he may experience a fall (e.g., bike riding, walking outdoors, etc. ). His concern is exaccerbated by having had a sister who fell and from a brain hemorrhage. Subjective Observations/Patient Presentation Pt arrived on time with exercise journal. Reported practicing yesterday. Chief Complaint(s) Cognitive,Voice Additional Areas of Concern Improve short-term and working memory Rehab Expectation/Goals: Patient Goals Increase vocal loudness to be heard by others, sandra ; Improve memory Patient Knowledge/Awareness of CASTING TECHNICIAN Role Excellent in Treatment Objective Short Term Goals 1. The pt will identify memory strategies (e.g., visualization techniques, increasing awareness, etc.) in structured tasks to assist in recalling names, lists of up to 5 items, etc., necessary for functional activities. 2. Using memory strategies, the pt will recall names and lists of up to 5 items after a 3-minute or greater delay with 80% accuracy to increase functional memory skills. 3. Pt will complete LSVT-Loud voice exercises with avg loudness levels within normal conversational limits (65-75dB ) in 90% of opportunities. 4. Pt will perform LSVT-Loud HEP tasks no less than 5x/wk across 3 wks to promote long- term carryover and independence with meeting/ maintaining vocal loudness targets, as demonstrated by exercise journal completed by pt. Stone Product Fabricator Goals 1. Pt will maintain loudness levels with avg of 70 dB or greater in spontaneous conversation in 75% of opportunities. 2. Using memory strategies as needed, the pt will demonstrate delayed recall (>5 min) of 7-digit number sequences with 80% accuracy. 3. Given pictures or descriptions of persons in the pt's functional life, he will recall names with 80% accuracy to improve memory skills and maintain relationships. 4. The pt will report memory skills WFL, with use of internal/external strategies as needed. Treatment Activities Voice: MPT = 29 sec; Range = 21.6 - 29 sec across 4 trials. Avg loudness 78.7 dB Pitch Exercises: 108-300 Hz with good quality voice, avg loudness 80 dB. Pt read functional sentences with avg loudness 74.7 dB. Conversation: 64.5 dB avg loudness, increasing but not sustained with verbal prompts. Memory: Continued education and training of internal memory strategies. Pt exhibited difficulty creating associations between words in a list and questioned the purpose of task. Education provided RE using word lists to train the brain in make associations. Continued training with recall of names/ faces, which the pt has expressed is of great importance to him. Again, the pt exhibited great difficulty identifying associations. He was moderately receptive to the clinician's suggestions, expressing much doubt in the target strategy, which appeared to inhibit him from attempting. Will explore other strategies and methods of training the pt to create and/ or recognize associations. Assessment Patient Response to Treatment Excellent Rehab Potential Good Impairments Identified Cognitive-Linguistic Skills, Memory - Short Term,Parkinson' s Disease,Vocal Quality Progress Towards Goals Slow Progress Assessment of Improvement Pt demonstrate excellent loudness in structured tasks and ability to sustain phonation to and above normal durations. Loudness levels continue to drop significantly in conversation and, while audible to this clinician in a quiet environment, do not meet target levels established for treatment. Instructions to increase levels to a slightly uncomfortable loudness as a means of neruo- habilitation do not successfully prompt the pt to in fact do so. He also exhibits significant difficulty in making associations beyond the most obvious to aid memory skills, despite encouragement to allow himself to think in new ways. New approaches may be necessary to make tasks increasingly salient to the pt . Reviewed with Patient Goals,Progress Being Made,Home Exercise Program Patient/Caregiver Understanding Excellent Plan Amount of Therapy Recommended 2-3 Months Frequency of Treatment Twice a Week Comment 2x/wk for 4 wks, taper thereafter Length of Session 45 Minutes Treatment Emphasis Next Session Pattern & association recognition with numbers & names Therapeutic Contents Client Education,Cognitive- Linguistic Training,Home Exercise Program,Voice Training Provided Patient/Caregiver Instruction Home Exercise Program,Plan of Care,Questions/Concerns Therapy Recommendations Continue with Current Program [id number]
--- NOTE | 2019-02-22 12:26 | ST.OPTN ---
Visit Care Team Role Provider Type Carisa Hoffmann PA-C Primary Care Provider Advanced Weather Strip Installer Address: [address] [place] [address], [address], [place], [address] Natalia Awad Attending Provider Non-Staff Address: [address] [place] [address], [place], [address] WATER SPONGER Treatment Note WATER SPONGER Treatment Note Start: 10/04/18 16:57 Freq: Status: Active Protocol: Document 02/22/19 10:25 ALEXANDRA (Rec: 02/22/19 10:30 ALEXANDRA [email or web address]) Speech Pathology Treatment Note Session Time Visit Start Time 08:30 Visit Stop Time 09:15 Total Visit Minutes 45 Visit Information Visit Number 07/30 Plan of Care Dates 10/04/18 - 12/22/18 Insurance Information [facility] $40 co-pay Setting Treatment Setting Outpatient Care Visit Type Note Type Re-Evaluation Next Note Type Next Note Type Treatment Note General Information General Information This 78-yr-old male was diagnosed with Parkinson's disease ~2 yrs ago. He developed shuffling gait ~5 yrs ago and has experienced cognitive changes since diagnosis. He was seen for neuropsychomitric testing in March 2018 and diagnosed with mild neuro cognitive disorder. The pt continues with occasional balance and visuospatial processing problems and recently completed LSVT-Big with Physical Therapy 1 yr ago and continues with PT 1x/wk. The pt has now successfully completed LSVT-Loud to improve voice/vocal loudess, as his voice had gotten softer over time, which had been of particular impact on his . Pt continues to deny tremor and swallow difficulties. He endorses loss of smell and taste, which impacts his interest in food and has lessened his consumption, and both he and his report decline in memory skills. The pt underwent Psychological Testing administered by Dr. Johnson of [facility] on 04/05/18 which indicated no major neurological dysfunction but more likely normal changes consistent with aging. Scores of Low Average or Extremely Low occurred in areas of memory on CLVT, WMS-IV, and CVLT-2 tests. It is possible that some of his scores, while falling within the average range, represent declines from his baseline and this would likely be due to his movement disorder. In his case there is the possiblity of high cognitive reserves obscuring true declines. There are no consistent indications of the frontosubcortical cognitive profile of person with Parkinson's disease or other movement disorders. The pt has an extended family history of Parkinson's disease , including a brother who developed PD in his 40s and in his 60s; a sister with PD and significant dementia; a sister who was told she had PD and is now in a wheelchair, although the diagnosis is not certain. This obviously increases the pt's concern about his own developing symptoms. He also reported a brother, sister and 2 cousins who have been diagnosed with [place] Syndrome, which may be related to toxic environmental exposures. Finally, the pt has a pacemaker and is on blood thinners. He has concerns of falling, secondary to balance issues, and of potentially hitting his head and developing bleeding in his brain. He wears a helmet when engaged in any physical activity in which he may experience a fall (e.g., bike riding, walking outdoors, etc. ). His concern is exaccerbated by having had a sister who fell and from a brain hemorrhage. Subjective Observations/Patient Presentation Pt arrived on time with exercise journal. Reported practicing with more consistency. Also reported ongoing frustration with memory stating he had trouble over weekend recalling the year and his age. Continues to struggle with names and does keep a list in his phone, although he feels accessing the list is cumbersome. Chief Complaint(s) Cognitive,Voice Additional Areas of Concern Improve short-term and working memory Rehab Expectation/Goals: Patient Goals Increase vocal loudness to be heard by others, sandra ; Improve memory Patient Knowledge/Awareness of WATER SPONGER Role Excellent in Treatment Objective Short Term Goals 1. The pt will identify memory strategies (e.g., visualization techniques, increasing awareness, etc.) in structured tasks to assist in recalling names, lists of up to 5 items, etc., necessary for functional activities. 2. Using memory strategies, the pt will recall names and lists of up to 5 items after a 3-minute or greater delay with 80% accuracy to increase functional memory skills. 3. Pt will complete LSVT-Loud voice exercises with avg loudness levels within normal conversational limits (65-75dB ) in 90% of opportunities. 4. Pt will perform LSVT-Loud HEP tasks no less than 5x/wk across 3 wks to promote long- term carryover and independence with meeting/ maintaining vocal loudness targets, as demonstrated by exercise journal completed by pt. Typesetter Apprentice Goals 1. Pt will maintain loudness levels with avg of 70 dB or greater in spontaneous conversation in 75% of opportunities. 2. Using memory strategies as needed, the pt will demonstrate delayed recall (>5 min) of 7-digit number sequences with 80% accuracy. 3. Given pictures or descriptions of persons in the pt's functional life, he will recall names with 80% accuracy to improve memory skills and maintain relationships. 4. The pt will report memory skills WFL, with use of internal/external strategies as needed. Treatment Activities Voice: Recommended pt use names list and associated traits as vocal exercise, reading aloud similar to functional phrases. Pt agreed. Memory: Consulted with pt RE his frustrations and external and internal tools/strategies he uses naturally. Education provided on need for increased attention and rehearsal of names/information that is important to him, as well as prioritizing information and elimination of unnecessary information from lists or designation to external tools only (e.g., calendar, To Do list, etc.). The pt produced the list of names he currently has in his phone and described persons listed. Of the 14 listed, the pt recalled identifying information for 8 (57%). He acknowledged that adding more/ better details about individuals will be helpful and that some of the persons could be removed from the list or moved to another less frequently referenced list. Skilled feedback was provided including recommendations to organize lists according to groups/places they are associated with, to study relevent name lists prior to interacting with those individuals, and to keep the list open on his phone for quick reference as needed. Also recommended using voide- to-text software to add names and descriptions soon after meeting new people in order to reduce awkwardness of spending too much time on his phone while in public, an expressed concern of his. The pt agreed to all of this and to using this approach tonight at a scheduled meeting . Assessment Patient Response to Treatment Excellent Rehab Potential Good Impairments Identified Cognitive-Linguistic Skills, Memory - Short Term,Parkinson' s Disease,Vocal Quality Progress Towards Goals Slow Progress Assessment of Improvement The pt continues to be frustrated with memory deficits and not highly responsive to recommended training and strategies discussed in treatment so far. Given these struggles and frustration, the pt will most likely benefit from greater and better use of external memory tools with concentrated effort on internal strategies with limited and specific pieces of information, particularly name recall. The pt agreed with WATER SPONGER instruction that intentional rehearsal and increased attention to those persons/names that are most important to him is critical to improve memory. He was responsive to recommendations to ease use of external tools, such as accessing names lists stored in his phone. Will continue therapy working with pt to prioritize information most critical to recall, as well as fine-tuning external tools and their use. Pt in agreement. Reviewed with Patient Goals,Progress Being Made,Home Exercise Program Patient/Caregiver Understanding Excellent Plan Amount of Therapy Recommended 2-3 Months Frequency of Treatment Twice a Week Comment 2x/wk for 4 wks, taper thereafter Length of Session 45 Minutes Treatment Emphasis Next Session External tools; names in phone list Therapeutic Contents Client Education,Cognitive- Linguistic Training,Home Exercise Program,Voice Training Provided Patient/Caregiver Instruction Home Exercise Program,Plan of Care,Questions/Concerns Therapy Recommendations Continue with Current Program
--- NOTE | 2019-02-23 11:33 | ST.OPTN ---
Visit Care Team Role Provider Type Carisa Hoffmann PA-C Primary Care Provider Advanced Catheterization Laboratory Technician Address: [address] [place] [address], [address], [place], [address] Natalia Awad Attending Provider Non-Staff Address: [address] [place] [address], [place], [address] CANDY DIPPER Treatment Note CANDY DIPPER Treatment Note Start: 10/04/18 16:57 Freq: Status: Active Protocol: Document 02/23/19 09:16 ALEXANDRA (Rec: 02/23/19 09:24 ALEXANDRA [id number]) Speech Pathology Treatment Note Session Time Visit Start Time 08:30 Visit Stop Time 09:15 Total Visit Minutes 45 Visit Information Visit Number 08/30 Plan of Care Dates 10/04/18 - 12/22/18 Insurance Information [employer] $40 co-pay Setting Treatment Setting Outpatient Care Visit Type Note Type Re-Evaluation Next Note Type Next Note Type Treatment Note General Information General Information This 78-yr-old male was diagnosed with Parkinson's disease ~2 yrs ago. He developed shuffling gait ~5 yrs ago and has experienced cognitive changes since diagnosis. He was seen for neuropsychomitric testing in March 2018 and diagnosed with mild neuro cognitive disorder. The pt continues with occasional balance and visuospatial processing problems and recently completed LSVT-Big with Physical Therapy 1 yr ago and continues with PT 1x/wk. The pt has now successfully completed LSVT-Loud to improve voice/vocal loudess, as his voice had gotten softer over time, which had been of particular impact on his . Pt continues to deny tremor and swallow difficulties. He endorses loss of smell and taste, which impacts his interest in food and has lessened his consumption, and both he and his report decline in memory skills. The pt underwent Psychological Testing administered by Dr. Johnson of [facility] on 04/05/18 which indicated no major neurological dysfunction but more likely normal changes consistent with aging. Scores of Low Average or Extremely Low occurred in areas of memory on CLVT, WMS-IV, and CVLT-2 tests. It is possible that some of his scores, while falling within the average range, represent declines from his baseline and this would likely be due to his movement disorder. In his case there is the possiblity of high cognitive reserves obscuring true declines. There are no consistent indications of the frontosubcortical cognitive profile of person with Parkinson's disease or other movement disorders. The pt has an extended family history of Parkinson's disease , including a brother who developed PD in his 40s and in his 60s; a sister with PD and significant dementia; a sister who was told she had PD and is now in a wheelchair, although the diagnosis is not certain. This obviously increases the pt's concern about his own developing symptoms. He also reported a brother, sister and 2 cousins who have been diagnosed with [place] Syndrome, which may be related to toxic environmental exposures. Finally, the pt has a pacemaker and is on blood thinners. He has concerns of falling, secondary to balance issues, and of potentially hitting his head and developing bleeding in his brain. He wears a helmet when engaged in any physical activity in which he may experience a fall (e.g., bike riding, walking outdoors, etc. ). His concern is exaccerbated by having had a sister who fell and from a brain hemorrhage. Subjective Observations/Patient Presentation Pt arrived on time with exercise journal. Home practice is improving but not daily. Pt did not attend his mtg yesterday and so did not have opportunity to use name recall strategy discussed yesterday. He reported feeling disoriented and by his descriptions this appears to be related to orientation to time. He surmised the reduced daylight hours may impact this . Denied disorientation to place or activities. He informed that he started a new medication about 3 wks ago, and wonders if this may be a side effect. Chief Complaint(s) Cognitive,Voice Additional Areas of Concern Improve short-term and working memory Rehab Expectation/Goals: Patient Goals Increase vocal loudness to be heard by others, sandra ; Improve memory Patient Knowledge/Awareness of CANDY DIPPER Role Excellent in Treatment Objective Short Term Goals 1. The pt will identify memory strategies (e.g., visualization techniques, increasing awareness, etc.) in structured tasks to assist in recalling names, lists of up to 5 items, etc., necessary for functional activities. 2. Using memory strategies, the pt will recall names and lists of up to 5 items after a 3-minute or greater delay with 80% accuracy to increase functional memory skills. 3. Pt will complete LSVT-Loud voice exercises with avg loudness levels within normal conversational limits (65-75dB ) in 90% of opportunities. 4. Pt will perform LSVT-Loud HEP tasks no less than 5x/wk across 3 wks to promote long- term carryover and independence with meeting/ maintaining vocal loudness targets, as demonstrated by exercise journal completed by pt. Middle School Sports Coach Goals 1. Pt will maintain loudness levels with avg of 70 dB or greater in spontaneous conversation in 75% of opportunities. 2. Using memory strategies as needed, the pt will demonstrate delayed recall (>5 min) of 7-digit number sequences with 80% accuracy. 3. Given pictures or descriptions of persons in the pt's functional life, he will recall names with 80% accuracy to improve memory skills and maintain relationships. 4. The pt will report memory skills WFL, with use of internal/external strategies as needed. Treatment Activities Voice: Pt completed the following exercises: Sustained phonation, MPT = 33 sec; range = 18.6-33 sec, 4 of 7 trials were above 25 sec. Avg loudness 81 dB Pitch Glides, Range = 90-299 Hz, avg loudness 81.8 dB Functional Phrases, Avg loudness 75 dB Conversational loudness avg 63 dB, improved momentarily with v/v prompts but not sustained . Memory/Cognitive-Communication : Skilled counseling, education and feedback provided RE feelings of disorientation and progression of disease. Recommended the pt perform self-talk, either mentally or aloud, to increase attention and orientation to time and routine activities. Also encouraged pt to talk with his MD or Pharmacist regarding potential side effects of his new medication and alternative options if disorientation/confusion is noted. Pt agreeable to recommendations. He stated he did not feel he was in denial but finds thinking about the disease to be discouraging. Feedback provided that he is fighting the disease each time he exercises and uses strategies for voice and cognitive communication. Assessment Patient Response to Treatment Excellent Rehab Potential Good Impairments Identified Cognitive-Linguistic Skills, Memory - Short Term,Parkinson' s Disease,Vocal Quality Progress Towards Goals Slow Progress Assessment of Improvement Pt continues to demonstrate excellent vocal strength in structured tasks and sustained phonation at upper end of normal limits. However, conversational loudness consistently falls below normal range. The pt is only briefly responsive to prompts, stating that he feels his level is loud enough for the environment and conversation partner. In next session, this CANDY DIPPER will simulate hearing loss (the pt's has hearing loss) by wearing cotton in ears and/or will introduce background noise in the tx room to simulate other enviornments in order to promote increased conversationsl loudness from pt. The pt was receptive to feedback RE feelings of time disorientation and recommended strategies, as well as counseling regarding presence and progression of PD. Reviewed with Patient Goals,Progress Being Made,Home Exercise Program Patient/Caregiver Understanding Good Plan Amount of Therapy Recommended 2-3 Months Frequency of Treatment Twice a Week Comment 2x/wk for 4 wks, taper thereafter Length of Session 45 Minutes Treatment Emphasis Next Session External tools; names in phone list; Simulate listener hearing loss Therapeutic Contents Client Education,Cognitive- Linguistic Training,Home Exercise Program,Voice Training Provided Patient/Caregiver Instruction Home Exercise Program,Plan of Care,Questions/Concerns Therapy Recommendations Continue with Current Program
--- NOTE | 2019-02-28 13:59 | ST.OPTN ---
Visit Care Team Role Provider Type Carisa Hoffmann PA-C Primary Care Provider Advanced Parole Or Probation Officer Address: [address] [place] [address], [address], [place], [address] Natalia Awad Attending Provider Non-Staff Address: [address] [place] [address], [place], [address] NORMALIZER Treatment Note NORMALIZER Treatment Note Start: 10/04/18 16:57 Freq: Status: Active Protocol: Document 02/28/19 13:38 ALEXANDRA (Rec: 02/28/19 13:59 ALEXANDRA [id number]) Speech Pathology Treatment Note Session Time Visit Start Time 09:30 Visit Stop Time 10:15 Total Visit Minutes 45 Visit Information Visit Number 09/29 Plan of Care Dates 10/04/18 - 12/22/18 Insurance Information [employer] $40 co-pay Setting Treatment Setting Outpatient Care Visit Type Note Type Re-Evaluation Next Note Type Next Note Type Treatment Note General Information General Information This 78-yr-old male was diagnosed with Parkinson's disease ~2 yrs ago. He developed shuffling gait ~5 yrs ago and has experienced cognitive changes since diagnosis. He was seen for neuropsychomitric testing in March 2018 and diagnosed with mild neuro cognitive disorder. The pt continues with occasional balance and visuospatial processing problems and recently completed LSVT-Big with Physical Therapy 1 yr ago and continues with PT 1x/wk. The pt has now successfully completed LSVT-Loud to improve voice/vocal loudess, as his voice had gotten softer over time, which had been of particular impact on his . Pt continues to deny tremor and swallow difficulties. He endorses loss of smell and taste, which impacts his interest in food and has lessened his consumption, and both he and his report decline in memory skills. The pt underwent Psychological Testing administered by Dr. Johnson of [facility] on 04/05/18 which indicated no major neurological dysfunction but more likely normal changes consistent with aging. Scores of Low Average or Extremely Low occurred in areas of memory on CLVT, WMS-IV, and CVLT-2 tests. It is possible that some of his scores, while falling within the average range, represent declines from his baseline and this would likely be due to his movement disorder. In his case there is the possiblity of high cognitive reserves obscuring true declines. There are no consistent indications of the frontosubcortical cognitive profile of person with Parkinson's disease or other movement disorders. The pt has an extended family history of Parkinson's disease , including a brother who developed PD in his 40s and in his 60s; a sister with PD and significant dementia; a sister who was told she had PD and is now in a wheelchair, although the diagnosis is not certain. This obviously increases the pt's concern about his own developing symptoms. He also reported a brother, sister and 2 cousins who have been diagnosed with [place] Syndrome, which may be related to toxic environmental exposures. Finally, the pt has a pacemaker and is on blood thinners. He has concerns of falling, secondary to balance issues, and of potentially hitting his head and developing bleeding in his brain. He wears a helmet when engaged in any physical activity in which he may experience a fall (e.g., bike riding, walking outdoors, etc. ). His concern is exaccerbated by having had a sister who fell and from a brain hemorrhage. Subjective Observations/Patient Presentation Pt arrived on time. No new complaints. Reported reading in restoration without microphone yesterday. Stated he was mindful of loudness and felt he was heard well by caodaism. Chief Complaint(s) Cognitive,Voice Additional Areas of Concern Improve short-term and working memory Rehab Expectation/Goals: Patient Goals Increase vocal loudness to be heard by others, sandra ; Improve memory Patient Knowledge/Awareness of NORMALIZER Role Excellent in Treatment Objective Short Term Goals 1. The pt will identify memory strategies (e.g., visualization techniques, increasing awareness, etc.) in structured tasks to assist in recalling names, lists of up to 5 items, etc., necessary for functional activities. 2. Using memory strategies, the pt will recall names and lists of up to 5 items after a 3-minute or greater delay with 80% accuracy to increase functional memory skills. 3. Pt will complete LSVT-Loud voice exercises with avg loudness levels within normal conversational limits (65-75dB ) in 90% of opportunities. 4. Pt will perform LSVT-Loud HEP tasks no less than 5x/wk across 3 wks to promote long- term carryover and independence with meeting/ maintaining vocal loudness targets, as demonstrated by exercise journal completed by pt. Physician Ophthalmologist Goals 1. Pt will maintain loudness levels with avg of 70 dB or greater in spontaneous conversation in 75% of opportunities. 2. Using memory strategies as needed, the pt will demonstrate delayed recall (>5 min) of 7-digit number sequences with 80% accuracy. 3. Given pictures or descriptions of persons in the pt's functional life, he will recall names with 80% accuracy to improve memory skills and maintain relationships. 4. The pt will report memory skills WFL, with use of internal/external strategies as needed. Treatment Activities Skilled feedback provided to pt RE excellent ability to meet loudness targets during structured tasks and consistent regression to <NL in conversation. Pt attributed this to memory difficulties, stating he has trouble remembering to be loud when he is engaged in functional tasks and conversation. Recommended establishing external memory tools in pt's environment. Pt reported previous attempt using a rubber band around his wrist was not at all helpful. Discussed posting notes (i.e., written notes and/or symbol representing loudness) around home, car, on walking equipment (e.g., inside helmet , on cane handle). Pt was agreeable to this and agreed to initiating this today. During tx session, a written prompt was visible on table throughout the session, and the NORMALIZER simulated hearing loss by wearing cotton in her ears throughout the session. Voice: Pt completed the following exercises: Sustained phonation, MPT = 29. 62 sec; range = 21.3-29.62 sec . Avg loudness 82.75 dB Pitch Glides, Range = 82-376 Hz with good vocal quality, avg loudness 82.8 dB Functional Phrases, Avg loudness 73.7 dB. Pt performed from memory. Conversational loudness avg 65 .5 dB prior to NORMALIZER simulating hearing loss; 66.3 dB during HL simulation. Memory/Cognitive-Communication : Given 5 functional phrases used in voice exercises, the pt verbalized memory strategy (chronological order) he could employ to recite phrases from memory. He also used chunking strategy without directly verbalizing its use. Using strategies, the pt immediately recalled phrases x6 from memory with increasing speed over trials. He then recalled them again at end of session ( ~10 min later) with 100% accuracy, no prompts. Given a list of functional names the pt has difficulty remembering, collaborated with pt to identify associations and strategies for name recall . He demonstrated immediate and delayed (~5 min) recall of 4 names, members of a restoration family. Assessment Patient Response to Treatment Excellent Rehab Potential Good Impairments Identified Cognitive-Linguistic Skills, Memory - Short Term,Parkinson' s Disease,Vocal Quality Progress Towards Goals Slow Progress Assessment of Improvement Voice: The pt continues to be successful in structured tasks but revert to below normal loudness levels spontaneous conversation. He was responsive to feedback and acknowledged this tendency. He was receptive to recommendation for visual prompts in his functional environment. He was minimally responsive to visible written prompt during today's session, nor to the NORMALIZER's simulated hearing loss. However, although loudness levels were below targeted dB, he did produce intelligible speech and the NORMALIZER was able to hear and understand him throughout the session, even with cotton in her ears. Memory: Good progress made today in recalling functional phrases and 4 names. The pt was able to identify strategies that worked for him and benefited from rehearsal. Reviewed with Patient Goals,Progress Being Made,Home Exercise Program Patient/Caregiver Understanding Good Plan Amount of Therapy Recommended 2-3 Months Frequency of Treatment Twice a Week Comment 2x/wk for 4 wks, taper thereafter Length of Session 45 Minutes Treatment Emphasis Next Session External tools; names in phone list; Simulate listener hearing loss Therapeutic Contents Client Education,Cognitive- Linguistic Training,Home Exercise Program,Voice Training Provided Patient/Caregiver Instruction Home Exercise Program,Plan of Care,Questions/Concerns Therapy Recommendations Continue with Current Program
--- NOTE | 2019-03-07 17:36 | ST.OPTN ---
Visit Care Team Role Provider Type Carisa Hoffmann PA-C Primary Care Provider Advanced Baggage Security Checker Address: [address] [place] [address], [address], [place], [address] Natalia Awad Attending Provider Non-Staff Address: [address] [place] [address], [place], [address] RESULTS TECHNICIAN Treatment Note RESULTS TECHNICIAN Treatment Note Start: 10/04/18 16:57 Freq: Status: Active Protocol: Document 03/02/19 17:22 ALEXANDRA (Rec: 03/07/19 17:35 ALEXANDRA [id number]) Speech Pathology Treatment Note Session Time Visit Start Time 08:30 Visit Stop Time 09:15 Total Visit Minutes 45 Visit Information Visit Number 10/30 Plan of Care Dates 10/04/18 - 12/22/18 Insurance Information [employer] $40 co-pay Setting Treatment Setting Outpatient Care Visit Type Note Type Re-Evaluation Next Note Type Next Note Type Treatment Note General Information General Information This 78-yr-old male was diagnosed with Parkinson's disease ~2 yrs ago. He developed shuffling gait ~5 yrs ago and has experienced cognitive changes since diagnosis. He was seen for neuropsychomitric testing in March 2018 and diagnosed with mild neuro cognitive disorder. The pt continues with occasional balance and visuospatial processing problems and recently completed LSVT-Big with Physical Therapy 1 yr ago and continues with PT 1x/wk. The pt has now successfully completed LSVT-Loud to improve voice/vocal loudess, as his voice had gotten softer over time, which had been of particular impact on his . Pt continues to deny tremor and swallow difficulties. He endorses loss of smell and taste, which impacts his interest in food and has lessened his consumption, and both he and his report decline in memory skills. The pt underwent Psychological Testing administered by Dr. Johnson of [facility] on 04/05/18 which indicated no major neurological dysfunction but more likely normal changes consistent with aging. Scores of Low Average or Extremely Low occurred in areas of memory on CLVT, WMS-IV, and CVLT-2 tests. It is possible that some of his scores, while falling within the average range, represent declines from his baseline and this would likely be due to his movement disorder. In his case there is the possiblity of high cognitive reserves obscuring true declines. There are no consistent indications of the frontosubcortical cognitive profile of person with Parkinson's disease or other movement disorders. The pt has an extended family history of Parkinson's disease , including a brother who developed PD in his 40s and in his 60s; a sister with PD and significant dementia; a sister who was told she had PD and is now in a wheelchair, although the diagnosis is not certain. This obviously increases the pt's concern about his own developing symptoms. He also reported a brother, sister and 2 cousins who have been diagnosed with [place] Syndrome, which may be related to toxic environmental exposures. Finally, the pt has a pacemaker and is on blood thinners. He has concerns of falling, secondary to balance issues, and of potentially hitting his head and developing bleeding in his brain. He wears a helmet when engaged in any physical activity in which he may experience a fall (e.g., bike riding, walking outdoors, etc. ). His concern is exaccerbated by having had a sister who fell and from a brain hemorrhage. Subjective Observations/Patient Presentation Pt arrived on time. Pt reported a change in his medication schedule with MD approval to reduce side effects of vivid dreams, which has improved his sleep. Chief Complaint(s) Cognitive,Voice Additional Areas of Concern Improve short-term and working memory Rehab Expectation/Goals: Patient Goals Increase vocal loudness to be heard by others, sandra ; Improve memory Patient Knowledge/Awareness of RESULTS TECHNICIAN Role Excellent in Treatment Objective Short Term Goals 1. The pt will identify memory strategies (e.g., visualization techniques, increasing awareness, etc.) in structured tasks to assist in recalling names, lists of up to 5 items, etc., necessary for functional activities. 2. Using memory strategies, the pt will recall names and lists of up to 5 items after a 3-minute or greater delay with 80% accuracy to increase functional memory skills. 3. Pt will complete LSVT-Loud voice exercises with avg loudness levels within normal conversational limits (65-75dB ) in 90% of opportunities. 4. Pt will perform LSVT-Loud HEP tasks no less than 5x/wk across 3 wks to promote long- term carryover and independence with meeting/ maintaining vocal loudness targets, as demonstrated by exercise journal completed by pt. Guide Alpine Goals 1. Pt will maintain loudness levels with avg of 70 dB or greater in spontaneous conversation in 75% of opportunities. 2. Using memory strategies as needed, the pt will demonstrate delayed recall (>5 min) of 7-digit number sequences with 80% accuracy. 3. Given pictures or descriptions of persons in the pt's functional life, he will recall names with 80% accuracy to improve memory skills and maintain relationships. 4. The pt will report memory skills WFL, with use of internal/external strategies as needed. Treatment Activities Skilled feedback provided to pt RE excellent ability to meet loudness targets during structured tasks and consistent regression to <NL in conversation. RESULTS TECHNICIAN simulated hearing loss by wearing ear plugs throughout the session. When no significant improvement of vocal loudness resulted, background noise was added, which prompted the pt to increase loudness levels in conversation to WNL. Voice: Conversational loudness avg 64.3 dB with RESULTS TECHNICIAN wearing ear plugs; increased to 71.6 dB with background noise added . Memory/Cognitive-Communication : Given descriptions of people familiar to the pt whom he has identified as having names he struggles to remember, the pt recalled names with 86% acc, demonstrating benefit from strategies of association and repetition. Assessment Patient Response to Treatment Excellent Rehab Potential Good Impairments Identified Cognitive-Linguistic Skills, Memory - Short Term,Parkinson' s Disease,Vocal Quality Progress Towards Goals Slow Progress Assessment of Improvement Voice: The pt was in agreement to use a louder than necessary voice (recommended increase ~3 dB) for therapeutic training; however, only occasional increases were observed and that was in response to the clinician's verbal prompts. He was not resoponsive to the clinician wearing ear plugs, although loudness levels were adequate for the clinician to hear him even when simulating hearing loss. The pt did respond consistently and sufficiently to presence of added background noise, demonstrating appropriate responsiveness to environmental demands. Memory: Poor recall to use increased vocal loudness. Good progress made today in recalling functional names. The pt was able to identify strategies that worked for him and benefited from rehearsal. Reviewed with Patient Goals,Progress Being Made,Home Exercise Program Patient/Caregiver Understanding Good Plan Amount of Therapy Recommended 2-3 Months Frequency of Treatment Twice a Week Length of Session 45 Minutes Treatment Emphasis Next Session External tools; names in phone list; Simulate listener hearing loss Therapeutic Contents Client Education,Cognitive- Linguistic Training,Home Exercise Program,Voice Training Provided Patient/Caregiver Instruction Home Exercise Program,Plan of Care,Questions/Concerns Therapy Recommendations Continue with Current Program
--- NOTE | 2019-03-10 11:57 | ST.OPTN ---
Visit Care Team Role Provider Type Carisa Hoffmann PA-C Primary Care Provider Advanced Senior Human Resources Representative Address: [address] [place] [address], [address], [place], [address] Natalia Awad Attending Provider Non-Staff Address: [address] [place] [address], [place], [address] PATIENT INTAKE REPRESENTATIVE Treatment Note PATIENT INTAKE REPRESENTATIVE Treatment Note Start: 10/04/18 16:57 Freq: Status: Active Protocol: Document 03/09/19 11:31 ALEXANDRA (Rec: 03/10/19 11:57 ALEXANDRA [email or web address]) Speech Pathology Treatment Note Session Time Visit Start Time 08:30 Visit Stop Time 09:20 Total Visit Minutes 50 Visit Information Visit Number 11/30 Plan of Care Dates 10/04/18 - 12/22/18 Insurance Information [facility] $40 co-pay Setting Treatment Setting Outpatient Care Visit Type Note Type Treatment Note Next Note Type Next Note Type Progress Note General Information General Information This 78-yr-old male was diagnosed with Parkinson's disease ~2 yrs ago. He developed shuffling gait ~5 yrs ago and has experienced cognitive changes since diagnosis. He was seen for neuropsychomitric testing in March 2018 and diagnosed with mild neuro cognitive disorder. The pt continues with occasional balance and visuospatial processing problems and recently completed LSVT-Big with Physical Therapy 1 yr ago and continues with PT 1x/wk. The pt has now successfully completed LSVT-Loud to improve voice/vocal loudess, as his voice had gotten softer over time, which had been of particular impact on his . Pt continues to deny tremor and swallow difficulties. He endorses loss of smell and taste, which impacts his interest in food and has lessened his consumption, and both he and his report decline in memory skills. The pt underwent Psychological Testing administered by Dr. Johnson of [facility] on 04/05/18 which indicated no major neurological dysfunction but more likely normal changes consistent with aging. Scores of Low Average or Extremely Low occurred in areas of memory on CLVT, WMS-IV, and CVLT-2 tests. It is possible that some of his scores, while falling within the average range, represent declines from his baseline and this would likely be due to his movement disorder. In his case there is the possiblity of high cognitive reserves obscuring true declines. There are no consistent indications of the frontosubcortical cognitive profile of person with Parkinson's disease or other movement disorders. The pt has an extended family history of Parkinson's disease , including a brother who developed PD in his 40s and in his 60s; a sister with PD and significant dementia; a sister who was told she had PD and is now in a wheelchair, although the diagnosis is not certain. This obviously increases the pt's concern about his own developing symptoms. He also reported a brother, sister and 2 cousins who have been diagnosed with [place] Syndrome, which may be related to toxic environmental exposures. Finally, the pt has a pacemaker and is on blood thinners. He has concerns of falling, secondary to balance issues, and of potentially hitting his head and developing bleeding in his brain. He wears a helmet when engaged in any physical activity in which he may experience a fall (e.g., bike riding, walking outdoors, etc. ). His concern is exaccerbated by having had a sister who fell and from a brain hemorrhage. Subjective Observations/Patient Presentation Pt arrived on time. Pt expressed ongoing confusion with maintaining/remembering his daily schedule and frustration with phone. He reported having found research in Journal of Communication Disorders RE a device called SpeechVive that amplifies ambient noise to person's with PD to promote increased vocal loudness. Chief Complaint(s) Cognitive,Voice Additional Areas of Concern Improve short-term and working memory Rehab Expectation/Goals: Patient Goals Increase vocal loudness to be heard by others, sandra ; Improve memory Patient Knowledge/Awareness of PATIENT INTAKE REPRESENTATIVE Role Excellent in Treatment Objective Short Term Goals 1. The pt will identify memory strategies (e.g., visualization techniques, increasing awareness, etc.) in structured tasks to assist in recalling names, lists of up to 5 items, etc., necessary for functional activities. 2. Using memory strategies, the pt will recall names and lists of up to 5 items after a 3-minute or greater delay with 80% accuracy to increase functional memory skills. 3. Pt will complete LSVT-Loud voice exercises with avg loudness levels within normal conversational limits (65-75dB ) in 90% of opportunities. 4. Pt will perform LSVT-Loud HEP tasks no less than 5x/wk across 3 wks to promote long- term carryover and independence with meeting/ maintaining vocal loudness targets, as demonstrated by exercise journal completed by pt. Half-Way Goals 1. Pt will maintain loudness levels with avg of 70 dB or greater in spontaneous conversation in 75% of opportunities. 2. Using memory strategies as needed, the pt will demonstrate delayed recall (>5 min) of 7-digit number sequences with 80% accuracy. 3. Given pictures or descriptions of persons in the pt's functional life, he will recall names with 80% accuracy to improve memory skills and maintain relationships. 4. The pt will report memory skills WFL, with use of internal/external strategies as needed. Treatment Activities Skilled feedback provided to pt RE his excellent ability to meet loudness targets during structured tasks and consistent regression to <NL in conversation, improved with increased environmental noise . Feedback also provided RE SpeechVive device, which is not recommended for this pt given that he already wears hearing aids and the device is worn in ears. Pt again expressed frustration with memory and felt that impacted his ability to maintain target loudness levels. He reports having placed external reminders but finding little benefit from them yet. Pt maintained loudness levels of 66-67 dB in spontaneous conversation in quiet environment, improved as compared to recent previous sessions. Given descriptions of familiar people, he recalled names with 100% accuracy, min-mod cues. Initiated training of pt's phone calendar, including navigation between different views (daily, weekly, monthly) and setting of alerts for appts. After instruction and demonstration, the pt created a new task and set alerts for it and for 5 other existing appts with 80% acc, several errors resulting from accidentally pressing the wrong button or other device sensitivities. Accuracy of tapping items improved with use of stylus. The pt was easily frustrated by his phone 's sensitivity levels, which fequently took him to unintended screens and made tasks increasingly time consuming. The pt would benefit from further training on functional phone use and was recommended to contact [facility], where they provide such training. Training in calendar use will continue to be targeted in tx to improve memory and orientation to events and time. Assessment Patient Response to Treatment Good Rehab Potential Good Impairments Identified Cognitive-Linguistic Skills, Memory - Short Term,Parkinson' s Disease,Vocal Quality Progress Towards Goals Slow Progress Assessment of Improvement The pt exhibited mildly improved vocal loudness in today's session, possibly d/t conversation related to the topic. He also demonstrated improved recall of names of familiar people based on verbal descriptions, requiring less time and fewer prompts. He exhibited significant impatience and frustration in using his phone, although he did demonstrate good recall of steps to accessing and setting appts and setting alerts to appts. This needs reinforcement. The pt was receptive to recommendation to seek additional help from local community resources. Reviewed with Patient Goals,Progress Being Made,Home Exercise Program Patient/Caregiver Understanding Good Plan Amount of Therapy Recommended 2-3 Months Frequency of Treatment Twice a Week Length of Session 45 Minutes Treatment Emphasis Next Session External tools; names in phone list; Simulate listener hearing loss Therapeutic Contents Client Education,Cognitive- Linguistic Training,Home Exercise Program,Voice Training Provided Patient/Caregiver Instruction Home Exercise Program,Plan of Care,Questions/Concerns Therapy Recommendations Continue with Current Program
--- NOTE | 2019-03-22 15:24 | ST.OPTN ---
Visit Care Team Role Provider Type Carisa Hoffmann PA-C Primary Care Provider Advanced Industrial Automation Engineer Address: [address] [place] [address], [address], [place], [address] Natalia Awad Attending Provider Non-Staff Address: [address] [place] [address], [place], [address] OPERATIONS OFFICER Treatment Note OPERATIONS OFFICER Treatment Note Start: 10/04/18 16:57 Freq: Status: Active Protocol: Document 03/22/19 08:31 ALEXANDRA (Rec: 03/22/19 08:32 ALEXANDRA [email or web address]) Speech Pathology Treatment Note Session Time Visit Start Time 08:30 Visit Stop Time 09:20 Total Visit Minutes 45 Visit Information Visit Number 12/30 Plan of Care Dates 03/22/19 - 06/14/19 Insurance Information [employer] $40 co-pay Setting Treatment Setting Outpatient Care Visit Type Note Type Progress Note Next Note Type Next Note Type Treatment Note General Information General Information This 78-yr-old male was diagnosed with Parkinson's disease ~2 yrs ago. He developed shuffling gait ~5 yrs ago and has experienced cognitive changes since diagnosis. He was seen for neuropsychomitric testing in March 2018 and diagnosed with mild neuro cognitive disorder. The pt continues with occasional balance and visuospatial processing problems and recently completed LSVT-Big with Physical Therapy 1 yr ago and continues with PT 1x/wk. The pt has now successfully completed LSVT-Loud to improve voice/vocal loudess, as his voice had gotten softer over time, which had been of particular impact on his . Pt continues to deny tremor and swallow difficulties. He endorses loss of smell and taste, which impacts his interest in food and has lessened his consumption, and both he and his report decline in memory skills. The pt underwent Psychological Testing administered by Dr. Johnson of [facility] on 04/05/18 which indicated no major neurological dysfunction but more likely normal changes consistent with aging. Scores of Low Average or Extremely Low occurred in areas of memory on CLVT, WMS-IV, and CVLT-2 tests. It is possible that some of his scores, while falling within the average range, represent declines from his baseline and this would likely be due to his movement disorder. In his case there is the possiblity of high cognitive reserves obscuring true declines. There are no consistent indications of the frontosubcortical cognitive profile of person with Parkinson's disease or other movement disorders. The pt has an extended family history of Parkinson's disease , including a brother who developed PD in his 40s and in his 60s; a sister with PD and significant dementia; a sister who was told she had PD and is now in a wheelchair, although the diagnosis is not certain. This obviously increases the pt's concern about his own developing symptoms. He also reported a brother, sister and 2 cousins who have been diagnosed with [place] Syndrome, which may be related to toxic environmental exposures. Finally, the pt has a pacemaker and is on blood thinners. He has concerns of falling, secondary to balance issues, and of potentially hitting his head and developing bleeding in his brain. He wears a helmet when engaged in any physical activity in which he may experience a fall (e.g., bike riding, walking outdoors, etc. ). His concern is exaccerbated by having had a sister who fell and from a brain hemorrhage. Subjective Observations/Patient Presentation Pt arrived on time. He reported not having slept well last night, and also informed of 2 articles related to PD that he had discovered and wished to discuss. He visited his sister, who has advanced PD, over the holiday and observed how little she was able to communicate, both in terms of reduced speech loudness/intelligibility and flat affect. He expressed gratitude for his own access to intervention (PT and ST) and recognized importance of continued home practice. He reported some improvement in recalling individuals' names in the last 2 weeks and continues to use a list of names on his phone for reference and practice. He stated he's having difficulty identifying associations with people's names. Chief Complaint(s) Cognitive,Voice Additional Areas of Concern Improve short-term and working memory Rehab Expectation/Goals: Patient Goals Increase vocal loudness to be heard by others, sandra ; Improve memory Patient Knowledge/Awareness of OPERATIONS OFFICER Role Excellent in Treatment Objective Short Term Goals 1. The pt will identify memory strategies (e.g., visualization techniques, increasing awareness, etc.) in structured tasks to assist in recalling names, lists of up to 5 items, etc., necessary for functional activities. 2. Using memory strategies, the pt will recall names and lists of up to 5 items after a 3-minute or greater delay with 80% accuracy to increase functional memory skills. 3. Pt will complete LSVT-Loud voice exercises with avg loudness levels within normal conversational limits (65-75dB ) in 90% of opportunities. 4. Pt will perform LSVT-Loud HEP tasks no less than 5x/wk across 3 wks to promote long- term carryover and independence with meeting/ maintaining vocal loudness targets, as demonstrated by exercise journal completed by pt. Shelter Goals 1. Pt will maintain loudness levels with avg of 70 dB or greater in spontaneous conversation in 75% of opportunities. 2. Using memory strategies as needed, the pt will demonstrate delayed recall (>5 min) of 7-digit number sequences with 80% accuracy. 3. Given pictures or descriptions of persons in the pt's functional life, he will recall names with 80% accuracy to improve memory skills and maintain relationships. 4. The pt will report memory skills WFL, with use of internal/external strategies as needed. Treatment Activities Discussed the articles the pt had questions about, and all questions were answered to the best of my ability and pt was advised to also discuss with MD. Voice: Pt completed LSVT-Loud exercises. MPT = 27.74, avg loudness 82 dB (WNL). Pitch range = 96-300 Hz (WNL). He recited functional phrases with avg loudness of 71.6 dB ( WNL). Conversational Loudness = 66.6 dB avg across 5 trials (range = 63-74 dB). These are within functional to normal loudness levels for this quiet environment and listener. Memory: The pt recalled 4/5 functional phrases independently, and the 5th with a verbal prompt from OPERATIONS OFFICER. The pt was able to verbalize the memory strategies he used to recall items. Skilled feedback was provided. He recalled names of 3 new persons he had met recently and provided descriptions of them. Using one of these individuals and with mod verbal prompts, the pt identified associations that may be useful in recalling the name. Skilled feedback was provided and the pt was reminded of the need for rehearsal to strengthen the effectiveness of the associations. He verbalized understanding and agreement. Assessment Patient Response to Treatment Good Rehab Potential Good Impairments Identified Cognitive-Linguistic Skills, Memory - Short Term,Parkinson' s Disease,Vocal Quality Progress Towards Goals Slow Progress Assessment of Overall Progress Improving Assessment of Improvement Over these last 10 sessions, the pt has maintained consistent ability to meet loudness targets and sustained phonation in structured tasks , demonstrating good respiratory muscle strength necessary for breath support for voice and speech, as well as ability to produce adequate vocal loudness when necessary . Loudness of voice has varied in unstructured conversation, often falling below normal limits; however, he has remained 100% intelligible to this familiar listener and has adapted loudness levels appropriately based on environmental demands. He reports successfully speaking in public with and without microphone assistance. He has also received praise from others for significantly improving his loudness levels. Cognitive-Linguistic skills: The pt continues with mild- moderate short-term and working memory deficits, particularly in the areas of recalling names, numbers, and events/appointments. Using a memory notebook tool and association and repetition strategies, he is slowly improving his ability to recall names. He effectively uses and relies upon written lists and his daily calendar to complete related functional tasks. He continues to be frustrated with these deficits and demonstrates medical necessity to continue skilled intervention in order to maintain independence and improve ability to perform daily tasks. The pt exhibits excellent awareness of deficits and educates himself well on aspects of Parkinson's disease . While often frustrated with memory impairments, particularly, he remains motivated to attend therapy and make improvements. Reviewed with Patient Goals,Progress Being Made,Home Exercise Program Patient/Caregiver Understanding Good Plan Amount of Therapy Recommended 2-3 Months Frequency of Treatment Once a Week Length of Session 45 Minutes Treatment Emphasis Next Session External tools; names in phone list; Simulate listener hearing loss Therapeutic Contents Client Education,Cognitive- Linguistic Training,Home Exercise Program,Voice Training Provided Patient/Caregiver Instruction Home Exercise Program,Plan of Care,Questions/Concerns Therapy Recommendations Continue with Current Program
--- NOTE | 2019-04-12 10:43 | ST.OPTN ---
Visit Care Team Role Provider Type Carisa Hoffmann PA-C Primary Care Provider Advanced Chauffeur Address: [address] [place] [address], [address], [place], [address] Natalia Awad Attending Provider Non-Staff Address: [address] [place] [address], [place], [address] CUSTOMER PRICING MANAGER Treatment Note CUSTOMER PRICING MANAGER Treatment Note Start: 10/04/18 16:57 Freq: Status: Active Protocol: Document 03/29/19 18:27 ALEXANDRA (Rec: 03/30/19 18:28 ALEXANDRA [email or web address]) Speech Pathology Treatment Note Session Time Visit Start Time 09:37 Visit Stop Time 10:22 Total Visit Minutes 45 Visit Information Visit Number 04/01 Plan of Care Dates 03/22/19 - 06/14/19 Insurance Information [facility] $40 co-pay Setting Treatment Setting Outpatient Care Visit Type Note Type Progress Note Next Note Type Next Note Type Treatment Note General Information General Information This 78-yr-old male was diagnosed with Parkinson's disease ~2 yrs ago. He developed shuffling gait ~5 yrs ago and has experienced cognitive changes since diagnosis. He was seen for neuropsychomitric testing in March 2018 and diagnosed with mild neuro cognitive disorder. The pt continues with occasional balance and visuospatial processing problems and recently completed LSVT-Big with Physical Therapy 1 yr ago and continues with PT 1x/wk. The pt has now successfully completed LSVT-Loud to improve voice/vocal loudess, as his voice had gotten softer over time, which had been of particular impact on his . Pt continues to deny tremor and swallow difficulties. He endorses loss of smell and taste, which impacts his interest in food and has lessened his consumption, and both he and his report decline in memory skills. The pt underwent Psychological Testing administered by Dr. Johnson of [facility] on 04/05/18 which indicated no major neurological dysfunction but more likely normal changes consistent with aging. Scores of Low Average or Extremely Low occurred in areas of memory on CLVT, WMS-IV, and CVLT-2 tests. It is possible that some of his scores, while falling within the average range, represent declines from his baseline and this would likely be due to his movement disorder. In his case there is the possiblity of high cognitive reserves obscuring true declines. There are no consistent indications of the frontosubcortical cognitive profile of person with Parkinson's disease or other movement disorders. The pt has an extended family history of Parkinson's disease , including a brother who developed PD in his 40s and in his 60s; a sister with PD and significant dementia; a sister who was told she had PD and is now in a wheelchair, although the diagnosis is not certain. This obviously increases the pt's concern about his own developing symptoms. He also reported a brother, sister and 2 cousins who have been diagnosed with [place] Syndrome, which may be related to toxic environmental exposures. Finally, the pt has a pacemaker and is on blood thinners. He has concerns of falling, secondary to balance issues, and of potentially hitting his head and developing bleeding in his brain. He wears a helmet when engaged in any physical activity in which he may experience a fall (e.g., bike riding, walking outdoors, etc. ). His concern is exaccerbated by having had a sister who fell and from a brain hemorrhage. Subjective Observations/Patient Presentation Pt arrived on time. Reported feeling better about name recall and difficulty recalling appointments, which he tracks on his wall calendar at home. Chief Complaint(s) Cognitive,Voice Additional Areas of Concern Improve short-term and working memory Rehab Expectation/Goals: Patient Goals Increase vocal loudness to be heard by others, sandra ; Improve memory Patient Knowledge/Awareness of CUSTOMER PRICING MANAGER Role Excellent in Treatment Objective Short Term Goals 1. The pt will identify memory strategies (e.g., visualization techniques, increasing awareness, etc.) in structured tasks to assist in recalling names, lists of up to 5 items, etc., necessary for functional activities. 2. Using memory strategies, the pt will recall names and lists of up to 5 items after a 3-minute or greater delay with 80% accuracy to increase functional memory skills. 3. Pt will complete LSVT-Loud voice exercises with avg loudness levels within normal conversational limits (65-75dB ) in 90% of opportunities. 4. Pt will perform LSVT-Loud HEP tasks no less than 5x/wk across 3 wks to promote long- term carryover and independence with meeting/ maintaining vocal loudness targets, as demonstrated by exercise journal completed by pt. Custodial Goals 1. Pt will maintain loudness levels with avg of 70 dB or greater in spontaneous conversation in 75% of opportunities. 2. Using memory strategies as needed, the pt will demonstrate delayed recall (>5 min) of 7-digit number sequences with 80% accuracy. 3. Given pictures or descriptions of persons in the pt's functional life, he will recall names with 80% accuracy to improve memory skills and maintain relationships. 4. The pt will report memory skills WFL, with use of internal/external strategies as needed. Treatment Activities Name Recall: Given descriptions of familiar people, the pt named them with 82% acc, min cues. Calendar use/recall of events: Collaborated with pt RE external and internal strategies to recall appointments and daily activities. Recommended pt review calendar at morning and evening to reflect on the current and next day's activities. Trained pt in numbering activities per day, chunking them by category/ location, and visualization techniques to increase recall. With CUSTOMER PRICING MANAGER guidance, the pt identified 6 activities to happen today, chunked them by location (3 in [place], 3 in [place]), and visualized his day traveling from [place] to [place] and back to [place] to accomplish each task. Assessment Patient Response to Treatment Good Rehab Potential Good Impairments Identified Cognitive-Linguistic Skills, Memory - Short Term,Parkinson' s Disease,Vocal Quality Progress Towards Goals Slow Progress Assessment of Overall Progress Improving Assessment of Improvement The pt continues to make good progress recalling names of individuals significant to him . He expressed frustration with difficulty recalling daily activities and appointments and was receptive to feedback and training. Needs reinforcement. Reviewed with Patient Goals,Progress Being Made,Home Exercise Program Patient/Caregiver Understanding Good Plan Amount of Therapy Recommended 2-3 Months Frequency of Treatment Once a Week Length of Session 45 Minutes Treatment Emphasis Next Session Name and daily events recall Therapeutic Contents Client Education,Cognitive- Linguistic Training,Home Exercise Program,Voice Training Provided Patient/Caregiver Instruction Home Exercise Program,Plan of Care,Questions/Concerns Therapy Recommendations Continue with Current Program
--- NOTE | 2019-04-12 10:54 | ST.OPTN ---
Visit Care Team Role Provider Type Carisa Hoffmann PA-C Primary Care Provider Advanced Statuary Painter Address: [address] [place] [address], [address], [place], [address] Natalia Awad Attending Provider Non-Staff Address: [address] [place] [address], [place], [address] VITREO RETINAL SURGEON Treatment Note VITREO RETINAL SURGEON Treatment Note Start: 10/04/18 16:57 Freq: Status: Active Protocol: Document 04/12/19 10:45 ALEXANDRA (Rec: 04/12/19 10:53 ALEXANDRA [email or web address]) Speech Pathology Treatment Note Session Time Visit Start Time 08:30 Visit Stop Time 09:15 Total Visit Minutes 45 Visit Information Visit Number 05/02 Plan of Care Dates 03/22/19 - 06/14/19 Insurance Information [facility] $40 co-pay Setting Treatment Setting Outpatient Care Visit Type Note Type Progress Note Next Note Type Next Note Type Treatment Note General Information General Information This 78-yr-old male was diagnosed with Parkinson's disease ~2 yrs ago. He developed shuffling gait ~5 yrs ago and has experienced cognitive changes since diagnosis. He was seen for neuropsychomitric testing in March 2018 and diagnosed with mild neuro cognitive disorder. The pt continues with occasional balance and visuospatial processing problems and recently completed LSVT-Big with Physical Therapy 1 yr ago and continues with PT 1x/wk. The pt has now successfully completed LSVT-Loud to improve voice/vocal loudess, as his voice had gotten softer over time, which had been of particular impact on his . Pt continues to deny tremor and swallow difficulties. He endorses loss of smell and taste, which impacts his interest in food and has lessened his consumption, and both he and his report decline in memory skills. The pt underwent Psychological Testing administered by Dr. Johnson of [facility] on 04/05/18 which indicated no major neurological dysfunction but more likely normal changes consistent with aging. Scores of Low Average or Extremely Low occurred in areas of memory on CLVT, WMS-IV, and CVLT-2 tests. It is possible that some of his scores, while falling within the average range, represent declines from his baseline and this would likely be due to his movement disorder. In his case there is the possiblity of high cognitive reserves obscuring true declines. There are no consistent indications of the frontosubcortical cognitive profile of person with Parkinson's disease or other movement disorders. The pt has an extended family history of Parkinson's disease , including a brother who developed PD in his 40s and in his 60s; a sister with PD and significant dementia; a sister who was told she had PD and is now in a wheelchair, although the diagnosis is not certain. This obviously increases the pt's concern about his own developing symptoms. He also reported a brother, sister and 2 cousins who have been diagnosed with [place] Syndrome, which may be related to toxic environmental exposures. Finally, the pt has a pacemaker and is on blood thinners. He has concerns of falling, secondary to balance issues, and of potentially hitting his head and developing bleeding in his brain. He wears a helmet when engaged in any physical activity in which he may experience a fall (e.g., bike riding, walking outdoors, etc. ). His concern is exaccerbated by having had a sister who fell and from a brain hemorrhage. Subjective Observations/Patient Presentation Pt arrived on time. Reported increased difficulty recalling names. Stated he has not reviewed them as much in the last 2 wks and has felt off the past 3 or more weeks, which he wonders might be interfering with memory skills . Chief Complaint(s) Cognitive,Voice Additional Areas of Concern Improve short-term and working memory Rehab Expectation/Goals: Patient Goals Increase vocal loudness to be heard by others, sandra ; Improve memory Patient Knowledge/Awareness of VITREO RETINAL SURGEON Role Excellent in Treatment Objective Short Term Goals 1. The pt will identify memory strategies (e.g., visualization techniques, increasing awareness, etc.) in structured tasks to assist in recalling names, lists of up to 5 items, etc., necessary for functional activities. 2. Using memory strategies, the pt will recall names and lists of up to 5 items after a 3-minute or greater delay with 80% accuracy to increase functional memory skills. 3. Pt will complete LSVT-Loud voice exercises with avg loudness levels within normal conversational limits (65-75dB ) in 90% of opportunities. 4. Pt will perform LSVT-Loud HEP tasks no less than 5x/wk across 3 wks to promote long- term carryover and independence with meeting/ maintaining vocal loudness targets, as demonstrated by exercise journal completed by pt. Advertising Consultant Goals 1. Pt will maintain loudness levels with avg of 70 dB or greater in spontaneous conversation in 75% of opportunities. 2. Using memory strategies as needed, the pt will demonstrate delayed recall (>5 min) of 7-digit number sequences with 80% accuracy. 3. Given pictures or descriptions of persons in the pt's functional life, he will recall names with 80% accuracy to improve memory skills and maintain relationships. 4. The pt will report memory skills WFL, with use of internal/external strategies as needed. Treatment Activities Name Recall: Given descriptions of familiar people, the pt named them with 69% acc, mod-max verbal cues. Created worksheet for home practice and reviewed with pt. Education provided RE principles of neuroplasticity: use it or lose it; use it and improve it; saliency matters. The pt agreed that consistent review of names is necessary for his recall and for carryover. Assessment Patient Response to Treatment Good Rehab Potential Good Impairments Identified Cognitive-Linguistic Skills, Memory - Short Term,Parkinson' s Disease,Vocal Quality Progress Towards Goals Slow Progress Assessment of Overall Progress Improving Assessment of Improvement The pt demonstrated significant decline in name recall as compared to recent sessions. Overall physical and emotional health may be contributors. Consistent ongoing home practice appears to be a requirement for carryover of recall for this pt. A reusable worksheet was developed for him both for pracitice (repetition) and to created a visual aid that he may be able to visualize in the functional setting. Will f /u over next sessions to determine usefulness and/or additional such aids. Reviewed with Patient Goals,Progress Being Made,Home Exercise Program Patient/Caregiver Understanding Good Plan Amount of Therapy Recommended 2-3 Months Frequency of Treatment Once a Week Length of Session 45 Minutes Treatment Emphasis Next Session Name and daily events recall Therapeutic Contents Client Education,Cognitive- Linguistic Training,Home Exercise Program,Voice Training Provided Patient/Caregiver Instruction Home Exercise Program,Plan of Care,Questions/Concerns Therapy Recommendations Continue with Current Program
--- NOTE | 2019-04-20 17:55 | ST.OPTN ---
Visit Care Team Role Provider Type Carisa Hoffmann PA-C Primary Care Provider Advanced Baggage Porter Address: [address] [place] [address], [address], [place], [address] Natalia Awad Attending Provider Non-Staff Address: [address] [place] [address], [place], [address] OB SCRUB TECH Treatment Note OB SCRUB TECH Treatment Note Start: 10/04/18 16:57 Freq: Status: Active Protocol: Document 04/20/19 17:49 ALEXANDRA (Rec: 04/20/19 17:55 ALEXANDRA [email or web address]) Speech Pathology Treatment Note Session Time Visit Start Time 08:30 Visit Stop Time 09:15 Total Visit Minutes 45 Visit Information Visit Number 05/30 Plan of Care Dates 03/22/19 - 06/14/19 Insurance Information [employer] $40 co-pay Setting Treatment Setting Outpatient Care Visit Type Note Type Progress Note Next Note Type Next Note Type Treatment Note General Information General Information This 78-yr-old male was diagnosed with Parkinson's disease ~2 yrs ago. He developed shuffling gait ~5 yrs ago and has experienced cognitive changes since diagnosis. He was seen for neuropsychomitric testing in March 2018 and diagnosed with mild neuro cognitive disorder. The pt continues with occasional balance and visuospatial processing problems and recently completed LSVT-Big with Physical Therapy 1 yr ago and continues with PT 1x/wk. The pt has now successfully completed LSVT-Loud to improve voice/vocal loudess, as his voice had gotten softer over time, which had been of particular impact on his . Pt continues to deny tremor and swallow difficulties. He endorses loss of smell and taste, which impacts his interest in food and has lessened his consumption, and both he and his report decline in memory skills. The pt underwent Psychological Testing administered by Dr. Johnson of [facility] on 04/05/18 which indicated no major neurological dysfunction but more likely normal changes consistent with aging. Scores of Low Average or Extremely Low occurred in areas of memory on CLVT, WMS-IV, and CVLT-2 tests. It is possible that some of his scores, while falling within the average range, represent declines from his baseline and this would likely be due to his movement disorder. In his case there is the possiblity of high cognitive reserves obscuring true declines. There are no consistent indications of the frontosubcortical cognitive profile of person with Parkinson's disease or other movement disorders. The pt has an extended family history of Parkinson's disease , including a brother who developed PD in his 40s and in his 60s; a sister with PD and significant dementia; a sister who was told she had PD and is now in a wheelchair, although the diagnosis is not certain. This obviously increases the pt's concern about his own developing symptoms. He also reported a brother, sister and 2 cousins who have been diagnosed with [place] Syndrome, which may be related to toxic environmental exposures. Finally, the pt has a pacemaker and is on blood thinners. He has concerns of falling, secondary to balance issues, and of potentially hitting his head and developing bleeding in his brain. He wears a helmet when engaged in any physical activity in which he may experience a fall (e.g., bike riding, walking outdoors, etc. ). His concern is exaccerbated by having had a sister who fell and from a brain hemorrhage. Subjective Observations/Patient Presentation Pt arrived on time. Reported improved ability to recall names of people at [employer] after reviewing and practicing over the week. Chief Complaint(s) Cognitive,Voice Additional Areas of Concern Improve short-term and working memory Rehab Expectation/Goals: Patient Goals Increase vocal loudness to be heard by others, sandra ; Improve memory Patient Knowledge/Awareness of OB SCRUB TECH Role Excellent in Treatment Objective Short Term Goals 1. The pt will identify memory strategies (e.g., visualization techniques, increasing awareness, etc.) in structured tasks to assist in recalling names, lists of up to 5 items, etc., necessary for functional activities. 2. Using memory strategies, the pt will recall names and lists of up to 5 items after a 3-minute or greater delay with 80% accuracy to increase functional memory skills. 3. Pt will complete LSVT-Loud voice exercises with avg loudness levels within normal conversational limits (65-75dB ) in 90% of opportunities. 4. Pt will perform LSVT-Loud HEP tasks no less than 5x/wk across 3 wks to promote long- term carryover and independence with meeting/ maintaining vocal loudness targets, as demonstrated by exercise journal completed by pt. Retirement Goals 1. Pt will maintain loudness levels with avg of 70 dB or greater in spontaneous conversation in 75% of opportunities. 2. Using memory strategies as needed, the pt will demonstrate delayed recall (>5 min) of 7-digit number sequences with 80% accuracy. 3. Given pictures or descriptions of persons in the pt's functional life, he will recall names with 80% accuracy to improve memory skills and maintain relationships. 4. The pt will report memory skills WFL, with use of internal/external strategies as needed. Treatment Activities Name Recall: Given descriptions of familiar people, the pt named them with 81% acc, min verbal cues. Consulted with pt to make associations with errored names. After associations were made and a delay of 20 min, the pt recalled the names he had earlier not been able to recall. Calendar: Pt reported and demonstrated improved ability to use cell phone calendar. He reported improved ability to track daily tasks as a result. Will f/u and reinforce. Assessment Patient Response to Treatment Good Rehab Potential Good Impairments Identified Cognitive-Linguistic Skills, Memory - Short Term,Parkinson' s Disease,Vocal Quality Progress Towards Goals Slow Progress Assessment of Overall Progress Improving Assessment of Improvement Significant progress with name recall, demonstrating benefit and need for regular rehearsal. Pt is progressing with cell phone calendar use as external memory tool for daily events. Needs reinforcement. Reviewed with Patient Goals,Progress Being Made,Home Exercise Program Patient/Caregiver Understanding Good Plan Amount of Therapy Recommended 2-3 Months Frequency of Treatment Once a Week Length of Session 45 Minutes Treatment Emphasis Next Session Name and daily events recall Therapeutic Contents Client Education,Cognitive- Linguistic Training,Home Exercise Program,Voice Training Provided Patient/Caregiver Instruction Home Exercise Program,Plan of Care,Questions/Concerns Therapy Recommendations Continue with Current Program
--- NOTE | 2019-05-04 08:18 | ST.OPTN ---
Visit Care Team Role Provider Type Carisa Hoffmann PA-C Primary Care Provider Advanced Lan Support Specialist Address: [address] [place] [address], [address], [place], [address] Natalia Awad Attending Provider Non-Staff Address: [address] [place] [address], [place], [address] ERP IMPLEMENTATION CONSULTANT Treatment Note ERP IMPLEMENTATION CONSULTANT Treatment Note Start: 10/04/18 16:57 Freq: Status: Active Protocol: Document 05/02/19 07:52 ALEXANDRA (Rec: 05/04/19 08:18 ALEXANDRA [email or web address]) Speech Pathology Treatment Note Session Time Visit Start Time 15:30 Visit Stop Time 16:15 Total Visit Minutes 45 Visit Information Visit Number 06/30 Plan of Care Dates 03/22/19 - 06/14/19 Insurance Information [employer] $40 co-pay Setting Treatment Setting Outpatient Care Visit Type Note Type Progress Note Next Note Type Next Note Type Treatment Note General Information General Information This now 79-yr-old male was diagnosed with Parkinson's disease in 2017 yrs ago. He developed shuffling gait ~3 yrs prior and has experienced cognitive changes since diagnosis. He was seen for neuropsychomitric testing in March 2018 and diagnosed with mild neuro cognitive disorder. The pt continues with occasional balance and visuospatial processing problems and recently completed LSVT-Big with Physical Therapy 1 yr ago and continues with PT 1x/wk. The pt has now successfully completed LSVT-Loud to improve voice/vocal loudess, as his voice had gotten softer over time, which had been of particular impact on his . Pt continues to deny tremor and swallow difficulties. He endorses loss of smell and taste, which impacts his interest in food and has lessened his consumption, and both he and his report decline in memory skills. The pt underwent Psychological Testing administered by Dr. Johnson of [facility] on 04/05/18 which indicated no major neurological dysfunction but more likely normal changes consistent with aging. Scores of Low Average or Extremely Low occurred in areas of memory on CLVT, WMS-IV, and CVLT-2 tests. It is possible that some of his scores, while falling within the average range, represent declines from his baseline and this would likely be due to his movement disorder. In his case there is the possiblity of high cognitive reserves obscuring true declines. There are no consistent indications of the frontosubcortical cognitive profile of person with Parkinson's disease or other movement disorders. The pt has an extended family history of Parkinson's disease , including a brother who developed PD in his 40s and in his 60s; a sister with PD and significant dementia; a sister who was told she had PD and is now in a wheelchair, although the diagnosis is not certain. This obviously increases the pt's concern about his own developing symptoms. He also reported a brother, sister and 2 cousins who have been diagnosed with [place] Syndrome, which may be related to toxic environmental exposures. Finally, the pt has a pacemaker and is on blood thinners. He has concerns of falling, secondary to balance issues, and of potentially hitting his head and developing bleeding in his brain. He wears a helmet when engaged in any physical activity in which he may experience a fall (e.g., bike riding, walking outdoors, etc. ). His concern is exaccerbated by having had a sister who fell and from a brain hemorrhage. Subjective Observations/Patient Presentation Pt arrived on time. Reported improved ability to recall names of people at [employer] after reviewing and practicing over the week. He also reports increased comfort with using cell phone calendar to track appts and daily activities. Chief Complaint(s) Cognitive,Voice Additional Areas of Concern Improve short-term and working memory Rehab Expectation/Goals: Patient Goals Increase vocal loudness to be heard by others, sandra ; Improve memory Patient Knowledge/Awareness of ERP IMPLEMENTATION CONSULTANT Role Excellent in Treatment Objective Short Term Goals 1. The pt will identify memory strategies (e.g., visualization techniques, increasing awareness, etc.) in structured tasks to assist in recalling names, lists of up to 5 items, etc., necessary for functional activities. 2. Using memory strategies, the pt will recall names and lists of up to 5 items after a 3-minute or greater delay with 80% accuracy to increase functional memory skills. 3. Pt will complete LSVT-Loud voice exercises with avg loudness levels within normal conversational limits (65-75dB ) in 90% of opportunities. 4. Pt will perform LSVT-Loud HEP tasks no less than 5x/wk across 3 wks to promote long- term carryover and independence with meeting/ maintaining vocal loudness targets, as demonstrated by exercise journal completed by pt. Custodial Goals 1. Pt will maintain loudness levels with avg of 70 dB or greater in spontaneous conversation in 75% of opportunities. 2. Using memory strategies as needed, the pt will demonstrate delayed recall (>5 min) of 7-digit number sequences with 80% accuracy. 3. Given pictures or descriptions of persons in the pt's functional life, he will recall names with 80% accuracy to improve memory skills and maintain relationships. 4. The pt will report memory skills WFL, with use of internal/external strategies as needed. Treatment Activities Consulted with pt RE voice HEP and strategies for increasing his intelligibility with his , as both she and the pt have hearing impairments and struggle to be heard by one another. Educated/trained pt in communication strategies in presence of hearing loss. Pt identified personal and environmental adaptations (e.g ., speaking [id number], reducing background noise) already in place to assist. He identified greatest difficulty occurs during meals when they sit at opposite ends of dining table. Pt agreed to sitting closer together, positioning himself on 's good ear side. Also discussed again strategies for the pt to prompt himself to be louder. He informed he does have a written Post-It note at his place at the table but does not always respond to it. Pt felt it was within his power to simply choose to be louder, although he has not demonstrated effectiveness with this over the course of treatment, which he acknowledged. Also collaborated with pt RE community resources to promote carryover with voice exercises and loudness, including PD support group which the pt sometimes attends , and [employer] which the pt has not yet attended but expressed interest in. He also informed he would be interested in participating with an [facility] graduate group to practice treatment HEP tasks, if one were to be initiated in the area. Pt's vocal loudness in conversation over course of session: 64-78 dB, avg 69 dB, WNL for environment and conversation partner. Assessment Patient Response to Treatment Good Rehab Potential Good Impairments Identified Cognitive-Linguistic Skills, Memory - Short Term,Parkinson' s Disease,Vocal Quality Progress Towards Goals Slow Progress Assessment of Overall Progress Improving Assessment of Improvement Pt continues to report consistent improvement with name recall when he reviews and practices names from time to time. Also is improving with comfort in using cell phone calendar to recall important events. He also continues to use appropriate vocal loudness levels in groups and with conversation partners other than his , with whom he struggles to be loud enough. He is receptive to strategies to improve this but has been in consistent in following through on these strategies. He was receptive to new strategies discussed today and understands his responsibility to employ them. Reviewed with Patient Goals,Progress Being Made,Home Exercise Program Patient/Caregiver Understanding Good Plan Amount of Therapy Recommended 2-3 Months Frequency of Treatment Once a Week Length of Session 45 Minutes Treatment Emphasis Next Session Name and daily events recall Therapeutic Contents Client Education,Cognitive- Linguistic Training,Home Exercise Program,Voice Training Provided Patient/Caregiver Instruction Home Exercise Program,Plan of Care,Questions/Concerns Therapy Recommendations Continue with Current Program
--- NOTE | 2019-05-19 12:25 | ST.OPTN ---
Visit Care Team Role Provider Type Carisa Hoffmann PA-C Primary Care Provider Advanced [employer] Cameraman Address: [address] [place] [address], [address], [place], [address] Natalia Awad Attending Provider Non-Staff Address: [address] [place] [address], [place], [address] BROOMMAKING SUPERVISOR Treatment Note BROOMMAKING SUPERVISOR Treatment Note Start: 10/04/18 16:57 Freq: Status: Active Protocol: Document 05/18/19 12:10 ALEXANDRA (Rec: 05/19/19 12:25 ALEXANDRA [email or web address]) Speech Pathology Treatment Note Session Time Visit Start Time 14:35 Visit Stop Time 15:20 Total Visit Minutes 45 Visit Information Visit Number 07/30 Plan of Care Dates 03/22/19 - 06/14/19 Insurance Information [employer] $40 co-pay Setting Treatment Setting Outpatient Care Visit Type Note Type Progress Note Next Note Type Next Note Type Treatment Note General Information General Information This now 79-yr-old male was diagnosed with Parkinson's disease in 2017 yrs ago. He developed shuffling gait ~3 yrs prior and has experienced cognitive changes since diagnosis. He was seen for neuropsychomitric testing in March 2018 and diagnosed with mild neuro cognitive disorder. The pt continues with occasional balance and visuospatial processing problems and recently completed LSVT-Big with Physical Therapy 1 yr ago and continues with PT 1x/wk. The pt has now successfully completed LSVT-Loud to improve voice/vocal loudess, as his voice had gotten softer over time, which had been of particular impact on his . Pt continues to deny tremor and swallow difficulties. He endorses loss of smell and taste, which impacts his interest in food and has lessened his consumption, and both he and his report decline in memory skills. The pt underwent Psychological Testing administered by Dr. Johnson of [facility] on 04/05/18 which indicated no major neurological dysfunction but more likely normal changes consistent with aging. Scores of Low Average or Extremely Low occurred in areas of memory on CLVT, WMS-IV, and CVLT-2 tests. It is possible that some of his scores, while falling within the average range, represent declines from his baseline and this would likely be due to his movement disorder. In his case there is the possiblity of high cognitive reserves obscuring true declines. There are no consistent indications of the frontosubcortical cognitive profile of person with Parkinson's disease or other movement disorders. The pt has an extended family history of Parkinson's disease , including a brother who developed PD in his 40s and in his 60s; a sister with PD and significant dementia; a sister who was told she had PD and is now in a wheelchair, although the diagnosis is not certain. This obviously increases the pt's concern about his own developing symptoms. He also reported a brother, sister and 2 cousins who have been diagnosed with [place] Syndrome, which may be related to toxic environmental exposures. Finally, the pt has a pacemaker and is on blood thinners. He has concerns of falling, secondary to balance issues, and of potentially hitting his head and developing bleeding in his brain. He wears a helmet when engaged in any physical activity in which he may experience a fall (e.g., bike riding, walking outdoors, etc. ). His concern is exaccerbated by having had a sister who fell and from a brain hemorrhage. Subjective Observations/Patient Presentation Pt arrived on time. Reported improved ability to recall names of people at [employer] without reviewing and practicing names prior. He also reports continued comfort with using cell phone calendar to track appts and daily activities. Chief Complaint(s) Cognitive,Voice Additional Areas of Concern Improve short-term and working memory Rehab Expectation/Goals: Patient Goals Increase vocal loudness to be heard by others, sandra ; Improve memory Patient Knowledge/Awareness of BROOMMAKING SUPERVISOR Role Excellent in Treatment Objective Short Term Goals 1. The pt will identify memory strategies (e.g., visualization techniques, increasing awareness, etc.) in structured tasks to assist in recalling names, lists of up to 5 items, etc., necessary for functional activities. 2. Using memory strategies, the pt will recall names and lists of up to 5 items after a 3-minute or greater delay with 80% accuracy to increase functional memory skills. 3. Pt will complete LSVT-Loud voice exercises with avg loudness levels within normal conversational limits (65-75dB ) in 90% of opportunities. 4. Pt will perform LSVT-Loud HEP tasks no less than 5x/wk across 3 wks to promote long- term carryover and independence with meeting/ maintaining vocal loudness targets, as demonstrated by exercise journal completed by pt. Detention Goals 1. Pt will maintain loudness levels with avg of 70 dB or greater in spontaneous conversation in 75% of opportunities. 2. Using memory strategies as needed, the pt will demonstrate delayed recall (>5 min) of 7-digit number sequences with 80% accuracy. 3. Given pictures or descriptions of persons in the pt's functional life, he will recall names with 80% accuracy to improve memory skills and maintain relationships. 4. The pt will report memory skills WFL, with use of internal/external strategies as needed. Treatment Activities Consulted with pt RE progress and POC. He is recalling names more easily and frequently in functional settings, which he expressed much relief and encouragement over. He is also consistently using his cell phone calendar, checking it daily, and has not missed an appt since using. In conversation, he spoke with avg loudness levels from 63-74 dB in this quiet environment over a variety of conversation topics. At times, low volume increased the effort of the clinician to hear and understand him, but he did remain 100% intelligible. He has not made environmental modifications discussed at last session to increase speech intelligibility with his (i.e., sit closer together at dinner table), but reported he is most often being heard by his . He also spoke publicly at [employer], being mindful of loudness levels, and was well received by listeners. Discussed POC and potential approach to ending services. The pt expressed a desire to f /u again in 2 wks after additional thought and observations of other cognitive skill areas that he may wish to address in tx. This was agreed. Assessment Patient Response to Treatment Good Rehab Potential Good Impairments Identified Cognitive-Linguistic Skills, Memory - Short Term,Parkinson' s Disease,Vocal Quality Progress Towards Goals Slow Progress Assessment of Overall Progress Improving Assessment of Improvement The pt has made good progress toward goals and is demonstrating more consistent carryover in functional tasks with reducing reliance on memory notebook. Anticipate dc from services in 1-2 sessions . Reviewed with Patient Goals,Progress Being Made,Home Exercise Program Patient/Caregiver Understanding Good Plan Amount of Therapy Recommended 2-3 Months Frequency of Treatment Once a Week Length of Session 45 Minutes Treatment Emphasis Next Session Name and daily events recall Therapeutic Contents Client Education,Cognitive- Linguistic Training,Home Exercise Program,Voice Training Provided Patient/Caregiver Instruction Home Exercise Program,Plan of Care,Questions/Concerns Therapy Recommendations Continue with Current Program
--- NOTE | 2019-05-23 16:21 | ST.OPDS ---
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 He developed shuffling gait ~3 yrs prior and has experienced cognitive changes since diagnosis. He was seen for neuropsychomitric testing in March 2018 and diagnosed with mild neuro cognitive disorder. The pt continues with occasional balance and visuospatial processing problems and recently completed LSVT-Big with Physical Therapy 1 yr ago and continues with PT 1x/wk. The pt has now successfully completed LSVT-Loud to improve voice/vocal loudess, as his voice had gotten softer over time, which had been of particular impact on his . Pt continues to deny tremor and swallow difficulties. He endorses loss of smell and taste, which impacts his interest in food and has lessened his consumption, and both he and his report decline in memory skills. The pt underwent Psychological Testing administered by Dr. Johnson of [facility] on 04/05/18 which indicated no major neurological dysfunction but more likely normal changes consistent with aging. Scores of Low Average or Extremely Low occurred in areas of memory on CLVT, WMS-IV, and CVLT-2 tests. It is possible that some of his scores, while falling within the average range, represent declines from his baseline and this would likely be due to his movement disorder. In his case there is the possiblity of high cognitive reserves obscuring true declines. There are no consistent indications of the frontosubcortical cognitive profile of person with Parkinson's disease or other movement disorders. The pt has an extended family history of Parkinson's disease , including a brother who developed PD in his 40s and in his 60s; a sister with PD and significant dementia; a sister who was told she had PD and is now in a wheelchair, although the diagnosis is not certain. This obviously increases the pt's concern about his own developing symptoms. He also reported a brother, sister and 2 cousins who have been diagnosed with [place] Syndrome, which may be related to toxic environmental exposures. Finally, the pt has a pacemaker and is on blood thinners. He has concerns of falling, secondary to balance issues, and of potentially hitting his head and developing bleeding in his brain. He wears a helmet when engaged in any physical activity in which he may experience a fall (e.g., bike riding, walking outdoors, etc. ). His concern is exaccerbated by having had a sister who fell and from a brain hemorrhage. Subjective Observations/Patient Presentation Informed by call center receptionist staff that the pt came to the clinic this morning and requested to discharge from skilled intervention, in reflection of conversation with the clinician during the last session. The pt has made significant improvement over course of treatment, does not have additional concerns at this time and will be discharged from therapy. Chief Complaint(s) Cognitive,Voice Rehab Expectation/Goals: Patient Goals Increase vocal loudness to be heard by others, sandra ; Improve memory Patient Knowledge/Awareness of ANALOG CIRCUIT DESIGNER Role Excellent in Treatment Objective Short Term Goals 1. The pt will identify memory strategies (e.g., visualization techniques, increasing awareness, etc.) in structured tasks to assist in recalling names, lists of up to 5 items, etc., necessary for functional activities. GOAL MET 2. Using memory strategies, the pt will recall names and lists of up to 5 items after a 3-minute or greater delay with 80% accuracy to increase functional memory skills. GOAL NOT MET; Pt prefering written lists. 3. Pt will complete LSVT-Loud voice exercises with avg loudness levels within normal conversational limits (65-75dB ) in 90% of opportunities. GOAL MET 4. Pt will perform LSVT-Loud HEP tasks no less than 5x/wk across 3 wks to promote long- term carryover and independence with meeting/ maintaining vocal loudness targets, as demonstrated by exercise journal completed by pt. GOAL MET Mcc Goals 1. Pt will maintain loudness levels with avg of 70 dB or greater in spontaneous conversation in 75% of opportunities. GOAL MET 2. Using memory strategies as needed, the pt will demonstrate delayed recall (>5 min) of 7-digit number sequences with 80% accuracy. GOAL NOT MET; Pt prefering external memory tools. 3. Given pictures or descriptions of persons in the pt's functional life, he will recall names with 80% accuracy to improve memory skills and maintain relationships. GOAL MET 4. The pt will report memory skills WFL, with use of internal/external strategies as needed. GOAL MET Assessment Patient Response to Treatment Good Impairments Identified Cognitive-Linguistic Skills, Speech Intelligibility,Vocal Quality Progress Towards Goals Good Progress Assessment of Overall Progress Improving,Rehabilitated Assessment of Improvement José Luis was initially treated for vocal loudness secondary to Parkinson's disease and completed the LSVT-Loud program. Over course of that treatment, he expressed concern of memory changes and, following LSVT-Loud, continued treatment targeting memory skills and development and use of external memory tools. Over the course of treatment, he became proficient at using tools on his phone to successfully track appointments and lists ( e.g., to-do lists, shopping lists, and phone numbers). He developed a Memory Notebook to track names of people with whom he frequently interacts. Over the course of treatment, he advanced in memory skills from being totally dependent on Memory Notebook to being independent in name recall. With these improved skills, he expressed improved functioning in day to day activities and interactions with others. Occasionally the pt expressed feelings of disorientation when his environment or schedule was disrupted (e.g., when a remodel of his kitchen was underway in his home); however , this did not interfere with his ability to orient to time, place and navigate his home and greater environment and was therefore not targeted in therapy. The pt was invited to return to skilled intervention should this or other changes occur. He verbalized understanding and agreement. Plan Therapeutic Contents Client Education,Cognitive- Linguistic Training,Home Exercise Program,Voice Training Therapy Recommendations Discharge to Home Exercise Program,Discharge from Speech Therapy
== END 2019-05-24 13:14 ==
LOC: SP 14:30
PROVIDERS: PCP Physician Assistant; Visit Provider Psychiatry & Neurology Neurology
DX: G20 Parkinson's disease (principal)
CPT/HCPCS: 92507; 92524; 97127; 97129; 97130

== ENCOUNTER → 2019-05-23 07:32 | Outpatient (CLI) | payer OTHER, SELFPAY ==
[2019-05-23 08:37] LABS: Alanine Aminotransferase 22 IU/L (<50); Albumin 4.2 g/dL (3.5-5.0); Albumin Globulin Ratio 1.4 (1.0-2.8); Alkaline Phosphatase 97 U/L (38-126); Aspartate Aminotransferase 29 IU/L (17-59); BUN Creatinine Ratio 15.5 (6-22); Bilirubin Total 1.9 mg/dL (0.2-1.3); Blood Urea Nitrogen 17 mg/dL (9-20); Calcium 9.2 mg/dL (8.4-10.2); Carbon Dioxide 31 mmol/L (22-32); Chloride 102 mmol/L (98-107); Cholesterol 111 mg/dL (140-199); Estimated Glomerular Filt Rate > 60.0 mL/min (>60); Globulin 3.1 g/dL (1.7-4.1); Glucose 123 mg/dL (80-110); HDL Cholesterol 35 mg/dL (40-60); HEMOLYSIS < 15 (0-50); LDL Cholesterol Calculated 62 mg/dL (<100); Potassium 3.5 mmol/L (3.4-5.1); Sodium 141 mmol/L (137-145); Total Protein 7.3 g/dL (6.3-8.2); Triglycerides 70 mg/dL (35-150)
== END ==
PROVIDERS: PCP Physician Assistant; Referring Provider Internal Medicine Cardiovascular Disease; Visit Provider Internal Medicine Cardiovascular Disease
DX: E78.5 Hyperlipidemia, unspecified (principal); I10 Essential (primary) hypertension
CPT/HCPCS: 36415; 80053; 80061

== ENCOUNTER → 2019-07-18 16:36 | Outpatient (CLI) | payer OTHER, SELFPAY ==
[2019-07-18 18:35] LABS: BUN Creatinine Ratio 23.5 (6-22); Blood Urea Nitrogen 27 mg/dL (9-20); Calcium 9.4 mg/dL (8.4-10.2); Carbon Dioxide 31 mmol/L (22-32); Chloride 102 mmol/L (98-107); Estimated Glomerular Filt Rate > 60.0 mL/min (>60); Glucose 103 mg/dL (80-110); HEMOLYSIS < 15 (0-50); Potassium 3.6 mmol/L (3.4-5.1); Sodium 138 mmol/L (137-145)
== END ==
PROVIDERS: PCP Physician Assistant; Referring Provider Internal Medicine Cardiovascular Disease; Visit Provider Internal Medicine Cardiovascular Disease
DX: I10 Essential (primary) hypertension (principal)
CPT/HCPCS: 36415; 80048

== ENCOUNTER → 2019-08-12 11:59 | Outpatient (CLI) | payer OTHER, SELFPAY ==
[2019-08-12 15:09] LABS: Vitamin B12 > 1000 pg/mL (239-931)
[2019-08-16 11:36] LABS: Acetylcholine Receptor Bind AB 0.04 nmol/L (0.00-0.24)
[2019-08-17 12:44] LABS: Acetylcholine Rec Blocking AB 17 % (0-25)
== END ==
PROVIDERS: PCP Family Medicine; Referring Provider Psychiatry & Neurology Neurology; Visit Provider Psychiatry & Neurology Neurology
DX: H53.2 Diplopia (principal)
CPT/HCPCS: 36415; 82607; 83519

== ENCOUNTER → 2019-11-12 11:31 | Outpatient (CLI) | payer OTHER, SELFPAY ==
[2019-11-14 06:18] LABS: COVID19 Sendout Not Detected (Not Detect)
== END ==
PROVIDERS: PCP Family Medicine; Visit Provider Nurse Practitioner
DX: Z11.59 Encounter for screening for other viral diseases (principal)
CPT/HCPCS: 87635

== ENCOUNTER 2019-11-15 06:59 | Day surgery (SDC) | payer OTHER, SELFPAY ==
[2019-11-15] MEDS: PROPARACAINE 0.5% OPHTH SOL 2 DROPS EYE-OP (07:59)
[2019-11-15] MEDS: CATARACT EYE COMPOUND (10 DROPS/SYRINGE) 3 DROPS EYE-OP (08:04)
[2019-11-15 08:06] VITALS: BP 121/67; PULSE 60; RESP 16; TEMP 36.3; O2SAT 98; BMI 23.7
--- NOTE | 2019-11-15 08:39 | P.OP_ITS ---
Operative Date/Time/Diagnoses Pre-op diagnosis: Nuclear Cataract Left eye Post-op diagnosis: same Procedure & Clinicians Same procedure as scheduled: Yes Surgeon: Mark Price Anesthesia Type: MAC +/- and Sedation Operative Notes Procedure in detail: Patient brought to the operating suite. Tetracaine drops placed in the left eye. Patient was prepped and draped in sterile manner. Wire lid speculum was placed in the eye. Betadine drops were placed on the eye. This was irrigated. Lidocaine jelly was placed on the eye. A paracentesis port was created with a side-port blade. 0.1 mL 1% preservative free lidocaine was injected into the anterior chamber. The anterior chamber was deepened with viscoelastic. 2.6 mm keratome was used to create a temporal clear corneal incision. Cystotome and Utrata forceps were used to create continuous tear capsulorrhexis. Balanced salt solution was used to hydro dissect the nucleus. The phacoemulsification handpiece was inserted and the nucleus was removed using the stop and chop technique. The irrigation aspiration handpiece was inserted and the remaining cortex was removed. Anterior chamber was deepened with viscoe lastic. An Girard ZCB00 intraocular lens with a power of 22.0 was injected into the capsular bag. Irrigation aspiration handpiece was inserted and the remaining viscoelastic was removed. Incision was hydrated with balanced salt solution and found to be leak free with pressure with Weck-Shahana sponges. 0.1 mL Vigamox injected anterior chamber. 0.3 mL Kenalog 10 mg was injected subconjunctivally. Lid speculum was removed. The patient left the operating room in excellent condition. Complications: none Post-operative Condition: stable Disposition: same day surgery
--- NOTE | 2019-11-15 08:39 | PM.PREOP ---
Pre-operative Note Interval Note History & Physical reviewed/Exam performed by Physician: Yes Changes to H&P: No
[2019-11-15] MEDS: PHENYLEPHRINE/LIDOCAINE VIAL (OR) 0.2 ML EYE-OP (09:03)
[2019-11-15] MEDS: LIDOCAINE JELLY 2% 5 ML 1 APPLIC TOP (09:04)
[2019-11-15] MEDS: MOXIFLOXACIN INJ 5 MG/ML VIAL EYE-OP (09:04)
[2019-11-15] MEDS: TETRACAINE 0.5% OPHTH DROPS 4 ML 2 DROPS EYE-OP (09:04)
[2019-11-15] MEDS: TRIAMCINOLONE 50 MG/5 ML VIAL INJ (09:04)
[2019-11-15] MEDS: CHONDROIDTIN/SOD HYALURONATE 1.05 ML SYRINGE INTRAOCULA (09:04)
[2019-11-15] MEDS: BALANCED SALT IRRIG SOLN NO.2 500 ML, EPINEPHrine 1 MG IRR (09:05)
[2019-11-15 09:22] VITALS: BP 127/68; PULSE 60; RESP 18; TEMP 36.6; O2SAT 98
== END 2019-11-15 09:35 | disposition home or self-care (01) ==
PROVIDERS: PCP Family Medicine; Referring Provider Family Medicine; Visit Provider Ophthalmology
PROC: (CPT 66984; principal; 2019-11-15 08:45)
DX: H25.12 Age-related nuclear cataract, left eye (principal); I10 Essential (primary) hypertension; R00.1 Bradycardia, unspecified; Z95.0 Presence of cardiac pacemaker
CPT/HCPCS: 66984; J0171; J2250; J3010; J3301

== ENCOUNTER → 2019-11-26 13:06 | Outpatient (CLI) | payer OTHER, SELFPAY ==
[2019-11-29 12:03] LABS: COVID19 Sendout Not Detected (Not Detect)
== END ==
PROVIDERS: PCP Family Medicine; Visit Provider Physician Assistant
DX: Z11.59 Encounter for screening for other viral diseases (principal)
CPT/HCPCS: 87635

== ENCOUNTER 2019-11-29 08:30 | Day surgery (SDC) | payer OTHER, SELFPAY ==
[2019-11-29] MEDS: PROPARACAINE 0.5% OPHTH SOL 2 DROPS EYE-OP (09:31)
[2019-11-29] MEDS: CATARACT EYE COMPOUND (10 DROPS/SYRINGE) 3 DROPS EYE-OP (09:35)
[2019-11-29 09:36] VITALS: BP 130/80; PULSE 60; RESP 18; TEMP 36.1; O2SAT 100; BMI 23.1
[2019-11-29 10:00] LABS: COVID19 -Nasal RAPID Negative (Negative)
--- NOTE | 2019-11-29 10:35 | PM.PREOP ---
Pre-operative Note Interval Note History & Physical reviewed/Exam performed by Physician: Yes Changes to H&P: No
--- NOTE | 2019-11-29 10:35 | PM.OP.1 ---
Operative Date/Time/Diagnoses Pre-op diagnosis: Nuclear cataract right eye Procedure & Clinicians Procedure: Cataract Surgery Same procedure as scheduled: Yes Surgeon: Mark Price Anesthesia Type: MAC +/- and Sedation Operative Notes Procedure in detail: Patient brought to the operating suite. Tetracaine drops placed in the right eye. Patient was prepped and draped in sterile manner. Wire lid speculum was placed in the eye. Betadine drops were placed on the eye. This was irrigated. Lidocaine jelly was placed on the eye. A paracentesis port was created with a side-port blade. 0.1 mL 1% preservative free lidocaine was injected into the anterior chamber. The anterior chamber was deepened with viscoelastic. 2.6 mm keratome was used to create a temporal clear corneal incision. Cystotome and Utrata forceps were used to create continuous tear capsulorrhexis. Balanced salt solution was used to hydro dissect the nucleus. The phacoemulsification handpiece was inserted and the nucleus was removed using the stop and chop technique. The irrigation aspiration handpiece was inserted and the remaining cortex was removed. Anterior chamber was deepened with viscoelastic. An Girard ZCB00 intraocular lens with a power of 20.5 was injected into the capsular bag. Irrigation aspiration handpiece was inserted and the remaining viscoelastic was removed. Incision was hydrated with balanced salt solution and found to be leak free with pressure with Weck-Shahana sponges. 0.1 mL Vigamox injected anterior chamber. 0.3 mL Kenalog 10 mg was injected subconjunctivally. Lid speculum was removed. The patient left the operating room in excellent condition. Complications: none Post-operative Condition: stable Disposition: same day surgery
[2019-11-29] MEDS: MOXIFLOXACIN INJ 5 MG/ML VIAL EYE-OP (12:16)
[2019-11-29] MEDS: LIDOCAINE JELLY 2% 5 ML 1 APPLIC TOP (12:16)
[2019-11-29] MEDS: CHONDROIDTIN/SOD HYALURONATE 1.05 ML SYRINGE INTRAOCULA (12:16)
[2019-11-29] MEDS: PHENYLEPHRINE/LIDOCAINE VIAL (OR) 0.2 ML EYE-OP (12:16)
[2019-11-29] MEDS: BALANCED SALT IRRIG SOLN NO.2 500 ML, EPINEPHrine 1 MG IRR (12:17)
[2019-11-29] MEDS: TRIAMCINOLONE 50 MG/5 ML VIAL INJ (12:17)
[2019-11-29] MEDS: TETRACAINE 0.5% OPHTH DROPS 4 ML 2 DROPS EYE-OP (12:17)
[2019-11-29 12:40] VITALS: BP 118/69; PULSE 59; RESP 15; TEMP 36.7; O2SAT 100
== END 2019-11-29 12:49 | disposition home or self-care (01) ==
PROVIDERS: PCP Family Medicine; Referring Provider Ophthalmology; Visit Provider Ophthalmology
PROC: (CPT 66984; principal; 2019-11-29 10:15)
DX: H25.11 Age-related nuclear cataract, right eye (principal); I10 Essential (primary) hypertension; R00.1 Bradycardia, unspecified; Z11.59 Encounter for screening for other viral diseases
CPT/HCPCS: 66984; 87635; J0171; J2250; J3301

== ENCOUNTER → 2020-01-04 13:33 | Outpatient (CLI) | payer OTHER, SELFPAY | PROVIDERS: PCP Family Medicine; Visit Provider Specialist | DX: N39.0 Urinary tract infection, site not specified (principal); N40.0 Benign prostatic hyperplasia without lower urinary tract symptoms; R31.0 Gross hematuria | CPT/HCPCS: 51798; 81002; 87077; 87086; 87186; 99214 ==

== ENCOUNTER 2020-06-13 19:40 | Emergency (ER) | payer OTHER, SELFPAY ==
[2020-06-13 19:53] VITALS: BP 132/73; PULSE 70; RESP 17; TEMP 37.1; O2SAT 97; BMI 23.7
--- NOTE | 2020-06-13 19:59 | DI.RAD.S_ITS ---
PROCEDURE: XR FOOT RT MIN 3V INDICATIONS: fall with pain to foot,ankle,knee TECHNIQUE: 3 views of the foot were acquired. COMPARISON: None. FINDINGS: Bones: Diffuse osteopenia. Minimally displaced oblique fracture of the distal right fibula. This is better seen on comparison ankle radiographs. Otherwise, remainder of the visualized osseous structures appear intact without definite fracture. Moderate background degenerative changes of the right midfoot, 1st metatarsophalangeal joint, and 1st interphalangeal joint. Prominent plantar calcaneal spur. No suspicious bony lesions. Soft tissues: No tibiotalar joint effusion. Achilles tendon appears normal. IMPRESSION: 1. Minimally displaced distal right fibular fracture. 2. No definite fractures identified in the right foot. 3. Polyarticular background degenerative changes of the right midfoot and 1st metatarsophalangeal and 1st interphalangeal joints. 4. Prominent plantar calcaneal enthesophyte. Dictated by: Riley Montiel M.D. on 06/13/2020 at 20:34 Approved by: Riley Montiel M.D. on 06/13/2020 at 20:37
--- NOTE | 2020-06-13 20:00 | DI.RAD.S_ITS ---
PROCEDURE: XR KNEE RT 3V INDICATIONS: fall with pain to foot, ankle, knee TECHNIQUE: 3 views of the knee were acquired. COMPARISON: None. FINDINGS: Bones: Nondisplaced vertical fracture through the lateral aspect of the patella. This is best seen on the sunrise view. There is overlying soft tissue edema and joint effusion. Remainder of the visualized osseous structures appear intact. Moderate tricompartmental degenerative changes of the right knee. No suspicious bony lesions. Soft tissues: Small suprapatellar joint effusion. No suspicious soft tissue calcifications. IMPRESSION: Minimally displaced lateral patellar fracture. Associated suprapatellar joint effusion and overlying soft tissue edema. Moderate tricompartmental right knee osteoarthrosis. Dictated by: Riley Montiel M.D. on 06/13/2020 at 20:37 Approved by: Riley Montiel M.D. on 06/13/2020 at 20:39
--- NOTE | 2020-06-13 20:00 | DI.RAD.S_ITS ---
PROCEDURE: XR ANKLE RT MIN 3V INDICATIONS: fall with pain to foot, ankle, knee TECHNIQUE: 3 views of the ankle were acquired. COMPARISON: None. FINDINGS: Bones: Diffuse osteopenia. Significant degenerative changes of the tibiotalar joint with age-indeterminate ossifications noted over the distal fibula and medial malleolus. There is suggestion of possible, subtle curvilinear lucency through the lateral malleolus best seen on the AP view. There is moderate overlying soft tissue swelling. There is also a oblique lucency through the distal fibula seen on the lateral view, compatible with a minimally displaced distal fibular fracture. Prominent plantar calcaneal spur. Moderate degenerative changes of the dorsal right midfoot. Ankle mortise is normally aligned. No suspicious bony lesions. Soft tissues: No tibiotalar joint effusion. Moderate soft tissue swelling overlying the right ankle. Achilles tendon appears normal. IMPRESSION: Minimally displaced, oblique fracture of the distal right fibula. Age-indeterminate ossifications overlying the medial and lateral malleolus. Concurrent avulsion injuries not excluded. Degenerative changes of the tibiotalar and dorsal midfoot. Prominent plantar calcaneal enthesophyte. Dictated by: Riley Montiel M.D. on 06/13/2020 at 20:31 Approved by: Riley Montiel M.D. on 06/13/2020 at 20:34
--- NOTE | 2020-06-13 20:48 | ED.FALL ---
HPI - Fall General Chief Complaint: Fall Stated Complaint: fall few wks ago, right knee and leg pain Time Seen by Provider: 06/13/20 20:07 Source: patient and family Mode of arrival: Wheelchair Limitations: no limitations History of Present Illness HPI Narrative: Patient is a 80-year-old male. Does have a history of Parkinson's disease. Approximately 3 weeks ago he sustained a fall and afterwards had knee pain but that seems to have improved except for when he is walking down hill. He fell again today injuring his right ankle. Has discomfort with standing on his ankle. Describes as on the outside of his ankle also on the inside. He sustained an abrasion to the top of his foot and also an abrasion to his right hand. He did not hit his head. He had no loss of consciousness. He has no neck pain. He is not on anticoagulation. Related Data Home Medications Medication Instructions Recorded Confirmed apixaban 5 mg tablet 5 mg PO BID tab 04/01/18 01/04/20 cholecalciferol (vitamin D3) 50 4,000 unit PO DAILY 04/01/18 01/04/20 mcg (2,000 unit) capsule atorvastatin 20 mg tablet 10 mg PO QPM tab 07/27/19 01/04/20 carbidopa 25 mg-levodopa 100 mg 1 tab PO TID 07/27/19 01/04/20 disintegrating tablet donepezil 5 mg tablet 5 mg PO DAILY tab 07/27/19 01/04/20 hydrochlorothiazide 25 mg tablet 25 mg PO QPM tab 07/27/19 01/04/20 Previous Rx's Medication Instructions Recorded nitrofurantoin 100 mg PO BID #30 cap 01/06/20 monohydrate/macrocrystals 100 mg capsule omeprazole 20 mg capsule,delayed 20 mg PO DAILY #90 cap 02/13/20 release Allergies Allergy/AdvReac Type Severity Reaction Status Date / Time No Known Drug Allergies Allergy Verified 01/04/20 13:17 Review of Systems Constitutional Constitutional: Denies fever(s), Reports frequent falls and Denies headache(s) Eyes Eyes: Denies change in vision ENT Ears, Nose, Mouth, and Throat: Denies vertigo, Denies dizziness and Denies headache(s) Cardiovascular Cardiovascular: Denies chest pain, Denies irregular heart rhythm, Denies lightheadedness and Denies dyspnea Respiratory Respiratory: Denies cough and Denies dyspnea Gastrointestinal Gastrointestinal: Denies abdominal pain, Denies nausea and Denies vomiting Genitourinary Genitourinary: Denies dysuria Genitourinary: Denies dysuria Musculoskeletal Musculoskeletal: Denies tingling Comments: Right ankle pain Integumentary/Breasts Comments: Abrasion to the top of the right foot into the right hand Neurologic Neurologic: Denies behavioral changes, Denies confusion, Denies vertigo, Denies dizziness, Reports frequent falls, Denies headache(s) and Denies tingling Psychiatric Psychiatric: Denies behavioral changes and Denies confusion Hematologic/Lymphatic On Anticoagulants: No Allergic/Immunologic Allergic/Immunologic: Denies urticaria Patient History Medical History BPH (benign prostatic hyperplasia) BPH NOS w/o ur obs/LUTS GERD (gastroesophageal reflux disease) Gross hematuria Hematuria Surgical History Status post transurethral resection of prostate Family History Brother Parkinsons disease Sister Parkinsons disease Parkinson's disease dementia Sister Drug addiction Social History household members: spouse Smoking Status: Never smoker second hand exposure: No alcohol intake: current substance use type: does not use Smoking Status: Never smoker alcohol intake frequency: 0-2 drinks per day Substance Use Type: does not use Exam Initial Vital Signs Initial Vital Signs: Vital Signs Temperature 98.8 F 06/13/20 19:53 Pulse Rate 70 06/13/20 19:53 Respiratory Rate 17 06/13/20 19:53 Blood Pressure 132/73 06/13/20 19:53 Pulse Oximetry 97 06/13/20 19:53 Const General: cooperative and comfortable Limitations: mental status not altered HENMT Head: normal to inspection and normocephalic Resp Effort & Inspection: normal respiratory effort Cardio Rate: regular rate Pulses: dorsalis pedis present on the right Skin Other: Patient with a superficial abrasion to his right hand that was covered with a Band-Aid. Also has a superficial abrasion to the dorsum of the right foot that needs no intervention. Neuro General: patient alert and patient awake Sensory Exam: no sensory deficits noted Extrem Other: Patient does not have any tenderness to his kneecap. His calf is unremarkable. His hip is unremarkable. Does have tenderness to palpation along the lateral aspect of his right ankle and also on the medial aspect. His Achilles tendon appears intact. Does have tenderness on the dorsum of his right foot. His toes are unremarkable. Psych Appearance: grossly normal and well kempt Procedures Orthopedic Splinting/Casting Injury #1: Side: right Lower Extremity Injury Location: ankle Lower Extremity Immobilizer: posterior splint and stirrup splint Other Orthopedic Equipment: crutches and walker Post splinting neuro exam: intact Post splinting vascular exam: intact Placed by: Provider Course Orders Ordered: ED Orders 06/13/20 19:59 XR foot RT min 3V Stat 06/13/20 20:00 XR ankle RT min 3V Stat XR knee RT 3V Stat 06/13/20 20:48 CT LE RT wo con Stat Vital Signs Vital signs: Vital Signs - 8 hr 06/13/20 19:53 Temperature 98.8 F Pulse Rate 70 Respiratory Rate 17 Blood Pressure 132/73 Pulse Oximetry 97 MDM - Fall Imaging Data Extremity x-ray #1: Radiologist's Impression: [address] [id number] ReportSigned Patient: José Luis Noonan BMR#: [id number]: [id number]/Sex: 80 / MDate of Service: 06/13/20Loc: EDAccession Number: [id number] Procedure: XR foot RT min 3V Ordering Provider: Aquiles Oliveira D.O. PROCEDURE: XR FOOT RT MIN 3V INDICATIONS: fall with pain to foot,ankle,knee TECHNIQUE: 3 views of the foot were acquired. COMPARISON: None. FINDINGS: Bones: Diffuse osteopenia. Minimally displaced oblique fracture of the distal right fibula. This is better seen on comparison ankle radiographs. Otherwise, remainder of the visualized osseous structures appear intact without definite fracture. Moderate background degenerative changes of the right midfoot, 1st metatarsophalangeal joint, and 1st interphalangeal joint. Prominent plantar calcaneal spur. No suspicious bony lesions. Soft tissues: No tibiotalar joint effusion. Achilles tendon appears normal. IMPRESSION: 1. Minimally displaced distal right fibular fracture. 2. No definite fractures identified in the right foot. 3. Polyarticular background degenerative changes of the right midfoot and 1st metatarsophalangeal and 1st interphalangeal joints. 4. Prominent plantar calcaneal enthesophyte. Dictated by: Riley Montiel M.D. on 06/13/2020 at 20:34 Approved by: Riley Montiel M.D. on 06/13/2020 at 20:37 Extremity x-ray #2: Radiologist's Impression: [address] [id number] ReportSigned Patient: José Luis Noonan BMR#: [id number]: [id number]/Sex: 80 / MDate of Service: 06/13/20Loc: EDAccession Number: [id number] Procedure: XR ankle RT min 3V Ordering Provider: Aquiles Oliveira D.O. PROCEDURE: XR ANKLE RT MIN 3V INDICATIONS: fall with pain to foot, ankle, knee TECHNIQUE: 3 views of the ankle were acquired. COMPARISON: None. FINDINGS: Bones: Diffuse osteopenia. Significant degenerative changes of the tibiotalar joint with age-indeterminate ossifications noted over the distal fibula and medial malleolus. There is suggestion of possible, subtle curvilinear lucency through the lateral malleolus best seen on the AP view. There is moderate overlying soft tissue swelling. There is also a oblique lucency through the distal fibula seen on the lateral view, compatible with a minimally displaced distal fibular fracture. Prominent plantar calcaneal spur. Moderate degenerative changes of the dorsal right midfoot. Ankle mortise is normally aligned. No suspicious bony lesions. Soft tissues: No tibiotalar joint effusion. Moderate soft tissue swelling overlying the right ankle. Achilles tendon appears normal. IMPRESSION: Minimally displaced, oblique fracture of the distal right fibula. Age-indeterminate ossifications overlying the medial and lateral malleolus. Concurrent avulsion injuries not excluded. Degenerative changes of the tibiotalar and dorsal midfoot. Prominent plantar calcaneal enthesophyte. Dictated by: Riley Montiel M.D. on 06/13/2020 at 20:31 Approved by: Riley Montiel M.D. on 06/13/2020 at 20:34 Extremity x-ray #3: Radiologist's Impression: [address] [id number] ReportSigned Patient: José Luis Noonan BMR#: [id number]: [id number]/Sex: 80 / MDate of Service: 06/13/20Loc: EDAccession Number: [id number] Procedure: XR knee RT 3V Ordering Provider: Aquiles Oliveira D.O. PROCEDURE: XR KNEE RT 3V INDICATIONS: fall with pain to foot, ankle, knee TECHNIQUE: 3 views of the knee were acquired. COMPARISON: None. FINDINGS: Bones: Nondisplaced vertical fracture through the lateral aspect of the patella. This is best seen on the sunrise view. There is overlying soft tissue edema and joint effusion. Remainder of the visualized osseous structures appear intact. Moderate tricompartmental degenerative changes of the right knee. No suspicious bony lesions. Soft tissues: Small suprapatellar joint effusion. No suspicious soft tissue calcifications. IMPRESSION: Minimally displaced lateral patellar fracture. Associated suprapatellar joint effusion and overlying soft tissue edema. Moderate tricompartmental right knee osteoarthrosis. Dictated by: Riley Montiel M.D. on 06/13/2020 at 20:37 Approved by: Riley Montiel M.D. on 06/13/2020 at 20:39 CT lower extremity: Radiologist's Impression: [address] [id number] Scan ReportSigned Patient: José Luis Noonan BMR#: [id number]: [id number]/Sex: 80 / MDate of Service: 06/13/20Loc: EDAccession Number: [id number] Procedure: CT LE RT wo con Ordering Provider: Aquiles Oliveira D.O. PROCEDURE: CT LE RT WO CON INDICATIONS: eval for medial/posterior malleolus fracture TECHNIQUE: Noncontrast 3-mm axial sections acquired from the distal tibial shaft to the talar dome, with coronal and sagittal reformats.. COMPARISON: [facility], CR, XR ANKLE RT MIN 3V, 06/13/2020, 20:05. FINDINGS: Image quality: Excellent. Bones: Diffuse osteopenia. There is a mildly comminuted distal right fibular fracture with a predominant oblique orientation. Fracture line is seen near the level of the distal tibiofibular syndesmosis. Small ossific fragments of the distal fibula likely represent sequela of remote injury. Most of these appear somewhat corticated. There is mild widening of the lateral ankle mortise. There are small fracture fragments involving the distal anteromedial margins of the medial malleolus. There is also minimal widening of the medial ankle mortise. No posterior malleolar fracture visualized. Subtalar joint is maintained. Moderate degenerative changes of the tibiotalar, subtalar, and midfoot tarsal joints. Moderate degenerative changes involving the 1st metatarsophalangeal and interphalangeal joints. No suspicious intraosseous lesions. Soft tissues: There is extensive soft tissue edema involving the imaged portions of distal right lower leg as well as the ankle. Mild diffuse soft tissue swelling of the right forefoot. No evidence for organized fluid collection. Visualized musculature appear unremarkable in noncontrast appearance. IMPRESSION: 1. Mildly comminuted distal right fibular fracture with mild widening of the lateral ankle mortise may represent possible concurrent ligamentous injury. 2. Likely acute distal medial malleolar avulsion fracture fragments involving the anteromedial aspect of the medial malleolus. There is also mild widening of the medial ankle mortise which also may be related to concurrent ligamentous injury. 3. Diffuse osteopenia. 4. Moderate degenerative changes of the right ankle and right foot. Consider nonemergent MRI to evaluate for internal soft tissue derangement of the right ankle. Dictated by: Riley Montiel M.D. on 06/13/2020 at 22:30 Approved by: Riley Montiel M.D. on 06/13/2020 at 22:47 [facility] Narrative Medical decision making narrative: His falls over the past several weeks appear to be mechanical in nature. He did not hit his head today. The skin abrasions from the fall today knee no intervention here in the ER. The x-ray does show what appears to be a patella fracture however he is not tender over his patella. I have a suspicion that this may have happened from his fall 3 weeks ago when afterwards he stated that he had knee pain. The x-ray of his ankle and foot does show a distal fibula fracture and there was concern about potential medial malleolar fracture however given his degenerative nature of the x-rays it is difficult. CT scan was obtained and does show what appears to be an avulsion fracture of the medial malleolus. Given this he was placed in a splint as described above. He was given both crutches and walker given his history of Parkinson's disease. Had a discussion with the family regarding this. We did discuss the importance of not falling. They are going to work on trying to find him a wheelchair tomorrow. He was given care instructions and return precautions. He was given follow-up instructions with regard to Orthopedics and their phone number. He expressed understanding and agreement. Discharge Plan Departure Patient Disposition: Home Clinical Impression: Ankle fracture, bimalleolar, closed, Abrasion of skin, Fracture, patella Instructions: How to Use Crutches, DI for Ankle Fracture, How to Take Care of Your Splint Activity Restrictions/Additional Instructions: The splint that was placed does need to be treated like a cast. You do need to keep it on hand keep it clean and keep it dry. I recommend that tomorrow you contact your primary doctor to discuss any further workup of your Parkinson's disease and also to discuss your recent increase in falls. Also recommend you contact the [facility] at [phone]. You will most likely need to follow-up with them because of your ankle fracture. Return to the emergency department for any new symptoms. Prescriptions: No Action apixaban [Eliquis] 5 mg tablet 5 mg PO BID RF: 0 atorvastatin 20 mg tablet 10 mg PO QPM RF: 0 cholecalciferol (vitamin D3) 2,000 unit capsule 4,000 unit PO DAILY RF: 0 carbidopa-levodopa 25-100 mg tablet,disintegrating 1 tab PO TID RF: 0 nitrofurantoin monohyd/m-cryst [Macrobid] 100 mg capsule 100 mg PO BID Qty: 30 RF: 0 omeprazole 20 mg capsule,delayed release(DR/EC) 20 mg PO DAILY Qty: 90 RF: 2 hydrochlorothiazide 25 mg tablet 25 mg PO QPM RF: 0 donepezil 5 mg tablet 5 mg PO DAILY RF: 0 Referrals: Thai Francisco DO [Primary Care Provider] -
== END 2020-06-14 00:15 | disposition home or self-care (01) ==
PROVIDERS: Emergency Provider Emergency Medicine; PCP Family Medicine
DX: S82.841A Displaced bimalleolar fracture of right lower leg, initial encounter for closed fracture (principal); S82.031A Displaced transverse fracture of right patella, initial encounter for closed fracture; G20 Parkinson's disease; W19.XXXA Unspecified fall, initial encounter; Z91.81 History of falling
CPT/HCPCS: 73562; 73610; 73630; 73700; 99284

== ENCOUNTER → 2020-06-19 15:15 | Outpatient (CLI) | payer OTHER, SELFPAY ==
[2020-06-19 15:32] LABS: Bacteria Urine None Seen; RBC Urine None Seen (0-5/HPF)
[2020-06-19 15:49] LABS: Appearance Urine UA CLEAR; Bilirubin Urine UA NEGATIVE (NEGATIVE); Color Urine UA YELLOW; Glucose Urine UA NEGATIVE (Negative); Ketones Urine UA TRACE (NEGATIVE); Leukocyte Esterase Urine UA NEGATIVE (NEGATIVE); Nitrite Urine UA NEGATIVE (Negative); Occult Blood Urine UA NEGATIVE (Negative); Protein Urine UA NEGATIVE (Negative); Urobilinogen Urine UA 0.2 E.U./dL (0.2); pH Urine UA 5.5 (4.5-8.0)
[2020-06-19 16:04] LABS: Culture Indicated Urine Cult Not Indicated; Hyaline Casts Urine 1-5/LPF; Mucus Urine 1+ (Negative); Squamous Epithelial Cell Urine 0-1 /HPF (0-5/HPF); WBC Urine 0-1/HPF (0-5/HPF)
== END ==
PROVIDERS: PCP Family Medicine; Referring Provider Family Medicine; Visit Provider Family Medicine
DX: R35.1 Nocturia (principal); R39.9 Unspecified symptoms and signs involving the genitourinary system
CPT/HCPCS: 81001

== ENCOUNTER → 2020-10-02 14:50 | Outpatient (CLI) | payer OTHER, SELFPAY ==
[2020-10-02 15:42] LABS: Add Manual Diff / Slide Review NO; Basophils Absolute Auto 0 /uL (0-100); Basophils Percent Auto 0.6 % (0-2); Eosinophils Absolute Auto 100 /uL (0-450); Eosinophils Percent Auto 1.3 % (2-4); Hematocrit 44.1 % (41-53); Hemoglobin 15.4 g/dL (13.5-17.5); Lymphocytes Absolute Auto 1000 /uL (1100-4500); Lymphocytes Percent Auto 21.1 % (25-40); Mean Corpuscular HGB Conc 34.9 % (30-36); Mean Corpuscular Hemoglobin 31.3 PG (26-34); Mean Corpuscular Volume 89.6 fL (80-100); Monocytes Absolute Auto 700 /uL (0-900); Monocytes Percent Auto 13.7 % (3-14); Neutrophils Absolute Auto 3100 /uL (1500-7000); Neutrophils Percent Auto 63.3 % (50-75); Platelet Count 187 X10^3/uL (150-400); Red Blood Cell Count 4.92 X10^6/uL (4.5-5.9); Red Cell Distribution Width 13.8 % (11.6-14.8)
[2020-10-02 15:59] LABS: Alanine Aminotransferase 8 IU/L (<50); Albumin 4.4 g/dL (3.5-5.0); Albumin Globulin Ratio 1.6 (1.0-2.8); Alkaline Phosphatase 102 U/L (38-126); Aspartate Aminotransferase 26 IU/L (17-59); BUN Creatinine Ratio 26.8 (6-22); Bilirubin Total 1.7 mg/dL (0.2-1.3); Blood Urea Nitrogen 22 mg/dL (9-20); Calcium 9.5 mg/dL (8.4-10.2); Carbon Dioxide 32 mmol/L (22-32); Chloride 100 mmol/L (98-107); Cholesterol 119 mg/dL (140-199); Estimated Glomerular Filt Rate > 60.0 mL/min (>60); Globulin 2.8 g/dL (1.7-4.1); Glucose 130 mg/dL (80-110); HDL Cholesterol 38 mg/dL (40-60); HEMOLYSIS < 15 (0-50); LDL Cholesterol Calculated 52 mg/dL (<100); Potassium 3.6 mmol/L (3.4-5.1); Sodium 140 mmol/L (137-145); Total Protein 7.2 g/dL (6.3-8.2); Triglycerides 145 mg/dL (35-150)
[2020-10-02 16:23] LABS: Prostate Specific Antigen 2.87 ng/mL (0.10-4.00)
[2020-10-02 17:05] LABS: TSH w/ Reflex to FT4 0.69 uIU/mL (0.47-4.68)
== END ==
PROVIDERS: PCP Family Medicine; Referring Provider Family Medicine; Visit Provider Family Medicine
DX: G20 Parkinson's disease (principal); I10 Essential (primary) hypertension; N40.0 Benign prostatic hyperplasia without lower urinary tract symptoms; K21.9 Gastro-esophageal reflux disease without esophagitis; R31.0 Gross hematuria
CPT/HCPCS: 36415; 80053; 80061; 84153; 84443; 85025

== ENCOUNTER → 2021-06-03 07:55 | Outpatient (CLI) | payer OTHER, SELFPAY ==
[2021-06-03 09:50] LABS: Alanine Aminotransferase 9 IU/L (<50); Albumin 4.3 g/dL (3.5-5.0); Albumin Globulin Ratio 1.4 (1.0-2.8); Alkaline Phosphatase 128 U/L (38-126); Aspartate Aminotransferase 31 IU/L (17-59); BUN Creatinine Ratio 18.4 (6-22); Bilirubin Total 1.7 mg/dL (0.2-1.3); Blood Urea Nitrogen 18 mg/dL (9-20); Calcium 9.2 mg/dL (8.4-10.2); Carbon Dioxide 29 mmol/L (22-32); Chloride 104 mmol/L (98-107); Cholesterol 106 mg/dL (140-199); Estimated Glomerular Filt Rate > 60.0 mL/min (>60); Glucose 107 mg/dL (80-110); HDL Cholesterol 37 mg/dL (40-60); HEMOLYSIS < 15 (0-50); LDL Cholesterol Calculated 56 mg/dL (<100); Potassium 3.9 mmol/L (3.4-5.1); Sodium 140 mmol/L (137-145); Total Protein 7.3 g/dL (6.3-8.2); Triglycerides 64 mg/dL (35-150)
== END ==
PROVIDERS: PCP Family Medicine; Referring Provider Internal Medicine Cardiovascular Disease; Visit Provider Internal Medicine Cardiovascular Disease
DX: E78.5 Hyperlipidemia, unspecified (principal); I10 Essential (primary) hypertension
CPT/HCPCS: 36415; 80053; 80061

== ENCOUNTER → 2021-10-07 09:09 | Outpatient (CLI) | payer OTHER, SELFPAY ==
[2021-10-07 11:28] LABS: TSH w/ Reflex to FT4 0.81 uIU/mL (0.47-4.68)
[2021-10-07 11:37] LABS: Folate 8.1 ng/mL (2.76-20.0); Vitamin B12 332 pg/mL (239-931)
== END ==
PROVIDERS: PCP Family Medicine; Referring Provider Psychiatry & Neurology Neurology; Visit Provider Psychiatry & Neurology Neurology
DX: R41.3 Other amnesia (principal); E55.9 Vitamin D deficiency, unspecified
CPT/HCPCS: 36415; 82306; 82607; 82746; 84443

== ENCOUNTER 2021-11-27 14:30 | Outpatient (RCR) | payer OTHER, SELFPAY ==
--- NOTE | 2021-10-15 09:33 | ST.OPIE ---
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 Adult Cognitive Linguistic Eval Start: 10/15/21 08:24 Freq: Status: Active Protocol: Document 10/15/21 08:25 RADHAK (Rec: 10/15/21 09:33 LNK [id number]) Adult Cognitive Linguistic Evaluation Session Time Visit Start Time 11:30 Visit Stop Time 12:30 Total Visit Minutes 60 Visit Information Plan of Care Dates 10/14/21-01/14/22 Referral Referring Provider Mateo Reason for Referral memory/cognition Setting Assessment Location Outpatient Care Visit Type Note Type Initial evaluation Next Note Type Next Note Type Treatment Note Patient Information Identification Type Name,Date of Patient History 81-year-old male with a complex medical history including onset of Parkinson's and early-onset Alzheimer's . He is well known at this clinic, having been seen for both LSVT LOUD and cognitive therapy. He was discharged from therapy secondary to low motivation and inconsistent follow-through with HEP. Pt states that he feels his short term memory is challenging for him. Pt describes having problems remembering appointments and other planned activities. He thinks that he may have become too reliant on his to help him remember. Hearing Hearing Level Hearing Aids Previous Therapy Previous Speech-Language Therapy Yes: See prior records at History of Therapy Cognitive therapy LSVT LOUD Assessment Oral Motor Examination Completed Yes: Informal assessment indicated structures WFL Informal Assessment Receptive Language Normal WFL Expressive Language Normal WFL Pragmatic Language Normal No: Flat affect. Pragmatic Language Impairment(s) Flat affect,Poor eye contact Speech Normal pressed speech and low volume Speech Impairment(s) Imprecise articulation, Decreased volume/intensity, Prosody/Intonation Cognition Normal No Cognitive Impairment(s) Short-term memory,Executive functioning,Thought organization Formal Assessment Standardized Test/Screener Type [facility] Mental Status (UMS) Administration Complete Results Pt scored 19/30 on the SLUMS indicating a mild-moderate cognitive deficit. He scored well on orientation, mental math and number manipulation, divergent naming and spatial recognition. Areas of cognitive weakness were noted in memory activities; remembering 5 words (pt remembered 1/5) and remembering details and answering 4 questions of a short story (pt correctly answered 2/4 questions). Pt's clock drawing was incomplete, demonstrating executive function weakness (correctly indicated the time required; however, he only marked the the hours 1, 2, 3, 6 9, 10,11, and 12 (no 4, 5, 7, 8 hour markers on the clock face). Cuing to check to make sure that he had followed all directions yielded no self- correction. Findings/Results Cognitive Function Mild-moderately impaired Cognitive Communication Deficits Self-awareness of Cognitive- Situational awareness ( Communication Deficits recognition of problem in context;in real time) Concomitant Factors Concomitant Factors Hearing loss Impact on Functioning Activity Limits/Particip.Rest. Mild: General Tasks and Demands Household Tasks Interpersonal Interactions Mod: Education Employment Safety Risks Mild: Being Left Alone at Home Reacting to Emergency Prognosis Prognosis Fair Based on Comorbidities,Duration of symptoms/severity,Other ( comment) Plan of Care Speech-Language Treatment Yes Frequency 1x/week Patient/Caregiver Education Described results of evaluation,Patient expressed understanding of evaluation, Patient expressed agreement with goals and treatment plans Short Term Goals Strategies for increasing memory/remembering items, date , events, etc will be provided to the pt . Strategies such as use of a memory board for the family, a central location for all important items ( phones, keys, etc) and others will be provided Group Home Goals pt will report successful use of strategies
--- NOTE | 2021-10-15 10:26 | ST.OPPOC ---
Physical, Occupational & Speech Therapy At [facility] Visit Care Team Role Provider Type Thai Francisco DO Family Provider Physician Primary Care Provider Address: [address] [place] [address], [address] Fiona Galindo MD Attending Provider Non-Staff Referring Provider Address: [address] [place] [address], [address] Speech Pathology Plan of Care Plan of Care Dates 10/14/21-01/14/22 Referring Provider Mateo Patient History 81-year-old male with a complex medical history including onset of Parkinson's and early-onset Alzheimer's . He is well known at this clinic, having been seen for both LSVT LOUD and cognitive therapy. he was discharged from therapy secondary to low motivation and inconsistent follow-through with HEP. Pt states that he feels his short term memory is challenging for him. Pt describes having problems remembering appointments and other planned activities. He thinks that he may have become too reliant on his to help him remember. Short Term Goals Strategies for increasing memory/remembering items, date, events, etc will be provided to the pt . Strategies such as use of a memory board for the family, a central location for all important items (phones, keys, etc) and others will be provided Digital Imager Goals pt will report successful use of strategies Comment: Electronically Signed by: BRIDGER Powell 10/15/21 1026 If you are in agreement with this Plan of Care, please return a signed and dated copy. I have reviewed this Plan of Care and certify that the skilled therapy services above are required to meet the patient?s needs. Physician Signature Date Printed Name and Credentials Clinical Instructor Signature Printed Name and Credentials
--- NOTE | 2021-10-22 17:00 | ST.OPTN ---
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 He is well known at this clinic, having been seen for both LSVT LOUD and cognitive therapy. He was discharged from therapy secondary to low motivation and inconsistent follow-through with HEP. Pt states that he feels his short term memory is challenging for him. Pt describes having problems remembering appointments and other planned activities. He thinks that he may have become too reliant on his to help him remember. 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 Strategies such as use of a memory board for the family, a central location for all important items (phones, keys, etc) and others will be provided Alf Goals pt will report successful use of strategies Treatment Activities Introduced external memory aids for the pt to discuss with this ST and his . Pt reported that he purchased a white board, but has not set it up yet. He demonstrated that he understood and was interested in exploring additional external memory aids. I reminded him to bring his with him next session as part of his therapy team. This reminder was listed in his HEP. Pt's affect appears to be depressed; he looks down throughout the session, he will close his eys when being spoken to and he sighs frequently. He reported a sense of hopelessness. Discussion followed concerning hopelessness resulting in decreased effort and participation in therapy goals . Reinforced that hope is always available and that by following therapeutic suggestions, his sense of independence may improve. This would be a positive change and may help his self esteem overall. The pt agreed that counseling may help. Assessment Patient Response to Treatment Good Rehab Potential Good Impairments Identified Cognitive communication Reviewed with Patient Home Exercise Program Plan Amount of Therapy Recommended 2-3 Months Comment 1x every 2 weeks Length of Session 45 Minutes Therapeutic Contents Cognitive-Linguistic Training Provided Patient/Caregiver Instruction Home Exercise Program Therapy Recommendations Continue with Current Program Other Referrals counseling/psychiatrist
--- NOTE | 2021-11-28 12:54 | ST.OPTN ---
Visit Care Team Role Provider Type Thai Francisco DO Family Provider Physician Primary Care Provider Address: [address] [place] [address], [id number] Fiona Galindo MD Attending Provider Non-Staff Referring Provider Address: [facility] [place], [address] HOSPITAL CLINIC ASSISTANT Treatment Note HOSPITAL CLINIC ASSISTANT Treatment Note Start: 10/15/21 08:24 Freq: Status: Active Protocol: Document 11/27/21 12:33 LNK (Rec: 11/28/21 12:50 LNK [id number]) Speech Pathology Treatment Note Session Time Visit Start Time 14:30 Visit Stop Time 15:30 Total Visit Minutes 60 Visit Information Plan of Care Dates 10/14/21-01/14/22 Setting Treatment Setting Outpatient Care Visit Type Note Type Treatment Note Next Note Type Next Note Type Treatment Note General Information Patient History 81-year-old male with a complex medical history including onset of Parkinson's and early-onset Alzheimer's . He is well known at this clinic, having been seen for both [facility] and cognitive therapy. He was discharged from therapy secondary to low motivation and inconsistent follow-through with HEP. Pt states that he feels his short term memory is challenging for him. Pt describes having problems remembering appointments and other planned activities. He thinks that he may have become too reliant on his to help him remember. [ Subjective Identification Type Name,Other Identification Reconciled With Intake Sheet Chief Complaint(s) Cognitive Additional Areas of Concern affect Patient Knowledge/Awareness of HOSPITAL CLINIC ASSISTANT Role Excellent in Treatment Patient/Caregiver Compliance with Home Good Exercise Program Objective Short Term Goals Strategies for increasing memory for items, date, events , etc will be provided to the pt. Strategies such as use of a memory board for the family, a central location for all important items (phones, keys, etc) and others will be provided [facility] Goals pt will report successful use of strategies Treatment Activities Reviewed external memory aids with the pt and his . Pt reported that they have set up the white board and it has been very helpful. His reported that she needs to remember to tell pt to go look at the white board and not help him/enable dependance. He has not been interested in additional external memory aids. Most of the session was spent discussing pt overall apathy and lack of follow through with HEP. Pt stated that he is skeptical that anything can help and so he doesn't comply. Again this HOSPITAL CLINIC ASSISTANT mentioned that pt appears to be depressed; he looks down throughout the session, he will close his eyes when being spoken to and he sighs frequently. He reported a sense of hopelessness explaining that he does not like what Parkinson's has done to him/his body overall and he doesn't see an need to do therapy activities. Pt's overall apathy is resulting in decreased effort and participation in therapy. Reinforced that by following therapeutic suggestions, his sense of independence may improve. Nevertheless, it is this HOSPITAL CLINIC ASSISTANT's opinion that psychological counseling is indicated for this pt. His and he were in agreement. We discussed a possible referral to Dr. Wilson. Continued speech therapy does not appear to be indicated at this time. Both pt and agreed. Assessment Rehab Potential Fair Impairments Identified Cognitive communication Progress Towards Goals Delayed Progress,Appropriate for Discharge Assessment of Overall Progress Unchanged Reviewed with Patient Home Exercise Program Plan Amount of Therapy Recommended No Further Therapy Therapeutic Contents Cognitive-Linguistic Training Provided Patient/Caregiver Instruction Home Exercise Program Therapy Recommendations Continue with Current Program, Discharge from Speech Therapy Reason for Discharge referral for counseling Other Referrals counseling/psychiatrist
== END 2021-11-29 09:51 ==
LOC: SP 14:30
PROVIDERS: Family Provider Family Medicine; PCP Family Medicine; Referring Provider Psychiatry & Neurology Neurology; Visit Provider Psychiatry & Neurology Neurology
DX: R41.3 Other amnesia (principal); R47.89 Other speech disturbances; G20 Parkinson's disease
CPT/HCPCS: 96125; 97129; 97130

== ENCOUNTER → 2022-05-14 11:23 | Outpatient (CLI) | payer OTHER, SELFPAY ==
[2022-05-14 13:01] LABS: Hemoglobin A1C% w Est Avg Glu 5.5 % (4.0-6.0)
[2022-05-15 16:16] LABS: Albumin 3.8 g/dL (2.9-4.4); Alpha-1-Globulin 0.2 g/dL (0.0-0.4); Alpha-2-Globulin 0.6 g/dL (0.4-1.0); Gamma Globulin 1.1 g/dL (0.4-1.8); Globulin Total 2.8 g/dL (2.2-3.9); Protein, Total 6.6 g/dL (6.0-8.5)
== END ==
PROVIDERS: Family Provider Family Medicine; PCP Family Medicine; Referring Provider Family Medicine; Visit Provider Family Medicine
DX: E11.9 Type 2 diabetes mellitus without complications (principal); I10 Essential (primary) hypertension; N40.0 Benign prostatic hyperplasia without lower urinary tract symptoms; R31.0 Gross hematuria; Z13.9 Encounter for screening, unspecified
CPT/HCPCS: 36415; 83036; 84155; 84165

== ENCOUNTER → 2022-06-02 16:04 | Outpatient (CLI) | payer OTHER, SELFPAY ==
[2022-06-02 17:20] LABS: Albumin 4.3 g/dL (3.5-5.0); Albumin Globulin Ratio 1.5 (1.0-2.8); BUN Creatinine Ratio 22.7 (6-22); Bilirubin Total 1.7 mg/dL (0.2-1.3); Blood Urea Nitrogen 20 mg/dL (9-20); Calcium 8.9 mg/dL (8.4-10.2); Carbon Dioxide 28 mmol/L (22-32); Estimated Glomerular Filt Rate > 60 mL/min (>60); Globulin 2.9 g/dL (1.7-4.1); Glucose 90 mg/dL (80-110); HEMOLYSIS < 15 (0-50); Potassium 4.1 mmol/L (3.4-5.1); Sodium 140 mmol/L (137-145); Total Protein 7.2 g/dL (6.3-8.2)
[2022-06-02 17:21] LABS: Alanine Aminotransferase 10 IU/L (<50); Alkaline Phosphatase 113 U/L (38-126); Aspartate Aminotransferase 23 IU/L (17-59)
[2022-06-02 17:25] LABS: Chloride 103 mmol/L (98-107)
[2022-06-02 17:50] LABS: Appearance Urine UA CLEAR; Bilirubin Urine UA NEGATIVE (NEGATIVE); Color Urine UA YELLOW; Glucose Urine UA NEGATIVE (Negative); Ketones Urine UA NEGATIVE (NEGATIVE); Leukocyte Esterase Urine UA NEGATIVE (NEGATIVE); Nitrite Urine UA NEGATIVE (Negative); Occult Blood Urine UA 2+ (Negative); Protein Urine UA NEGATIVE (Negative); Specific Gravity Urine UA 1.025 (1.000-1.035); Urobilinogen Urine UA 0.2 E.U./dL (0.2); pH Urine UA 5.5 (4.5-8.0)
[2022-06-02 18:05] LABS: Bacteria Urine None Seen; RBC Urine 5-10/HPF (0-5/HPF); Squamous Epithelial Cell Urine 0-1 /HPF (0-5/HPF); WBC Urine 0-1/HPF (0-5/HPF)
== END ==
PROVIDERS: Family Provider Family Medicine; PCP Family Medicine; Referring Provider Family Medicine; Visit Provider Family Medicine
DX: N39.41 Urge incontinence (principal); R31.9 Hematuria, unspecified; I48.0 Paroxysmal atrial fibrillation
CPT/HCPCS: 36415; 80053; 81001

== ENCOUNTER → 2022-06-16 13:06 | Outpatient (CLI) | payer OTHER, SELFPAY ==
--- NOTE | 2022-06-16 13:08 | DI.CT.S_ITS ---
PROCEDURE: CT KIDNEY URETER BLADDER (KUB) INDICATIONS: Painless gross hematuria TECHNIQUE: Axial sections were acquired from the lung bases to the pubic symphysis. Coronal and sagittal reformats were performed. For radiation dose reduction, the following was used: automated exposure control, adjustment of mA and/or kV according to patient size. COMPARISON: [facility], CT, KIDNEY/ URETER/BLADDER, 08/17/2015, 13:42. FINDINGS: Image quality: Excellent. Lung bases: Unremarkable. Heart: No significant findings. URINARY: Right Kidney: No nephrolithiasis. No hydronephrosis. Small perirenal cysts are noted. Right Ureter: No hydroureter or ureterolithiasis. Left Kidney: There is a large low-density midpole renal cyst. No hydronephrosis or nephrolithiasis. Small perirenal cysts are noted. Left Ureter: No hydroureter or ureterolithiasis. Bladder: Normal wall thickness. No stones. ABDOMEN: Liver: Unremarkable. Gallbladder: The gallbladder is filled with punctate calcified stones. No gallbladder wall thickening or pericholecystic fluid. Biliary ducts: Unremarkable. Pancreas: Unremarkable. Spleen: Unremarkable. Adrenal Glands: Unremarkable. Stomach and Bowel: Stomach, small bowel loops, and colon are unremarkable. There is a small hiatal hernia. The appendix is thin walled and gas filled. There are scattered sigmoid diverticula. No evidence for diverticulitis. Peritoneum: No abnormal intraperitoneal fluid. No free air. Ventral Wall: No hernia. Abdominal Nodes: No enlarged retroperitoneal or mesenteric lymph nodes. Vessels: Aorta and inferior vena cava are normal in size. There are scattered atheromatous calcifications throughout the aorta and iliac arteries bilaterally. PELVIS: Pelvic Organs: Unremarkable. Pelvic Nodes: Unremarkable. Miscellaneous: No inguinal hernias are seen. Bones: Unremarkable. IMPRESSION: 1. No hydronephrosis, nephrolithiasis, hydroureter, or ureterolithiasis. 2. Cholelithiasis. No findings to suggest choledocholithiasis or acute cholecystitis. 3. No acute intra-abdominal findings. Normal appendix. Diverticulosis. No acute diverticulitis. Dictated by: Reanna Perkins M.D. on 06/16/2022 at 15:30 Approved by: Reanna Perkins M.D. on 06/16/2022 at 15:35
== END ==
PROVIDERS: Family Provider Family Medicine; PCP Family Medicine; Referring Provider Family Medicine; Visit Provider Family Medicine
DX: R31.0 Gross hematuria (principal); I86.8 Varicose veins of other specified sites; N28.1 Cyst of kidney, acquired; K80.20 Calculus of gallbladder without cholecystitis without obstruction; K44.9 Diaphragmatic hernia without obstruction or gangrene; K57.30 Diverticulosis of large intestine without perforation or abscess without bleeding
CPT/HCPCS: 74176

== ENCOUNTER → 2022-11-03 12:00 | Outpatient (CLI) | payer OTHER, SELFPAY ==
--- NOTE | 2022-11-03 12:01 | DI.RAD.S_ITS ---
PROCEDURE: XR TOE LT MIN 2V INDICATIONS: Second toe injury with laceration TECHNIQUE: Frontal view of the foot and two views of the 2nd toe COMPARISON: None. FINDINGS: No acute displaced fracture identified. 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 Scattered degenerative changes present elsewhere within the foot. IMPRESSION: No acute displaced fracture identified. If symptoms persist, follow-up radiographs and/or CT or MRI may be helpful for further evaluation. Dictated by: Ramírez Guerra M.D. on 11/03/2022 at 17:34 Approved by: Ramírez Guerra M.D. on 11/03/2022 at 17:37
== END ==
PROVIDERS: Family Provider Family Medicine; PCP Family Medicine; Referring Provider Nurse Practitioner Family; Visit Provider Nurse Practitioner Family
DX: S99.922A Unspecified injury of left foot, initial encounter (principal); X58.XXXA Exposure to other specified factors, initial encounter
CPT/HCPCS: 73660

== ENCOUNTER → 2022-11-13 09:30 | Outpatient (CLI) | payer OTHER, SELFPAY | PROVIDERS: Family Provider Family Medicine; PCP Family Medicine; Referring Provider Family Medicine; Visit Provider Surgery | DX: S21.202A Unspecified open wound of left back wall of thorax without penetration into thoracic cavity, initial encounter (principal); G20 Parkinson's disease; Z79.01 Long term (current) use of anticoagulants | CPT/HCPCS: 99203; 99213 ==

== ENCOUNTER → 2022-11-20 15:05 | Outpatient (CLI) | payer OTHER, SELFPAY | PROVIDERS: Family Provider Family Medicine; PCP Family Medicine; Referring Provider Family Medicine; Visit Provider Surgery | DX: S21.202D Unspecified open wound of left back wall of thorax without penetration into thoracic cavity, subsequent encounter (principal); Z79.01 Long term (current) use of anticoagulants; G20 Parkinson's disease | CPT/HCPCS: 99212; 99213 ==

== ENCOUNTER → 2022-11-26 10:50 | Outpatient (CLI) | payer OTHER, SELFPAY ==
[2022-11-26 12:39] LABS: Add Manual Diff / Slide Review NO; Basophils Absolute Auto 0 /uL (0-100); Basophils Percent Auto 0.4 % (0-2); Eosinophils Absolute Auto 0 /uL (0-450); Eosinophils Percent Auto 0.6 % (2-4); Hematocrit 42.9 % (41-53); Lymphocytes Absolute Auto 900 /uL (1100-4500); Lymphocytes Percent Auto 13.2 % (25-40); Mean Corpuscular HGB Conc 34.9 % (30-36); Mean Corpuscular Hemoglobin 31.6 PG (26-34); Mean Corpuscular Volume 90.4 fL (80-100); Monocytes Absolute Auto 900 /uL (0-900); Neutrophils Absolute Auto 5000 /uL (1500-7000); Neutrophils Percent Auto 72.8 % (50-75); Platelet Count 243 X10^3/uL (150-400); Red Blood Cell Count 4.74 X10^6/uL (4.5-5.9); Red Cell Distribution Width 13.7 % (11.6-14.8); White Blood Cell Count 6.9 X10^3/uL (4.5-11.0)
[2022-11-26 13:20] LABS: Blood Urea Nitrogen 23 mg/dL (9-20); Carbon Dioxide 29 mmol/L (22-32); Chloride 103 mmol/L (98-107); Estimated Glomerular Filt Rate > 60 mL/min (>60); Glucose 79 mg/dL (80-110); HEMOLYSIS < 15 (0-50); Potassium 4.2 mmol/L (3.4-5.1); Sodium 140 mmol/L (137-145)
== END ==
PROVIDERS: Family Provider Family Medicine; PCP Family Medicine; Referring Provider Family Medicine; Visit Provider Family Medicine
DX: I48.0 Paroxysmal atrial fibrillation (principal); Z01.812 Encounter for preprocedural laboratory examination
CPT/HCPCS: 36415; 80048; 85025

== ENCOUNTER → 2023-01-26 07:17 | Outpatient (CLI) | payer OTHER, SELFPAY ==
[2023-01-26 09:09] LABS: Prostate Specific Antigen Scrn 1.45 ng/mL (0.1-4.0)
[2023-01-26 09:11] LABS: Thyroid Stimulating Hormone 1.29 uIU/mL (0.47-4.68)
[2023-01-26 09:32] LABS: Vitamin B12 280 pg/mL (239-931)
== END ==
PROVIDERS: Psychiatry & Neurology Neurology; Family Provider Family Medicine; PCP Family Medicine; Referring Provider Urology; Visit Provider Urology
DX: Z12.5 Encounter for screening for malignant neoplasm of prostate (principal); G20.A1 Parkinson's disease without dyskinesia, without mention of fluctuations
CPT/HCPCS: 36415; 82607; 84443; G0103

== ENCOUNTER → 2023-07-29 09:42 | Outpatient (CLI) | payer OTHER, SELFPAY | PROVIDERS: Family Provider Family Medicine; PCP Family Medicine; Visit Provider Urology | DX: N39.41 Urge incontinence (principal); N40.0 Benign prostatic hyperplasia without lower urinary tract symptoms | CPT/HCPCS: 87077; 87086 ==

== ENCOUNTER → 2023-09-07 07:58 | Outpatient (CLI) | payer OTHER, SELFPAY ==
[2023-09-07 09:48] LABS: Albumin Globulin Ratio 1.6 (1.0-2.8); Alkaline Phosphatase 144 U/L (38-126); Aspartate Aminotransferase 21 IU/L (17-59); BUN Creatinine Ratio 35.7 (6-22); Blood Urea Nitrogen 30 mg/dL (9-20); Calcium 8.9 mg/dL (8.4-10.2); Carbon Dioxide 28 mmol/L (22-32); Chloride 109 mmol/L (98-107); Cholesterol 94 mg/dL (140-199); Estimated Glomerular Filt Rate > 60 mL/min (>60); Globulin 2.5 g/dL (1.7-4.1); Glucose 101 mg/dL (80-110); HDL Cholesterol 52 mg/dL (40-60); HEMOLYSIS < 15 (0-50); LDL Cholesterol Calculated 33 mg/dL (<100); Potassium 4.6 mmol/L (3.4-5.1); Sodium 140 mmol/L (137-145); Total Protein 6.5 g/dL (6.3-8.2); Triglycerides 43 mg/dL (35-150)
[2023-09-07 09:55] LABS: Alanine Aminotransferase < 4 IU/L (<50)
== END ==
PROVIDERS: Family Provider Family Medicine; PCP Family Medicine; Referring Provider Internal Medicine Cardiovascular Disease; Visit Provider Internal Medicine Cardiovascular Disease
DX: E78.5 Hyperlipidemia, unspecified (principal)
CPT/HCPCS: 36415; 80053; 80061

== ENCOUNTER → 2023-09-22 08:04 | Outpatient (CLI) | payer OTHER, SELFPAY ==
[2023-09-22 10:21] LABS: TSH w/ Reflex to FT4 1.25 uIU/mL (0.47-4.68)
== END ==
PROVIDERS: Family Provider Family Medicine; PCP Family Medicine; Referring Provider Family Medicine; Visit Provider Family Medicine
DX: I48.0 Paroxysmal atrial fibrillation (principal); I10 Essential (primary) hypertension; E78.5 Hyperlipidemia, unspecified; I44.0 Atrioventricular block, first degree; R00.1 Bradycardia, unspecified; E80.4 Gilbert syndrome
CPT/HCPCS: 36415; 84443

== ENCOUNTER → 2023-09-25 11:03 | Outpatient (CLI) | payer OTHER, SELFPAY ==
[2023-09-25 12:12] LABS: Add Manual Diff / Slide Review NO; Basophils Absolute Auto 0 /uL (0-100); Basophils Percent Auto 0.4 % (0-2); Eosinophils Absolute Auto 0 /uL (0-450); Eosinophils Percent Auto 0.6 % (2-4); Hematocrit 42.2 % (41-53); Hemoglobin 14.4 g/dL (13.5-17.5); Lymphocytes Absolute Auto 1000 /uL (1100-4500); Mean Corpuscular HGB Conc 34.2 % (30-36); Mean Corpuscular Hemoglobin 31.9 PG (26-34); Mean Corpuscular Volume 93.3 fL (80-100); Monocytes Absolute Auto 800 /uL (0-900); Monocytes Percent Auto 13.7 % (3-14); Neutrophils Absolute Auto 3800 /uL (1500-7000); Neutrophils Percent Auto 67.3 % (50-75); Platelet Count 206 X10^3/uL (150-400); Red Blood Cell Count 4.52 X10^6/uL (4.5-5.9); Red Cell Distribution Width 13.7 % (11.6-14.8); White Blood Cell Count 5.6 X10^3/uL (4.5-11.0)
[2023-09-25 12:27] LABS: Alanine Aminotransferase 8 IU/L (<50); Albumin Globulin Ratio 1.5 (1.0-2.8); Alkaline Phosphatase 145 U/L (38-126); Aspartate Aminotransferase 24 IU/L (17-59); BUN Creatinine Ratio 28.6 (6-22); Bilirubin Total 1.1 mg/dL (0.2-1.3); Blood Urea Nitrogen 22 mg/dL (9-20); Calcium 8.8 mg/dL (8.4-10.2); Carbon Dioxide 28 mmol/L (22-32); Chloride 107 mmol/L (98-107); Estimated Glomerular Filt Rate > 60 mL/min (>60); Globulin 2.6 g/dL (1.7-4.1); Glucose 106 mg/dL (80-110); HEMOLYSIS < 15 (0-50); Lipase 82 U/L (23-300); Potassium 4.6 mmol/L (3.4-5.1); Sodium 139 mmol/L (137-145); Total Protein 6.6 g/dL (6.3-8.2)
== END ==
LOC: LAB 11:04
PROVIDERS: Family Provider Family Medicine; PCP Family Medicine; Referring Provider Family Medicine; Visit Provider Family Medicine
DX: R79.89 Other specified abnormal findings of blood chemistry (principal); R63.4 Abnormal weight loss; E78.5 Hyperlipidemia, unspecified; I10 Essential (primary) hypertension
CPT/HCPCS: 36415; 80053; 83690; 84080; 85025

== ENCOUNTER → 2023-10-01 08:14 | Outpatient (CLI) | payer OTHER, SELFPAY ==
--- NOTE | 2023-10-01 08:30 | DI.US.S_ITS ---
PROCEDURE: US ABDOMEN LIMITED INDICATIONS: eval elevated LFTs TECHNIQUE: Real-time focused scanning was performed of the abdomen, with image documentation. COMPARISON: None. FINDINGS: Liver measures 14.9 cm with steatosis. Gallbladder demonstrates appearance of multiple stones without wall thickening. No pericholecystic fluid. Common bile duct measures 8 mm. There is appearance of very small stones versus sludge in the lumen. No intra or extrahepatic biliary dilation. IMPRESSION: Cholelithiasis without cholecystitis. Hepatic steatosis. Appearance of small stones versus sludge within the lumen of the common bile duct without obstruction. Dictated by: Kerry Carrillo M.D. on 10/01/2023 at 16:52 Approved by: Kerry Carrillo M.D. on 10/01/2023 at 16:53
== END ==
LOC: US 08:15
PROVIDERS: Family Provider Family Medicine; PCP Family Medicine; Referring Provider Family Medicine; Visit Provider Family Medicine
DX: K80.20 Calculus of gallbladder without cholecystitis without obstruction (principal); K76.0 Fatty (change of) liver, not elsewhere classified; R79.89 Other specified abnormal findings of blood chemistry; R63.4 Abnormal weight loss
CPT/HCPCS: 76705

== ENCOUNTER → 2023-10-05 09:20 | Outpatient (CLI) | payer OTHER, SELFPAY ==
--- NOTE | 2023-10-05 09:30 | DI.RAD.S_ITS ---
PROCEDURE: FL UPPER GI SMALL BOWEL INDICATIONS: elevated LFt- weight loss COMPARISON: None. 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 No suspicious abdominal calcifications. Visualized solid organ contours appear unremarkable. No suspicious bony abnormalities. Esophagus: Air-contrast views demonstrate a unremarkable mucosal pattern. On single-contrast views, there is tertiary contractions are seen with reflux. No fixed strictures, extrinsic mass effects, or diverticula of the esophagus. Note is made of a moderate size hiatal hernia. Stomach: Filling defect is seen in the region of the greater curvature of the stomachThe pylorus and duodenal bulb have a unremarkable morphology. Small bowel: Duodenal folds appear normal in thickness. There is normal transit time of barium through the small intestine. Small bowel loops appear normal in caliber throughout. Jejunal and ileal folds are smooth and normal in thickness. No strictures, intraluminal masses, or extrinsic mass effects. The terminal ileum is identified and appears unremarkable. Fluoroscopy time: 1.8 minutes. IMPRESSION: 1. Filling defect in the region of the greater curvature of the stomach could represent a mass lesion or residual food. Recommend endoscopy to further evaluate. 2. Moderate size hiatal hernia 3. Tertiary esophageal contractions with reflux Dictated by: Willie Sultana M.D. on 10/05/2023 at 13:04 Approved by: Willie Sultana M.D. on 10/05/2023 at 13:54
== END ==
PROVIDERS: Family Provider Family Medicine; PCP Family Medicine; Referring Provider Family Medicine; Visit Provider Family Medicine
DX: K21.9 Gastro-esophageal reflux disease without esophagitis (principal); K44.9 Diaphragmatic hernia without obstruction or gangrene; R79.89 Other specified abnormal findings of blood chemistry; R63.4 Abnormal weight loss
CPT/HCPCS: 74240; 74248

== ENCOUNTER → 2023-12-21 12:05 | Outpatient (CLI) | payer OTHER, SELFPAY ==
--- NOTE | 2023-12-21 12:06 | DI.RAD.S_ITS ---
PROCEDURE: FL UPPER GI SMALL BOWEL INDICATIONS: elevated LFt- weight loss COMPARISON: [facility], , [place] UPPER GI SMALL BOWEL, 10/05/2023, 8:38. 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 No suspicious abdominal calcifications. Visualized solid organ contours appear normal in size. No suspicious bony abnormalities. Stomach: The gastric lumen is normally distensible, and has normal rugal fold thickness. Round mass within the gastric body measuring approximately 4.4 cm. The pylorus and duodenal bulb have a normal morphology. Small bowel: Duodenal folds appear normal in thickness. There is normal transit time of barium through the small intestine. Small bowel loops appear normal in caliber throughout. Jejunal and ileal folds are smooth and normal in thickness. No strictures, intraluminal masses, or extrinsic mass effects. The terminal ileum is identified and appears normal. IMPRESSION: Round mass in the gastric body measuring 4.4 cm. Findings could represent malignancy, submucosal GIST or lipoma. Recommend GI referral for endoscopic evaluation if not performed in the past. Dictated by: Rios Earl M.D. on 12/21/2023 at 15:54 Approved by: Rios Earl M.D. on 12/21/2023 at 15:55
[2023-12-21 17:44] LABS: Alanine Aminotransferase 5 IU/L (<50); Albumin 4.5 g/dL (3.5-5.0); Albumin Globulin Ratio 1.7 (1.0-2.8); Alkaline Phosphatase 128 U/L (38-126); Aspartate Aminotransferase 28 IU/L (17-59); BUN Creatinine Ratio 28.8 (6-22); Bilirubin Total 1.5 mg/dL (0.2-1.3); Blood Urea Nitrogen 23 mg/dL (9-20); Calcium 9.2 mg/dL (8.4-10.2); Carbon Dioxide 29 mmol/L (22-32); Chloride 103 mmol/L (98-107); Estimated Glomerular Filt Rate > 60 mL/min (>60); Globulin 2.6 g/dL (1.7-4.1); Glucose 85 mg/dL (80-110); HEMOLYSIS < 15 (0-50); Lipase 62 U/L (23-300); Sodium 140 mmol/L (137-145); Total Protein 7.1 g/dL (6.3-8.2)
[2023-12-21 18:37] LABS: Vitamin B12 908 pg/mL (239-931)
== END ==
PROVIDERS: Family Provider Family Medicine; PCP Family Medicine; Referring Provider Family Medicine; Visit Provider Family Medicine
DX: K21.9 Gastro-esophageal reflux disease without esophagitis (principal); R63.4 Abnormal weight loss; K31.9 Disease of stomach and duodenum, unspecified; R79.89 Other specified abnormal findings of blood chemistry; G20.B1 Parkinson's disease with dyskinesia, without mention of fluctuations; R41.3 Other amnesia; Z79.899 Other long term (current) drug therapy
CPT/HCPCS: 36415; 74240; 74248; 80053; 82607; 83690; 84080

== ENCOUNTER 2024-01-12 09:32 | Day surgery (SDC) | payer OTHER, SELFPAY ==
--- NOTE | 2024-01-12 | PATH_ITS ---
[facility] Accession Number: [id number] No. of containers..01 Tissue . 01 Material submitted: . gastrointestinal site - GASTRIC MASS . 01 Diagnosis: STOMACH, MASS, BIOPSY: Body-type mucosa with no significant diagnostic abnormality. Negative for Helicobacter by immunohistochemistry. Negative for intestinal metaplasia. Negative for dysplasia and malignancy. MRV 01/14/2024 1633 Local . 01 Comment: The endoscopic impression of a 4.4 cm submucosal mass is noted. The biopsy fragments show only a small amount of normal submucosa with no evidence of atypia or malignancy. . 01 Electronically signed: . Lilly Cohn MD, Pathologist NPI- [id number] . 01 Gross description: . Received in formalin with two patient identifiers and gastric mass biopsy, are three geronimo to brown soft tissue fragments, 0.3 to 0.4 cm in greatest dimension, submitted in A1. ([id number]) /MRV 01/13/2024 1810 Local . 01 Microscopic: . A. An immunohistochemical stain was performed to evaluate for Helicobacter organisms and is negative. The control stain showed appropriate reactivity. . * This test was developed and the performance characteristics were validated by [employer]. It has not been cleared or approved by the U.S. Food and Drug Administration. . 01 Pathologist provided ICD-10: K31.89 . 01 CPT . 360327, K06444 Specimen Comment: A courtesy copy of this report has been sent to [phone] Performed at: [address] [address], [place], [place] [id number] MD Adrián Odom MD Phone: [phone]
--- NOTE | 2024-01-12 10:17 | PM.PREOP ---
Pre-operative Note COVID-19 COVID-19 status: Not tested Interval Note History & Physical reviewed/Exam performed by Physician: Yes Changes to H&P: No ASA Class (for procedural sedation): III
--- NOTE | 2024-01-12 10:25 | PM.OP.EGD ---
Operative Date/Time/Diagnoses Date of procedure: 01/12/24 Time of procedure: 11:02 Pre-op diagnosis: Gastric mass Post-op diagnosis: same Procedure & Clinicians Study performed: Esophagogastroduodenoscopy Same procedure as scheduled: Yes Surgeon: Rajinder To Procedure Notes Procedure in detail: Surgeon: Rajinder To MD Anesthesia: Elina Dave CRNA A timeout was performed. A bite blocked was placed. The patient was positioned in the left lateral decubitus position. Anesthesia was administered. The endoscope was inserted through the bite block and passed through the esophagus and stomach and into the duodenum. The duodenal mucosa appeared normal. The scope was withdrawn into the duodenal bulb and no abnormalities were seen. The scope was withdrawn into the stomach. There was a gastric mass in the midbody of the stomach along the lesser curve measuring roughly 4 cm. The mass did not not appear to involve the mucosa. Biopsies were taken from the overlying mucosa with cold forceps and it was clear that the mucosa is could slide freely over the mass suggesting it was arising from the muscular layers of the gastric wall. A hemostatic clip was applied to stop the oozing from the biopsy site. The scope was retroflexed and no other abnormalities were identified. The scope was withdrawn into the esophagus and no other abnormalities were seen. The remainder of the esophagus was normal. The scope was withdrawn. The patient was awakened and brought to recovery. Sedation time: 7 minutes Findings: Gastric mass arising from the midportion of the stomach along the lesser curve and not involving the mucosa Post-procedure Disposition: PACU
[2024-01-12 10:46] VITALS: BP 134/76; PULSE 60; RESP 16; TEMP 36.4; O2SAT 99
[2024-01-12 11:05] VITALS: BP 104/67; PULSE 62; RESP 15; TEMP 36.9; O2SAT 98
[2024-01-12 11:10] VITALS: BP 108/68; PULSE 60; RESP 14; O2SAT 98
[2024-01-12 11:16] VITALS: BP 105/59; PULSE 62; RESP 14; O2SAT 98
[2024-01-12 11:21] VITALS: BP 106/65; PULSE 62; RESP 14; O2SAT 98
== END 2024-01-12 11:30 | disposition home or self-care (01) ==
PROVIDERS: Family Provider Family Medicine; PCP Family Medicine; Referring Provider Surgery; Visit Provider Surgery
PROC: 0DJ08ZZ Inspection of Upper Intestinal Tract, Via Natural or Artificial Opening Endoscopic (ICD-10-PCS; CPT 43239; principal; 2024-01-12 10:45)
DX: K31.89 Other diseases of stomach and duodenum (principal)
CPT/HCPCS: 43239

== ENCOUNTER → 2024-01-20 08:18 | Outpatient (CLI) | payer OTHER, SELFPAY ==
[2024-01-20 09:57] LABS: Prostate Specific Antigen Scrn 1.17 ng/mL (0.1-4.0)
== END ==
PROVIDERS: Family Provider Family Medicine; PCP Family Medicine; Referring Provider Urology; Visit Provider Urology
DX: Z12.5 Encounter for screening for malignant neoplasm of prostate (principal)
CPT/HCPCS: 36415; G0103

== ENCOUNTER 2024-01-21 16:16 | Emergency (ER) | payer OTHER, SELFPAY ==
[2024-01-21] VITALS (18 sets, daily range): BP systolic 107–140; BP diastolic 64–73; PULSE 41–68; RESP 14–22; TEMP 36.4; O2SAT 97–100; BMI 22.4
--- NOTE | 2024-01-21 16:33 | DI.RAD.S_ITS ---
PROCEDURE: XR CHEST 1V INDICATIONS: chest pain TECHNIQUE: One view of the chest was acquired. COMPARISON: [facility], , CHEST 1 VIEW, 02/22/2017, 17:09. FINDINGS: Surgical changes and devices: Left pacemaker distal leads in the projection of the right atrium right ventricle. Lungs and pleura: Lungs are clear. No pleural effusions or pneumothorax. Mediastinum: Aortic arch calcifications. Mediastinal contours otherwise appear normal. Heart size is normal. Bones and chest wall: No suspicious bony lesions. Overlying soft tissues appear unremarkable. IMPRESSION: No acute cardiothoracic process. Dictated by: Marco Deluca M.D. on 01/21/2024 at 17:59 Approved by: Marco Deluca M.D. on 01/21/2024 at 18:00
--- NOTE | 2024-01-21 16:37 | EKG_ITS ---
[address] [address] Test Date: 2024-01-21 Pat Name: José Luis Noonan Department: [facility] Room: Gender: Male Transition Teacher: JONNATHAN : 1940 Requested By: Order Number: [id number] Reading MD: Daniel Drake Measurements Intervals [place] Rate: 61 P: CA: 216 QRS: -78 QRSD: 150 T: 86 QT: 458 QTc: 461 Interpretive Statements AV dual-paced rhythm with prolonged AV conduction Electronically Signed On 01-21-2024 17:10:15 PDT by Daniel Drake
[2024-01-21 17:03] LABS: INR 1.1 (0.9-1.3); Prothrombin Time 12.1 SECONDS (9.4-12.5)
[2024-01-21 17:06] LABS: Add Manual Diff / Slide Review NO; Basophils Absolute Auto 0 /uL (0-100); Basophils Percent Auto 0.2 % (0-2); Eosinophils Absolute Auto 0 /uL (0-450); Eosinophils Percent Auto 0.3 % (2-4); Hematocrit 46.3 % (41-53); Lymphocytes Absolute Auto 800 /uL (1100-4500); Lymphocytes Percent Auto 7.2 % (25-40); Mean Corpuscular HGB Conc 34.5 % (30-36); Mean Corpuscular Hemoglobin 31.9 PG (26-34); Mean Corpuscular Volume 92.4 fL (80-100); Monocytes Absolute Auto 1200 /uL (0-900); Monocytes Percent Auto 10.7 % (3-14); Neutrophils Absolute Auto 9200 /uL (1500-7000); Neutrophils Percent Auto 81.6 % (50-75); PTT Partial Thromboplastin Tim 32 SECONDS (25.1-36.5); Platelet Count 205 X10^3/uL (150-400); Red Blood Cell Count 5.01 X10^6/uL (4.5-5.9); Red Cell Distribution Width 13.3 % (11.6-14.8); White Blood Cell Count 11.2 X10^3/uL (4.5-11.0)
[2024-01-21 17:09] LABS: Alanine Aminotransferase 17 IU/L (<50); Albumin 4.5 g/dL (3.5-5.0); Albumin Globulin Ratio 1.4 (1.0-2.8); Alkaline Phosphatase 165 U/L (38-126); Aspartate Aminotransferase 87 IU/L (17-59); BUN Creatinine Ratio 23.1 (6-22); Bilirubin Total 2.4 mg/dL (0.2-1.3); Blood Urea Nitrogen 21 mg/dL (9-20); Calcium 9.4 mg/dL (8.4-10.2); Carbon Dioxide 28 mmol/L (22-32); Chloride 104 mmol/L (98-107); Creatine Kinase 65 U/L (55-170); Estimated Glomerular Filt Rate > 60 mL/min (>60); Globulin 3.2 g/dL (1.7-4.1); Glucose 137 mg/dL (80-110); Lipase 789 U/L (23-300); Magnesium 2.1 mg/dL (1.6-2.3); Potassium 4.1 mmol/L (3.4-5.1); Sodium 139 mmol/L (137-145); Total Protein 7.7 g/dL (6.3-8.2)
[2024-01-21 17:33] LABS: HEMOLYSIS < 15 (0-50); NT-proBNP (BNP-Adult 18+) 310 pg/mL (<450); Troponin I < 0.012 ng/mL (0.01-0.034)
--- NOTE | 2024-01-21 17:50 | PC.NURSE ---
Pennie: from [employer] called in with report. Device is dual chamber pace with 2.5 years of battery life left on it. leads look stable. patient went into afib at 12 noon today and is still in it. appropriately mode switching
--- NOTE | 2024-01-21 18:33 | PC.NURSE ---
patient has Parkinson and has falls r/t this chronic disease. He has poor recall r/t to parkinsons. His stated that he was not feeling well at around 1200 noon when he took a nap and woke up feeling better until he had an unwitnessed fall which took 15 minutes for his to get him off the floor. He is alert and oriented and denies pain with palpation over head, neck, shoulder, arms, hands, chest, hips, abd, legs, knees and feet. His smile is symmetrical and his speach is fluid and clear. His pupils vary in reactivity. His left pupil is sluggish and 1-2mm. His right eye is reactive and 2-3 mm.
--- NOTE | 2024-01-21 18:35 | DI.CT.S_ITS ---
PROCEDURE: CT HEAD/BRAIN WO CON INDICATIONS: syncope TECHNIQUE: Noncontrast 4.5 mm thick angled axial sections acquired from the foramen magnum to the vertex, with coronal and sagittal reformats. For radiation dose reduction, the following was used: automated exposure control, adjustment of mA and/or kV according to patient size. COMPARISON: None. FINDINGS: Image quality: Diagnostic. CSF spaces: Basal cisterns are patent. No extra-axial fluid collections. The ventricles are symmetric in size and shape. Brain: No intracranial bleeds or masses. There is cerebral volume loss for age, with resultant ventricular and sulcal prominence. There are periventricular and deep white matter chronic small vessel ischemic changes. There is intracranial internal carotid artery atherosclerosis. Skull and face: Small rectal granulation along the right infratemporal fossa (3/10). Calvarium and visualized facial bones otherwise appear intact, without suspicious lesions. Sinuses: Visualized sinuses and mastoids are clear. IMPRESSION: No acute intracranial pathology. Dictated by: Marco Deluca M.D. on 01/21/2024 at 19:57 Approved by: Marco Deluca M.D. on 01/21/2024 at 19:59
--- NOTE | 2024-01-21 19:18 | ED.SYNCOPE ---
HPI - Syncope General Chief Complaint: Syncope Stated Complaint: bad fall, nausea, hx parkinsons Time Seen by Provider: 01/21/24 18:35 Source: patient Mode of arrival: Ambulatory History of Present Illness HPI narrative: 83-year-old male with history of parkinsonism, frequent falls, at home was heard to have had a fall in the bathroom by his , who found him a couple of minutes later as he did not seem to be responding to calls, he was sitting on the ground, alert and looking around, initially complained of left-sided chest discomfort that seems to have gotten better. He also has history of left-sided cardiac pacemaker, no AICD shocking mechanism, placed 2016. He had recent EGD procedure Dr. To, awaiting follow up. No black or red stools. No abdominal discomfort. His left chest discomfort seems to be present only on deep inspiration now. He does not remember having left-sided chest pain before the fall in the bathroom. No other areas of discomfort. He denies specifically pain in his head, face, neck, upper back, mid lower back, abdomen, upper extremities, lower extremities. Related Data Home Medications Medication Instructions Recorded Confirmed vitamin E mixed PO 06/19/20 01/06/24 carbidopa 25 mg-levodopa 100 mg 2.5 tab PO TID 10/02/20 01/06/24 tablet selegiline HCl 5 mg capsule 5 mg PO BID 10/02/20 01/06/24 aspirin 81 mg tablet,delayed mg PO prevent clotting 10/27/22 01/06/24 release (Enteric Coated Aspirin) donepezil 10 mg tablet 10 mg PO DAILY 10/27/22 01/06/24 sertraline 25 mg tablet 25 mg PO DAILY anxiety, depression 10/27/22 01/06/24 carbidopa ER 50 mg-levodopa 200 mg 1 tab PO ONCE 07/20/23 01/06/24 tablet,extended release atorvastatin 10 mg tablet 5 mg PO BEDTIME 09/25/23 01/06/24 Previous Rx's Medication Instructions Recorded tamsulosin 0.4 mg capsule See Rx Instructions .Route 08/14/21 .COMPLEX #90 caps finasteride 5 mg tablet 5 mg PO DAILY #30 tabs 07/29/23 cephalexin 500 mg capsule 500 mg PO TID #30 caps 07/31/23 famotidine 20 mg tablet 20 mg PO DAILY #90 tabs 12/23/23 Allergies Allergy/AdvReac Type Severity Reaction Status Date / Time No Known Drug Allergies Allergy Verified 01/12/24 10:10 Review of Systems Review of Systems Narrative: See HPI Patient History Medical History Gastric mass Elevated liver function tests Unintentional weight loss History of paroxysmal atrial tachycardia Early satiety Parkinson's disease Presence of Watchman left atrial appendage closure device Cholelithiasis Urge incontinence Prostate varices Chronic anticoagulation Gross hematuria BPH NOS w/o ur obs/LUTS Hematuria BPH (benign prostatic hyperplasia) GERD (gastroesophageal reflux disease) Surgical History Status post transurethral resection of prostate Family History Brother Parkinsons disease Sister Parkinsons disease Parkinson's disease dementia Sister Drug addiction Social History marital status: household members: spouse lives independently: Yes occupational status: previously employed Smoking Status: Never smoker second hand exposure: No alcohol intake: former substance use type: does not use Smoking Status: Never smoker alcohol intake frequency: 0-2 drinks per day Substance Use Type: does not use Exam Narrative Exam Narrative: GENERAL: Well-developed patient, in mild distress. HEAD: Atraumatic. Normocephalic. EYES: Pupils equal round and reactive. Extraocular motions intact. No scleral icterus. No injection or drainage. ENT: Nose without bleeding, purulent drainage. Throat without erythema, tonsillar hypertrophy or exudate. Airway patent. NECK: Trachea midline. Non tender CARDIOVASCULAR: Regular rate and rhythm without murmurs, gallops, or rubs. RESPIRATORY: Clear to auscultation. Breath sounds equal bilaterally. No wheezes, rales, or rhonchi. GASTROINTESTINAL: Abdomen soft, non-tender, nondistended. EXTREMITIES: No edema or joint tenderness. BACK: Nontender without deformity or crepitance. No flank tenderness. NEURO: AOx3. Motor functions grossly nonfocal SKIN: No rash or erythema of visible areas Initial Vital Signs Initial Vital Signs: Vital Signs Temperature 97.6 F 01/21/24 16:21 Pulse Rate 41 L 01/21/24 16:21 Respiratory Rate 20 01/21/24 16:21 Blood Pressure 107/64 01/21/24 16:21 Pulse Oximetry 97 01/21/24 16:21 Oxygen Delivery Method Room Air 01/21/24 16:21 Course Orders Ordered: ED Orders 01/21/24 16:33 XR chest 1V Stat EKG-12 Lead Stat 01/21/24 16:36 Complete Blood Count AUTO DIFF Stat Comprehensive Metabolic Panel Stat Lipase Stat Magnesium Stat NT-proBNP (BNP-Adult 18+) Stat PTT Partial Thromboplastin Cal Stat Prothrombin Time INR Stat Troponin & CK Cardiac Panel Stat 01/21/24 18:35 CT head/brain wo con Stat 01/21/24 20:18 Trop I [Troponin I] Stat Vital Signs Vital signs: Vital Signs - 8 hr 01/21/24 22:00 01/21/24 22:30 01/21/24 23:00 Pulse Rate 64 67 68 Respiratory Rate 20 21 18 Blood Pressure Pulse Oximetry 99 97 97 Oxygen Delivery Method 01/21/24 23:20 Pulse Rate 65 Respiratory Rate 16 Blood Pressure 140/68 Pulse Oximetry 98 Oxygen Delivery Method Room Air MDM - Syncope Lab Data Attestation: I reviewed the patient's lab results. Lab results narrative: White blood cell count 33910, hemoglobin 16, platelets [id number] adequate. Basic metabolic panel unremarkable, normal renal function. Liver functions normal. Lipase elevated 700s noted. Troponin negative/unmeasurable. BNP not significantly elevated. 01/21/24 16:36 01/21/24 16:36 Labs: Lab Results 01/21/24 01/21/24 Range/Units 16:36 20:18 WBC 11.2 H (4.5-11.0) X10^3/uL RBC 5.01 (4.5-5.9) X10^6/uL Hgb 16.0 (13.5-17.5) g/dL Hct 46.3 (41-53) % MCV 92.4 (80-100) fL MCH 31.9 (26-34) PG MCHC 34.5 (30-36) % RDW 13.3 (11.6-14.8) % Plt Count 205 (150-400) X10^3/uL Neut % (Auto) 81.6 H (50-75) % Lymph % (Auto) 7.2 L (25-40) % Nobles % (Auto) 10.7 (3-14) % Eos % (Auto) 0.3 L (2-4) % Baso % (Auto) 0.2 (0-2) % Neut # (Auto) 9200 H (9821-7437) /uL Lymph # (Auto) 800 L (1292-2505) /uL Nobles # (Auto) 1200 H (0-900) /uL Eos # (Auto) 0 (0-450) /uL Baso # (Auto) 0 (0-100) /uL PT 12.1 (9.4-12.5) SECONDS INR 1.1 (0.9-1.3) APTT 32 (25.1-36.5) SECONDS Sodium 139 (137-145) mmol/L Potassium 4.1 (3.4-5.1) mmol/L Chloride 104 (98-107) mmol/L Carbon Dioxide 28 (22-32) mmol/L BUN 21 H (9-20) mg/dL Creatinine 0.91 (0.66-1.25) mg/dL Estimated GFR > 60 (>60) mL/min BUN/Creatinine Ratio 23.1 H (6-22) Glucose 137 H (80-110) mg/dL Calcium 9.4 (8.4-10.2) mg/dL Magnesium 2.1 (1.6-2.3) mg/dL Total Bilirubin 2.4 H (0.2-1.3) mg/dL AST 87 H (17-59) IU/L ALT 17 (<50) IU/L Alkaline Phosphatase 165 H (38-126) U/L Total Creatine Kinase 65 (55-170) U/L Troponin I < 0.012 < 0.012 (0.01-0.034) ng/mL NT-Pro-B Natriuret Pep 310 (<450) pg/mL Total Protein 7.7 (6.3-8.2) g/dL Albumin 4.5 (3.5-5.0) g/dL Globulin 3.2 (1.7-4.1) g/dL Albumin/Globulin Ratio 1.4 (1.0-2.8) Lipase 789 H (23-300) U/L Urine Dip Bedside Urine Glucose Negative Bedside Urine Bilirubin - Negative Bedside Urine Ketone +/- 5 Urine Specific Bend 1.010 Bedside Urine Occult Blood - Negative Bedside Urine pH 7.5 Bedside Urine Protein - Negative Bedside Urine Urobilinogen +/- 1mg Bedside Urine Nitrite - Negative Bedside Urine Leukocytes +/- 15 Esterase Imaging Data Chest x-ray: Radiologist's Impression: Close Head CT 01/21/24 Chest X-Ray (Signed) Marco Deluca - 01/21/24 Launch?Image [address] [address] XRay Report Signed Patient: José Luis Noonan MR#: [id number] : 1940 Acct:[id number] Age/Sex: 83 / M Date of Service: 01/21/24 Loc: ED Accession Number: [id number] Procedure: XR chest 1V Ordering Provider: Florecita Ramirez MD PROCEDURE: XR CHEST 1V INDICATIONS: chest pain TECHNIQUE: One view of the chest was acquired. COMPARISON: [facility], CHEST 1 VIEW, 02/22/2017, 17:09. FINDINGS: Surgical changes and devices: Left pacemaker distal leads in the projection of the right atrium right ventricle. Lungs and pleura: Lungs are clear. No pleural effusions or pneumothorax. Mediastinum: Aortic arch calcifications. Mediastinal contours otherwise appear normal. Heart size is normal. Bones and chest wall: No suspicious bony lesions. Overlying soft tissues appear unremarkable. IMPRESSION: No acute cardiothoracic process. Dictated by: Marco Deluca M.D. on 01/21/2024 at 17:59 Approved by: Marco Deluca M.D. on 01/21/2024 at 18:00 ECG Data Attestation: I personally reviewed and interpreted this ECG as follows: Interpretation: 1637, AV dual paced rhythm with prolonged AV conduction, ventricular rate 61. OR 216, QRS 150, QT see 461. MDM Narrative Medical decision making narrative: 83-year-old male with history of pacemaker, had syncopal episode. EKG shows AV sequential paced rhythm. Screening labs unremarkable except for mild lipase elevation, no nausea or vomiting, no tenderness on a abdominal exam. Initial troponin negative. Pacer interrogation requested. Chest x-ray shows left upper chest pacemaker, normal coursing wires, no traumatic changes described, no acute changes. See radiology report. Patient/family made aware of mild lipase elevation, no tenderness on examination, we discussed imaging of the abdomen, no tenderness, declined. We will repeat interval troponin. Repeat troponin also negative/nonmeasurable. Pacer interrogation report from [employer], [employer] device noted. Will consult Cardiology for interpretation and recommendations. Case discussed with Cardiology Dr Pradhan, she was able to access some of the interrogation report, believes that there is a chronic problem with the device and likely we will need lead replacement in follow up, does not believe there is any dysrhythmia issues that would have contributed to the fall tonight. She will further look at the report in their [employer] system and call back. Call back from Dr. Pradhan, who was able to further interpret the [employer] interrogation report, believes that there is a faulty lead, unable to sense or pace atrium, we will need lead replaced. She does not believe that the problem has caused any type of syncopal episode tonight, as this has sensing/pacing broken lead wire been present for multiple months, patient has not syncopized during that interval time. She has sent a message to the pacer clinic at [facility], who will contact patient, to help coordinate lead revision surgery. Cardiology feedback relayed to patient/family. Patient discharged home with family. Follow up with pacer clinic as above. Discharge Plan Departure Patient Disposition: Home Clinical Impression: Fall, Chest discomfort, History of Parkinson disease, Increased serum lipase level, History of cardiac pacemaker Instructions: DI for Syncope in Adults (Fainting) Activity Restrictions/Additional Instructions: Fall unwitnessed in the shower area, EKG showed paced rhythm, serial troponins not suggestive of heart attack at this time. Urine dip negative for obvious infection. Chest discomfort, unclear if this was result of the fall, or preceding/cause of any fall, no gross trauma on examination. Chest x-ray unremarkable. Pacer interrogation was performed, there were some abnormalities. We requested interpretation services by on-call Cardiology Dr. Pradhan, who was able to look within the system to review the pacer interrogation. She felt that there was some problem ongoing with the atrial wire, felt that it likely needs to be replaced, however this problem with it inability to sense or pace accurately in the atrium seemed to be present for a number of months, so likely not a cause of any fall tonight in her opinion. Dr. Pradhan however did believe that this wire we would likely need to be revised surgically. She stated that the pacer clinic [facility] would contact you regarding coordination of surgical revision of that pacemaker wire. Lipase blood tests was mildly elevated, however you did not have any tenderness on your abdomen. We discussed CT imaging of the abdomen, declined. Consider repeat lipase blood testing and follow up to make sure that is not further rising or of any concern. Follow up with your endoscopist surgeon Dr. To for follow up of your recent EGD results as planned. Prescriptions: No Action tamsulosin 0.4 mg capsule See Rx Instructions .ROUTE .COMPLEX Qty: 90 1RF Dose Instruction: TAKE 1 CAPSULE BY MOUTH AT BEDTIME Rx Instructions: TAKE 1 CAPSULE BY MOUTH AT BEDTIME cephalexin 500 mg capsule 500 mg PO TID Qty: 30 0RF famotidine 20 mg tablet 20 mg PO DAILY Qty: 90 1RF selegiline HCl 5 mg capsule 5 mg PO BID atorvastatin 10 mg tablet 5 mg PO BEDTIME vitamin E mixed PO carbidopa-levodopa 25-100 mg tablet 2.5 tab PO TID sertraline 25 mg tablet 25 mg PO DAILY aspirin [Enteric Coated Aspirin] 81 mg tablet,delayed release (DR/EC) PO donepezil 10 mg tablet 10 mg PO DAILY carbidopa-levodopa 50-200 mg tablet extended release 1 tab PO ONCE finasteride 5 mg tablet 5 mg PO DAILY Qty: 30 12RF Referrals: Rajinder To MD [Physician] - Thai Francisco DO [Primary Care Provider] - Lanie Pradhan MD [Physician] - Stand Alone Forms: Patient Portal/API/Survey
[2024-01-21 20:59] LABS: Troponin I < 0.012 ng/mL (0.01-0.034)
== END 2024-01-21 23:21 | disposition home or self-care (01) ==
PROVIDERS: Emergency Medicine; Emergency Provider Emergency Medicine; Family Provider Family Medicine; PCP Family Medicine
DX: R07.9 Chest pain, unspecified (principal); R74.8 Abnormal levels of other serum enzymes; Z95.0 Presence of cardiac pacemaker; Z86.69 Personal history of other diseases of the nervous system and sense organs; W19.XXXA Unspecified fall, initial encounter
CPT/HCPCS: 36415; 70450; 71045; 80053; 81003; 82550; 83690; 83735; 83880; 84484; 85025; 85610; 85730; 93005; 99283; 99284

== ENCOUNTER → 2024-01-26 08:03 | Outpatient (CLI) | payer OTHER, SELFPAY ==
--- NOTE | 2024-01-26 09:12 | DI.CT.S_ITS ---
PROCEDURE: CT ABDOMEN PELVIS W CON INDICATIONS: Gastric mass TECHNIQUE: After the administration of intravenous contrast, axial sections acquired from the lung bases to the pubic symphysis. Coronal and sagittal reformats were performed. For radiation dose reduction, the following was used: automated exposure control, adjustment of mA and/or kV according to patient size. COMPARISON: [facility], CT, CT KIDNEY URETER BLADDER (KUB), 06/16/2022, 13:14. FINDINGS: Image quality: Diagnostic. Lower Chest: No significant findings. Pacemaker leads are present. Atrial appendage occlusion device is present. ABDOMEN: Liver: No solid mass. Gallbladder: Numerous small gallstones in the gallbladder. No pericholecystic inflammatory changes. Biliary ducts: No biliary dilation. Pancreas: No ductal dilation. Spleen: Size is within normal limits. Adrenal Glands: No adrenal nodules. Kidneys and Ureters: No hydronephrosis. No solid mass. No complex renal cystic lesion which requires follow up. Benign-appearing left renal cyst. Stomach and Bowel: A bilobed solid mass is seen along the greater curvature of the stomach measuring approximately 6.4 x 3.3 by 4.1 cm (5/37 and 4/40). The mass has both intraluminal and extramural components. Multiple diverticula are seen in the colon without signs of acute diverticulitis. Moderate to large volume of stool in the colon. No oral contrast material is seen within the colon. Possible 0.6 cm intraluminal filling defects within the small bowel in the lateral left abdomen (4/39) and the pelvis (4/54). Peritoneum: No abnormal intraperitoneal fluid. No free air. Ventral Wall: No significant ventral hernia. Abdominal Nodes: No retroperitoneal or mesenteric adenopathy by size criteria. Vessels: Aorta and inferior vena cava are normal in size. PELVIS: Pelvic Organs: Unremarkable. Bladder: No bladder wall thickening, accounting for underdistention. Pelvic Nodes: No enlarged lymph nodes. Miscellaneous: No inguinal hernias are seen. Bones: No aggressive osseous abnormality. Degenerative changes are seen in the hips and spine. IMPRESSION: 1. Circumscribed solid bilobed mass centered on the greater curvature of the stomach measuring up to 6.4 cm with intraluminal and extramural components. Recommend endoscopy for further evaluation and biopsy. 2. Possible subcentimeter filling defects within small bowel loops may represent prominent mucosal folds versus small intraluminal polyps or masses. 3. No sign of enlarged lymph nodes in the abdomen or pelvis. 4. Cholelithiasis. 5. Colonic diverticulosis. Moderate to large volume of colonic stool. Approved by: Ramírez Valencia M.D. on 01/26/2024 at 12:00
== END ==
LOC: CT 08:03
PROVIDERS: Family Provider Family Medicine; PCP Family Medicine; Referring Provider Surgery; Visit Provider Surgery
DX: K31.89 Other diseases of stomach and duodenum (principal); K80.20 Calculus of gallbladder without cholecystitis without obstruction; Z95.0 Presence of cardiac pacemaker; N28.1 Cyst of kidney, acquired; K57.90 Diverticulosis of intestine, part unspecified, without perforation or abscess without bleeding
CPT/HCPCS: 74177; Q9967

== ENCOUNTER → 2024-05-24 08:16 | Outpatient (CLI) | payer OTHER, SELFPAY ==
[2024-05-24 09:00] LABS: Estimated Glomerular Filt Rate > 60 mL/min (>60)
== END ==
PROVIDERS: Family Provider Family Medicine; PCP Family Medicine; Referring Provider Surgery; Visit Provider Surgery
DX: K31.89 Other diseases of stomach and duodenum (principal)
CPT/HCPCS: 36415; 82565

== ENCOUNTER → 2024-05-26 10:10 | Outpatient (CLI) | payer OTHER, SELFPAY ==
--- NOTE | 2024-05-26 10:12 | DI.CT.S_ITS ---
PROCEDURE: CT ABDOMEN PELVIS W CON INDICATIONS: Gastric mass TECHNIQUE: After the administration of intravenous contrast, axial sections acquired from the lung bases to the pubic symphysis. Coronal and sagittal reformats were performed. For radiation dose reduction, the following was used: automated exposure control, adjustment of mA and/or kV according to patient size. COMPARISON: [facility], CT, CT ABDOMEN PELVIS W CON, 01/26/2024, 9:21. FINDINGS: Image quality: Diagnostic. Lower Chest: Lung bases are clear. Small hiatal hernia. Heart size is normal. Coronary atherosclerotic vascular calcifications are noted. ABDOMEN: Liver: No solid mass. Gallbladder: Numerous small layering gallstones within the gallbladder without evidence for gallbladder wall thickening or pericholecystic stranding. A few stones are noted in the distal aspect of the gallbladder neck. No associated biliary ductal dilatation. Biliary ducts: No biliary dilation. Pancreas: Homogeneous enhancement without focal lesions or pancreatic ductal dilatation. No peripancreatic inflammation or organized fluid collections. Spleen: Size is within normal limits. Adrenal Glands: No adrenal nodules. Kidneys and Ureters: No hydronephrosis. No solid mass. No complex renal cystic lesion which requires follow up. Stable left renal cyst. Stomach and Bowel: Normal colonic wall thickness. Extensive colonic diverticulosis without acute diverticulitis. Moderate fecal burden seen throughout the colon. Normal appendix. Within the opacified segments of nondistended, non thickened small bowel, previously described possible intraluminal filling defects versus mucosal folds versus polyps or masses are not visualized on today's examination. This in part may be secondary to areas of decompressed small bowel and degree of oral contrast within previous visualized segments of small bowel. Moderate circumferential wall thickening of the distal esophagus and gastroesophageal junction. Redemonstration of bilobed mass in the greater curvature of the stomach measuring approximately 6.4 x 4.0 cm in axial cross-sectional dimension (image 30/series 2) and approximately 4.3 cm in craniocaudal dimension (81/series 4). Peritoneum: No abnormal intraperitoneal fluid. No free air. Ventral Wall: No significant ventral hernia. Abdominal Nodes: No retroperitoneal or mesenteric adenopathy by size criteria. Vessels: Aorta and inferior vena cava are normal in size. PELVIS: Pelvic Organs: Mild prostatomegaly. Bladder: No bladder wall thickening, accounting for underdistention. Pelvic Nodes: No enlarged lymph nodes. Miscellaneous: No inguinal hernias are seen. Bones: No aggressive osseous abnormality. No acute vertebral body compression fractures. Multilevel spondylitic changes throughout the imaged spine. No suspicious osseous lesions. Severe degenerative changes of the right hip. Moderate-severe degenerative changes of the left hip. IMPRESSION: 1. Redemonstration of circumscribed, bilobed solid mass centered along the greater curvature of the stomach measuring approximately 6.4 x 4.0 x 4.3 cm, previously 6.4 x 3.3 x 4.1 cm. Accounting for differences in imaging technique and positioning, this mass is not significantly changed. Recommend direct visualization with endoscopy if not already accomplished. 2. Previously described possible subcentimeter intraluminal filling defects within the small bowel are not appreciated on this examination and may have represented interval transit of ingested material, resolution of mucosal folds, although small intraluminal polyp/mass is not completely excluded given differences in imaging technique and differences in degree of contrast opacification and distention of the small bowel. 3. Cholelithiasis without CT evidence for acute cholecystitis. 4. Extensive colonic diverticulosis without acute diverticulitis. 5. Other chronic/non-acute findings as above. Dictated by: Riley Montiel M.D. on 05/26/2024 at 14:46 Approved by: Riley Montiel M.D. on 05/26/2024 at 15:03
== END ==
PROVIDERS: Family Provider Family Medicine; PCP Family Medicine; Referring Provider Surgery; Visit Provider Surgery
DX: K31.89 Other diseases of stomach and duodenum (principal); K44.9 Diaphragmatic hernia without obstruction or gangrene; I25.10 Atherosclerotic heart disease of native coronary artery without angina pectoris; K80.20 Calculus of gallbladder without cholecystitis without obstruction; N28.1 Cyst of kidney, acquired; K57.90 Diverticulosis of intestine, part unspecified, without perforation or abscess without bleeding; N40.0 Benign prostatic hyperplasia without lower urinary tract symptoms
CPT/HCPCS: 74177; Q9967

== ENCOUNTER 2024-09-09 13:31 | Outpatient (RCR) | payer OTHER, SELFPAY ==
--- NOTE | 2024-09-09 16:37 | PT.OIE ---
Addendum entered and electronically signed by Cordell Kulkarni, PT 09/09/24 16:40: PT direct supervision and direction to student PT Jose Albert throughout session Original Note: Current Diagnoses Parkinsonism, unspecified (09/09/24) Unsteadiness on feet (09/09/24) Other symptoms and signs involving the musculoskeletal system (09/09/24) Past Medical History (Last Reviewed 08/04/24 @ 12:33 by Thai Francisco DO) BPH (benign prostatic hyperplasia) BPH NOS w/o ur obs/LUTS Cholelithiasis Chronic anticoagulation Early satiety Elevated liver function tests Gastric mass GERD (gastroesophageal reflux disease) Gross hematuria Hematuria History of gross hematuria History of paroxysmal atrial tachycardia Hypotension Incomplete emptying of bladder Parkinson's disease Presence of Watchman left atrial appendage closure device Prostate varices Skin lesion Unintentional weight loss Urge incontinence Past Surgical History (Last Reviewed 08/04/24 @ 12:33 by Thai Francisco DO) Status post transurethral resection of prostate Visit Care Team Role Provider Type Thai Francisco DO Attending Provider Physician Family Provider Primary Care Provider Referring Provider Specialty: [facility] Practice Address: [address] [place] [address] Email: [email or web address] Initial Evaluation PT-OP-A Visit Information Start: 09/09/24 14:32 Freq: Status: Active Protocol: Document 09/09/24 13:46 LFG (Rec: 09/09/24 15:50 LFG [id number]) Out-Patient Physical Therapy Visit Information Visit Information Visit Type Initial Evaluation Visit Start Time 01:46 Visit Stop Time 02:28 Visit Number 1 Evaluation Information Evaluation Date 09/09/24 PT-OP-B Current Condition Start: 09/09/24 14:32 Freq: Status: Active Protocol: Document 09/09/24 13:46 LFG (Rec: 09/09/24 15:50 LFG [id number]) Current Condition History of Current Condition Current Complaints R Hip pain, bilateral shoulder soreness History of Current Patient is 84 year old male who was diagnosed with Condition Parkinson's disease in 2013 and has been attending [facility] therapy since 2017 and is currently attending aquatic therapy 1x/week. Patient is currently ambulating with cane and reports that he still doing lawn work around the house. Prefers walking uphill and tries to avoid downhill as it is much harder with his condition. Patient and report that loud crashing falls occur only once every couple of months, but has little falls every day a couple of times. Patient reports the fall occurs from stumbling on objects or just from a loss of balance. Has trouble with quick movements and turning especially towards his L more than his R. Has a lot of railing all around the house which he finds helpful. Newest development per pt is localized R hip pain. Had X rays and was told he has arthritis. Pt reports R hip pain symptoms occur with movement, and denies being in any sort of pain while just sitting. Due to his memory problems, states that communication should be largely through her as he tends to forget and relay important information to her. reports several instances where the pt presents with new wounds but can 't recall how he got them. Has been off blood thinners for 3 years since his last cardiac surgery, but still bruises easily. Both pt and mention that PT in the past involving passive stretching was helpful. Developmental History Developmental Diagnosed with Parkinson's disease 2013. Attending [facility] therapy since 2017. Memory issues. Treatment Goals Patient/Caregiver To keep as mobile as I can. To keep him going Goals PT-OP-D Balance Start: 09/09/24 14:32 Freq: Status: Active Protocol: Document 09/09/24 13:46 LFG (Rec: 09/09/24 15:50 LFG [id number]) Mancia Balance Assessment Evaluation Sitting to Standing Independent w/out Hands Ability Unsupported Stance Supervision- 2 minutes Sitting Unsupported, Safely- 2 minutes Feet on Floor Standing to Sitting Independent, Uncontrolled Ability Transfer Ability Safely, Hand Use Unsupported Stance- Supervision, 10 seconds Eyes Closed Unsupported Stance- Supervision to maintain Eyes Open Reaching Forward Supervision Needed Standing Pick- Up Object From Supervision Floor Look Behind Shoulder Supervision w/Turning - Standing Turning 360 Degrees Supervision/Verbal Cues Unsupported Stance, 4 Steps w/Supervision Alternating Feet on Stair Unsupported Tandem Small Step- 30 seconds Stance Unilateral Leg Lifts Leg/Unable to Hold Stance Total Score Mancia Total Score ( 32 out of 56 points) Mancia Impairment 40 to 59% Impaired (Score 23-33) Rating PT-OP-E Functional Tests Start: 09/09/24 14:32 Freq: Status: Active Protocol: Document 09/09/24 13:46 LFG (Rec: 09/09/24 15:50 LFG [id number]) Functional Tests 30 Second Sit to Stand Test Score x6 Comments 20.5 height (mat table) PT-OP-M Strength Start: 09/09/24 14:32 Freq: Status: Active Protocol: Document 09/09/24 13:46 LFG (Rec: 09/09/24 15:50 LFG [id number]) Hip Strength Hip Manual Muscle Testing Right Flexion (L2) 4- Good- Abduction 3+ Fair+ External Rotation 4- Good- Internal Rotation 4 Good Comments ext unable to test due to pain in prone Left Flexion (L2) 4 Good Abduction 4- Good- External Rotation 4 Good Internal Rotation 4 Good Comments ext unable to test due to hip pain in prone Knee Strength Knee Manual Muscle Testing Right Flexion (S2) 4- Good- Extension (L3) 4- Good- Left Flexion (S2) 4 Good Extension (L3) 4- Good- Ankle/Foot Strength Ankle and Foot Manual Muscle Testing Right Dorsiflexion (L4) 4- Good- Plantarflexion (S1) 4+ Good+ Left Dorsiflexion (L4) 4- Good- Plantarflexion (S1) 4+ Good+ PT-OP-T Assessment and Plan Start: 09/09/24 14:32 Freq: Status: Active Protocol: Document 09/09/24 13:46 LFG (Rec: 09/09/24 15:50 LFG [id number]) Physical Therapy Assessment Rehab Potential Rehabilitation Fair Potential Evaluation Complexity Number of Personal 3 or More Factors/ Comorbidities Number of Body 4 or More Systems Impaired Clinical Unstable Presentation at Evaluation Impairments Impairments Activity Tolerance,Balance,Coordination,Functional Activities,Functional Mobility,Gait,Pain,Posture,ROM, Soft Tissue Mobility,Strength Goals Three Impairment Mancia balance score 32/56 Shelter Goal (LTG) Patient will increase mancia balance score from 32 to a 40/56 in order to demonstrate a decreased risk of falls at home LTG Duration 12/10/24 Two Impairment Patient 30STS score of 6x Shelter Goal (LTG) Patient will increase his 30STS from 6x to 11x to increase his activity tolerance and ambulation out during his lawn work pruning and weeding. LTG Duration 12/10/24 One Impairment Patient does no have a cohesive HEP Short Term Goal (STG Patient will develop a cohesive HEP that they can ) follow independently and be compliant with STG Duration 10/21/24 Assessment Summary Assessment Patient presents to PT with complaints of R hip pain demonstrating decreased activity tolerance, difficulty with gait and balance, and bilateral LE weakness L>R. Patient is experiencing memory loss and frequent falls and stumbles that may be attributed to his Parkinson's diagnosis. Recommend testing dynamic gait index, timed up and go, and ROM next visit. Patient may benefit from skilled intervention focusing on balance, strength, and activity tolerance. Physical Therapy Plan Frequency and Duration Frequency of 2x/Week Treatment Plan of Care Start 09/09/24 Date Plan of Care End 12/10/24 Date Therapeutic Interventions Therapeutic Balance Training,Coordination Training,Gait Training, Interventions Home Exercise Program,Joint Mobilizations,Manual Therapy,Neuromuscular Re-education,Patient/Caregiver Education,Self-Care/Home Management,Soft Tissue Mobilization,Therapeutic Activities,Therapeutic Exercises Modalities Cold Pack/Ice Massage,Electric Stimulation,Hot Packs, Infrared Therapy,Traction- Mechanical,Ultrasound Next Visit Focus/Plan Next Note Type Treatment Note Next Visit Plan Testing for DGI, TUG, and hip ROM Begin training static/dynamic balance functional strengthening, mobility, and activity tolerance.
--- NOTE | 2025-01-11 12:39 | PT.OPDS ---
Current Diagnoses Parkinsonism, unspecified (09/09/24) Unsteadiness on feet (09/09/24) Other symptoms and signs involving the musculoskeletal system (09/09/24) Visit Care Team Role Provider Type Thai Francisco DO Attending Provider Physician Family Provider Primary Care Provider Referring Provider Specialty: Family Practice Address: [address] [place] [address], [facility] Email: [email or web address] Visit Number Visit Number 1 Discharge Summary PT-OP-T Assessment and Plan Start: 09/09/24 14:32 Freq: Status: Active Protocol: Document 01/11/25 12:37 DCW (Rec: 01/11/25 12:39 DCW [id number]) Physical Therapy Assessment Assessment Summary Assessment Pt has not been seen since his initial evaluation, cancelled all follow-up visits. His plan of care has since . Pt will require a new referral in order to return in the future. Pt will be discharged from skilled therapy at this time. Physical Therapy Plan Discharge Physical Therapy Discharge Reasons No Longer Attending PT
== END 2025-01-17 11:02 | disposition home or self-care (01) ==
LOC: PHYS 13:31
PROVIDERS: Family Provider Family Medicine; PCP Family Medicine; Referring Provider Family Medicine; Visit Provider Family Medicine
DX: G20.C Parkinsonism, unspecified (principal); R26.81 Unsteadiness on feet; R29.898 Other symptoms and signs involving the musculoskeletal system
CPT/HCPCS: 97163

== ENCOUNTER → 2024-09-14 11:50 | Outpatient (CLI) | payer OTHER, SELFPAY ==
--- NOTE | 2024-09-14 11:51 | DI.RAD.S_ITS ---
PROCEDURE: XR HIP W PEL IF DONE RT 2V INDICATIONS: Progressive right hip pain TECHNIQUE: Two views of the hip were acquired. COMPARISON: None. FINDINGS: Bones: There are no osseous abnormalities. SI and hip joints: Severe right and moderate left hip degeneration noted. Mild bilateral SI joint degeneration. Severe L5-S1 degenerative disc and facet disease Soft tissues: No soft tissue swelling, calcification or mass. IMPRESSION: Severe right hip degeneration Dictated by: Kojo Avilez M.D. on 09/15/2024 at 13:00 Approved by: Kojo Avilez M.D. on 09/15/2024 at 13:01
== END ==
LOC: RAD 11:51
PROVIDERS: Family Provider Family Medicine; PCP Family Medicine; Referring Provider Family Medicine; Visit Provider Family Medicine
DX: M16.0 Bilateral primary osteoarthritis of hip (principal); M25.551 Pain in right hip; M47.817 Spondylosis without myelopathy or radiculopathy, lumbosacral region; M47.818 Spondylosis without myelopathy or radiculopathy, sacral and sacrococcygeal region; M51.379 Other intervertebral disc degeneration, lumbosacral region without mention of lumbar back pain or lower extremity pain
CPT/HCPCS: 73502

== ENCOUNTER → 2025-01-24 14:04 | Outpatient (CLI) | payer OTHER, SELFPAY ==
[2025-01-24 16:04] LABS: Prostate Specific Antigen 1.70 ng/mL (0.10-4.00)
== END ==
PROVIDERS: PCP Family Medicine; Referring Provider Urology; Visit Provider Urology
DX: N40.0 Benign prostatic hyperplasia without lower urinary tract symptoms (principal)
CPT/HCPCS: 36415; 84153